=== PATIENT | male | born 1950 | race Caucasian/White ===

== ENCOUNTER → 2019-12-03 09:22 | Outpatient (CLI) | payer MEDICARE, SELFPAY ==
--- NOTE | ~2019-12-03 | MR_ITS ---
EXAMINATION: MR lumbar spine wo con EXAM DATE: 12/03/2019 09:56 INDICATION: Low back pain, bilateral hip pain. Difficulty walking. TECHNIQUE: Multi-sequential, multiplanar MR images of the lumbar spine were obtained without contrast . Sagittal T1, T2, T2 fat saturation images. Axial T2 weighted images. There is no prior study for comparison. FINDINGS: There is moderate to severe disc disease L1-2, L4-5 and L5-S1, moderate at the L2-3 and 3-4 levels. There are no focal marrow signal abnormalities suspicious for malignancy or acute fracture. There is 2 mm retrolisthesis L3 on L4. The vertebral bodies are otherwise aligned. The conus medull alessia terminates at the T12-L1 level and has normal signal intensity and morphology. There is a right renal fluid intensity lesion measuring about 3 cm, incompletely imaged, likely a cyst. Level by level evaluation: T12-L1: Disc does not extend beyond the endplate margin. Facet arthropathy: Mild. Neural foraminal stenosis: No stenosis. Central canal stenosis: No stenosis. L1-L2: There is a moderate diffuse disc bulge. Facet arthropathy: Mild. Neural foraminal stenosis: No stenosis. Central canal stenosis: Mild. L2-L3: There is a moderate diffuse disc bulge. Facet arthropathy: Mild. Neural foraminal stenosis: Mild left. Central canal stenosis: Mild. L3-L4: There is a moderate diffuse disc bulge. Facet arthropathy: Mild to moderate. Neural foraminal stenosis: Mild to moderate bilateral. Central canal stenosis: Mild to moderate. L4-L5: There is a moderate diffuse disc bulge. Facet arthropathy: Mild to moderate. Neural foraminal stenosis: Moderate bilateral. Central canal stenosis: Mild. L5-S1: There is a moderate diffuse disc bulge. Facet arthropathy: Mild. Neural foraminal stenosis: Mild to moderate bilateral. Central canal stenosis: Mild. IMPRESSION: 1. Overall moderate to severe disc disease, mild to moderate arthropathy and stenosis. Reviewed, dictated and finalized at location A. IMPRESSION: 1. Overall moderate to severe disc disease, mild to moderate arthropathy and s tenosis.
== END ==
PROVIDERS: Visit Provider Orthopaedic Surgery
DX: M48.062 Spinal stenosis, lumbar region with neurogenic claudication (principal); M51.24 Other intervertebral disc displacement, thoracic region
CPT/HCPCS: 72148

== ENCOUNTER → 2020-04-04 09:54 | Outpatient (CLI) | payer MEDICARE, SELFPAY ==
--- NOTE | ~2020-04-04 | MR_ITS ---
EXAMINATION: MR knee RT wo con DATE: 04/04/2020 11:07 INDICATION: Internal derangement of the right knee TECHNIQUE: Magnetic resonance imaging (MRI) of the right knee was performed without intravenous contr ast. Sequences included coronal PD-weighted FSE, coronal PD-weighted FS FSE, sagittal T2-weighted FS E, sagittal PD-weighted FS FSE and axial PD weighted fat saturated FSE. COMPARISON: None. FINDINGS: Medial compartment: Complex tear of the body and posterior horn of the medial meniscus with small meniscal body and macer ated appearance to the posterior horn. Full/near full-thickness chondral ulceration with underlying s ubarticular edema at the central to medial aspect of the medial tibial plateau. Additional deep chond ral ulceration and fissuring throughout the weightbearing medial femoral condyle with mild irregulari ty to the articular cortex along the medial margin of the central to posterior weightbearing medial f emoral condyle. Lateral compartment: Lateral meniscus is normal. Chondral surface irregularity with partial thickness fissuring at the pos terior aspect of the lateral tibial plateau and along the anterior weightbearing lateral femoral cond yle. Patellofemoral compartment: Deep chondral fissuring with mild subarticular edema at the apical ridge. Deep chondral fissuring wit hout degenerative subchondral changes at the medial patellar facet and inferior aspect of the lateral facet. Trochlear cartilage is relatively preserved. Ligaments and tendons: Anterior and posterior cruciate ligaments are normal. The medial collateral ligament and fibular janeen ateral ligament complex are normal. Mild distal quadriceps tendinopathy. Patellar tendon is normal. T he visualized medial and lateral hamstring tendons as well as the iliotibial band are normal. Fluid: Small knee joint effusion. No loose osteochondral bodies identified. Moderate-sized Friend's cyst. Osseous/other: Aside from the previously noted subarticular edema there is normal marrow signal. No fracture or path ologic marrow replacing process. IMPRESSION: 1. Complex medial meniscal tear. 2. 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 3. Likely reactive small right knee joint effusion. 4. Moderate-sized Friend's cyst. Reviewed, dictated and finalized at location A. E RECORDER IMPRESSION: 1. Complex medial meniscal tear. 2. 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 3. Likely reactive small right knee joint effusion. 4. Moderate-sized Friend's cyst.
== END ==
PROVIDERS: PCP Internal Medicine; Visit Provider Orthopaedic Surgery
DX: M71.21 Synovial cyst of popliteal space [Baker], right knee (principal); M17.11 Unilateral primary osteoarthritis, right knee; S83.231A Complex tear of medial meniscus, current injury, right knee, initial encounter; X58.XXXA Exposure to other specified factors, initial encounter
CPT/HCPCS: 73721

== ENCOUNTER 2020-04-11 11:36 | Outpatient (CLI) | payer MEDICARE, SELFPAY ==
--- NOTE | 2020-04-11 11:40 | ECG_ITS ---
Measurements Intervals [place] Rate: 71 P: 1 CT: 161 QRS: -21 QRSD: 113 T: 9 QT: 357 QTc: 389 Interpretive Statements SINUS RHYTHM INCOMPLETE RIGHT BUNDLE BRANCH BLOCK DELAYED PRECORDIAL R/S TRANSITION CONSIDER INFERIOR INFARCT, AGE INDETERMINATE ABNORMAL ECG Electronically Signed On 04-11-2020 11:51:29 [employer] by Alcides Moreno D.O.
== END 2020-04-11 11:37 | disposition home or self-care (01) ==
LOC: ANHSURGERY 11:39
PROVIDERS: PCP Internal Medicine; Visit Provider Orthopaedic Surgery
DX: Z01.818 Encounter for other preprocedural examination (principal); Z20.828 Contact with and (suspected) exposure to other viral communicable diseases; I45.10 Unspecified right bundle-branch block
CPT/HCPCS: 93005

== ENCOUNTER 2020-04-15 01:15 | Outpatient (CLI) | payer MEDICARE, SELFPAY ==
[2020-04-15 18:58] LABS: SARS-CoV-2 RNA PCR Negative
== END 2020-04-15 01:16 | disposition home or self-care (01) ==
LOC: ANHCOVIDDT 01:16
PROVIDERS: PCP Internal Medicine; Visit Provider Orthopaedic Surgery
DX: Z01.818 Encounter for other preprocedural examination (principal); Z20.828 Contact with and (suspected) exposure to other viral communicable diseases
CPT/HCPCS: 87635; C9803; U0003

== ENCOUNTER 2020-04-18 01:55 | Day surgery (SDC) | payer MEDICARE, SELFPAY ==
[2020-04-10 14:16] VITALS: BMI 29.2
--- NOTE | 2020-04-17 12:08 | WPDANESEPPF ---
Anes - Initial Pre Proc Eval Procedure: Operation Date: 04/18/20 14:30 Proposed Procedures p Arthroscopic Partial Medial Meniscectomy Right Knee - Tonny Ross MD Date/Time: 04/17/20 12:08 Surgeon: Tonny Ross MD Pre Op Diagnosis: primary OA, acute meniscus tear right knee Patient Data Age: 70 Gender: M Height: 1.83 m Weight: 98 kg Allergies Allergy/AdvReac Type Severity Reaction Status Date / Time No Known Allergies Allergy Verified 04/18/20 12:23 Home Medications Medication Instructions Recorded Confirmed Type amlodipine 10 mg tablet 10 mg PO QAM 04/05/19 04/18/20 History metoprolol tartrate 25 mg tablet 25 mg PO QAM 04/05/19 04/18/20 History atorvastatin 40 mg PO HS 04/10/20 04/18/20 History gabapentin 600 mg PO TID 04/10/20 04/18/20 History lisinopril 10 mg PO QAM 04/10/20 04/18/20 History Patient hx anesthesia problems: none Family hx anesthesia problems: none PMFSH Past Medical History Medical History (Updated 04/18/20 @ 13:30 by Jem Ortega MD) Abdominal aortic aneurysm (~06/10/16) repaired 2018, thoracic aaa - watching CAD (coronary artery disease) Essential (primary) hypertension History of angina Lumbar degenerative disc disease Other fatigue Pure hypercholesterolemia, unspecified Rotator cuff tear (~03/09/18) Rt Rotator cuff tear, left (~04/11/14) Rotator cuff tear, right (~05/09/17) Spinal stenosis of lumbar region with neurogenic claudication Tear of right biceps muscle (~02/01/14) Testicular hypofunction Thoracic aortic aneurysm without rupture 4.2cm in 2017 Surgical History Surgical History History of AAA (abdominal aortic aneurysm) repair History of elbow surgery (~1998) History of lumbar fusion (~1998) Family History Family History Sibling Hypertension Patient's brother is in good health Family history of malignant neoplasm of breast in first degree relative Family history of malignant neoplasm of breast Mother Diabetes mellitus, Onset Age: 83 Family history of cardiovascular disease, Onset Age: 83 Father Malignant neoplasm of prostate Patient's father is in good health Social History Social History Smoking packs per day: 1 Smoking cigarettes per day: 20.0 Years smoked: 30 Smoking pack-years: 30.00 Smoking status: Former smoker Second hand tobacco smoke exposure: No Smoking end date: 02/26/98 Alcohol intake: former Alcohol use details: SOCIAL DRINKER IN PAST Substance use: never Living arrangements: with family Additional living arrangements comments: Spiritual care concerns: No Anes - Eval Final PreProcedure Day of Procedure 04/17/20 12:08 Patient weight: overweight Heart: regular rate and rhythm Lungs: clear to auscultation and normal air movement Airway: Mallampati scale class II Neurological: alert and oriented Last oral intake: >/= 8 hours ASA classification: IV Emergent: no Anesthetic plan: proceed Anesthesia type and monitoring: general LMA Informed Consent: The patient's anesthetic plan and its attendant risks and benefits were discussed with the patient/family/POA. Questions were solicited and answers provided to the satisfaction of the patient/family/POA.
[2020-04-18] VITALS (9 sets, daily range): BP systolic 104–152; BP diastolic 51–94; PULSE 67–80; RESP 10–20; TEMP 36.1–37.2; O2SAT 96–97
[2020-04-18] MEDS: LACTATED RINGERS 1,000 ML 30 ML IV CONT ×2 (12:51→16:14)
[2020-04-18] MEDS: ACETAMINOPHEN 500 MG TABLET 1000 MG PO (12:52)
[2020-04-18] MEDS: KETOROLAC 15 MG/ML VIAL (*BKC) IV PUSH (12:53)
--- NOTE | 2020-04-18 14:37 | SUR.PREOP ---
Discussed delay with patient.
--- NOTE | 2020-04-18 15:16 | WPDHPUPDATE1 ---
History and Physical Update Update Date/Time: 04/18/20 15:16 History and Physical has been reviewed, including an updated exam of the patient. There are NO changes in the patient's condition. Risks, benefits, and alternatives have been discussed and questions answered. Patient agrees to proceed with procedure.
[2020-04-18] MEDS: ceFAZolin 2 GM/D5W 50 ML 2 GM/50 ML BAG IVPB (15:18)
[2020-04-18] MEDS: BUPIVACAINE/EPINEPHRINE 0.25% 10 ML VIAL 20 ML INFILTRATE (15:34)
--- NOTE | 2020-04-18 16:47 | P.OP_ITS ---
Procedure Note - Detailed Date of procedure: 04/18/20 Pre-op diagnosis: primary OA, acute meniscus tear right knee Medial meniscus tear. Post-op diagnosis: same Procedure performed: Arthroscopic partial medial meniscectomy. Anesthesia: ZHANG Surgeon: Tonny Ross MD Environmental Services Specialist: Kaylen Yarbrough PA-C Estimated blood loss (mL): 5 Complications: None Condition: stable Findings: Brief History: The patient complained of knee pain, swelling and m echanical symptoms despite conservative treatment. MRI confirmed the presence of a meniscus tear. Operative Findings: The medial meniscus was severely damaged medially and posteriorly with complex degenerative tearing. The bone at the medial aspect of the tibia was exposed. Most of the tibia had good cartilage as did the femur with only grade 1/2 chondromalacia. The anterior meniscus could. Somewhat pathologic and displaced anteriorly but without acute tearing. The meniscus was debrided to a stable rim. The lateral compartment showed an intact meniscus. Grade 1/2 chondromalacia and a modest area the weight-bearing lateral femoral condyle. The patella showed grade 2 chondromalacia in the lateral facet. Trochlea was benign. There was a moderate synovitis in the knee. Procedure Details: The patient was identified and the surgical site confirmed and signed in the preoperative holding area. Antibiotics were started per protocol. She was brought to the operative room and transferred to the OR table. A general anesthetic was administered. Supine position with the operative lower extremity position in the leg talbot after placement of a well padded tourniquet. The leg support was lowered and the contralateral limb was supported with a soft bolster. The knee was prepped and draped in the usual sterile fashion. A time-out was performed. The portal sites were marked and infiltrated with 0.5% Marcaine 20 mL. The limb was exsanguinated and the tourniquet inflated to 300 mL Hg. Standard inferolateral and inferomedial portals were established. Inflow was obtained with the saline pump. The camera was introduced. Diagnostic inspection of the joint was accomplished. The meniscus was debrided with the arthroscopic shaver and punches until stable. The arthroscopic instruments were removed. The tourniquet released and wounds closed with subcutaneous 3-0 Monocryl absorbable suture. Steri strips and a sterile dressing were applied. A light elastic wrap was placed. The patient was extubated and brought to the recovery room in stable condition.
[2020-04-18] MEDS: fentaNYL CITRATE INJ (*CRX) 100 MCG/2 ML VIAL 25 MCG IV PUSH (17:14)
== END 2020-04-18 18:21 | disposition home or self-care (01) ==
PROVIDERS: PCP Internal Medicine; Visit Provider Orthopaedic Surgery
PROC: (CPT 29870; principal; 2020-04-18 14:30)
DX: M23.331 Other meniscus derangements, other medial meniscus, right knee (principal); M17.11 Unilateral primary osteoarthritis, right knee; M94.261 Chondromalacia, right knee; I71.2 Thoracic aortic aneurysm, without rupture; I10 Essential (primary) hypertension; I25.10 Atherosclerotic heart disease of native coronary artery without angina pectoris; E78.00 Pure hypercholesterolemia, unspecified; Z87.891 Personal history of nicotine dependence
CPT/HCPCS: 29881; 93005; A9270; C9803; J0690; J1100; J1885; J2405; J2704; J3010; J7120; U0003

== ENCOUNTER 2020-05-23 09:30 | Outpatient (RCR) | payer MEDICARE, SELFPAY ==
--- NOTE | 2020-04-25 09:27 | PTOPEVAL ---
Thank you for referring Adrien Root to [facility].? The patient is scheduled to be seen for therapy? 1 x/week for 6 weeks. Please review, sign, date and return this plan of care JOHN. I agree with and certify that the following plan of care is medically necessary. Referring Physician Date Attending Provider: Tonny Ross MD Referring Provider: *PT Outpatient Evaluation Start: 04/25/20 08:14 Freq: Status: Active Protocol: Document 04/25/20 08:15 ENEIDA (Rec: 04/25/20 09:16 ENEIDA [id number]) Therapy Assessment Status Assessment Status Assessment Status Evaluation Outpatient Past Medical History Past Medical History Source of Past Medical History Patient,Recalled from Previous Visit, Confirmed with Patient /Family Neurological History Hx Neurological Disorders No Significant History Cardiovascular History Hx Aneurysm Yes: AAA REPAIRED ~2017, THORACIC AORTIC ANEURYSM- WATCHING Hx Angina Yes: 1994 Hx Hypercholesterolemia Yes Hx Hypertension Yes Hx Other Cardiac Disorders Yes: DR TOUSSAINT Respiratory History Hx Sleep Apnea Yes: CPAP Gastrointestinal History Hx Gastrointestinal Disorders No Significant History Genitourinary History Hx Genitourinary Disorders No Significant History Musculoskeletal History Hx Arthritis Yes: OA-LOWER BACK, KNEE Hx Fractures Yes: PLATE LT FOREARM 1997 Hx Orthopedic Surgery Yes: ROTATOR CUFF SURG X2 ON RT, X1 ON LT, R partial medial meniscectomy 04/16 Hx Other Musculoskeletal Disorders Yes: RT KNEE MENISCUS TEAR Hematological History Hx Hematological Disorders No Significant History Endocrine History Hx Endocrine Disorders No Significant History HEENT History Hx Tonsillectomy Yes: CHILD Integumentary History Hx Skin Disorders No Significant History Reproductive History Hx Reproductive Disorders No Significant History Psychosocial History Hx Psychiatric Disorders No Significant History Pain History History of Any Previous or Ongoing No Significant History Instance of Pain Anesthesia History Hx Anesthesia Reactions No Significant History Other History Hx Implanted Device Yes: LT FOREARM PLATE Evaluation Information Problem Diagnosis right knee torn meniscus Onset chronic Additional Evaluation Detail s/p right partial medial meniscectomy 04/18/20. He has had back pain for years. Subjective Information
--- NOTE | 2020-05-23 10:19 | PTOPEVAL ---
Thank you for referring Adrien Root to [facility].? Pt has received 5 therapy visits to address LE limitation related to knee surgery. He demonstrates limited progress with pain and function. He has partially achieved his therapy goals at this time. DC skilled therapy with pt to cont with this HEP. Please review, sign, date and return this plan of care JOHN. I agree with and certify that the following plan of care is medically necessary. Referring Physician Date Attending Provider: Tonny Ross MD *PT Outpatient Evaluation Start: 04/25/20 08:14 Freq: Status: Active Protocol: Document 05/23/20 09:31 ENEIDA (Rec: 05/23/20 10:17 CAP [id number]) Therapy Assessment Status Assessment Status Assessment Status Re-evaluation/Discharge Note Outpatient Past Medical History Past Medical History Source of Past Medical History Patient,Recalled from Previous Visit, Confirmed with Patient /Family Neurological History Hx Neurological Disorders No Significant History Cardiovascular History Hx Aneurysm Yes: AAA REPAIRED ~2017, THORACIC AORTIC ANEURYSM- WATCHING Hx Angina Yes: 1994 Hx Hypercholesterolemia Yes Hx Hypertension Yes Hx Other Cardiac Disorders Yes: DR TOUSSAINT Respiratory History Hx Sleep Apnea Yes: CPAP Gastrointestinal History Hx Gastrointestinal Disorders No Significant History Genitourinary History Hx Genitourinary Disorders No Significant History Musculoskeletal History Hx Arthritis Yes: OA-LOWER BACK, KNEE Hx Fractures Yes: PLATE LT FOREARM 1997 Hx Orthopedic Surgery Yes: ROTATOR CUFF SURG X2 ON RT, X1 ON LT, R partial medial meniscectomy 04/16 Hx Other Musculoskeletal Disorders Yes: RT KNEE MENISCUS TEAR Hematological History Hx Hematological Disorders No Significant History Endocrine History Hx Endocrine Disorders No Significant History HEENT History Hx Tonsillectomy Yes: CHILD Integumentary History Hx Skin Disorders No Significant History Reproductive History Hx Reproductive Disorders No Significant History Psychosocial History Hx Psychiatric Disorders No Significant History Pain History History of Any Previous or Ongoing No Significant History Instance of Pain Anesthesia History Hx Anesthesia Reactions No Significant History Other History Hx Implanted Device Yes: LT FOREARM PLATE Evaluation Information Problem Diagnosis right knee torn meniscus Onset chronic Additional Evaluation Detail s/p right partial medial menisce
== END 2020-05-24 08:15 | disposition home or self-care (01) ==
LOC: ANHPT 09:30
PROVIDERS: PCP Internal Medicine; Visit Provider Orthopaedic Surgery
DX: Z48.89 Encounter for other specified surgical aftercare (principal)
CPT/HCPCS: 97110; 97112; 97140; 97162

== ENCOUNTER 2021-01-26 08:03 | Outpatient (CLI) | payer MEDICARE, SELFPAY ==
--- NOTE | 2021-01-26 | ECG_ITS ---
Measurements Intervals [place] Rate: 75 P: 28 CO: 191 QRS: -18 QRSD: 98 T: 6 QT: 376 QTc: 420 Interpretive Statements SINUS RHYTHM INFERIOR INFARCT, AGE INDETERMINATE ABNORMAL ECG Electronically Signed On 01-26-2021 10:25:58 CDT by Alcides Moreno D.O.
--- NOTE | ~2021-01-26 | CT_ITS ---
EXAMINATION: CT LE RT wo con DATE: 01/26/2021 08:39 INDICATION: Internal derangement of the right knee TECHNIQUE: High resolution computed tomography (CT) of the right knee was performed without intraveno us contrast. Additional sagittal and coronal reconstructions were performed. Automated exposure contr ol and iterative reconstruction technique were employed. The dose-length product was 1832.00 mGy-cm. COMPARISON: Right knee radiographs dated 01/20/2020 and MRI dated 04/04/2020 FINDINGS: Alignment is normal at the right hip, knee and ankle. No fracture. Tricompartmental osteoarthritis at the right knee with joint space narrowing, mild to moderate at the medial compartment and mild at th e lateral compartment, both which may be underestimated on nonweightbearing imaging. Mild subarticula r eburnation at both sides of the joint space the medial compartment with mild reticular cystic clemons e at the medial tibial plateau. Small marginal osteophytes along the patella with larger subchondral osteophyte at the medial side of the medial patellar facet. Small right knee joint effusion. Addition al mild polyarticular osteoarthritis at the right hip, ankle and visualized mid and hindfoot. No righ t hip or ankle joint effusion. Small enthesopathic ossicles at the distal Achilles tendon. Prostatome esmer. Small fat-containing right inguinal hernia. No pathologically enlarged lymphadenopathy at the r ight groin or visualized pelvis. IMPRESSION: 1. Right knee tricompartmental osteoarthritis with small joint effusion. Reviewed, dictated and finalized at location A.
[2021-01-26 09:33] LABS: Hematocrit 50.2 % (42.0-52.0); Hemoglobin 17.1 g/dL (14.0-18.0)
[2021-01-26 09:44] LABS: Albumin Level 4.6 g/dL (3.5-5.1); Estimated Glomerular Filt Rate > 60; Glucose 92 mg/dL (65-110)
[2021-01-26 09:50] LABS: Urine Cotinine NEGATIVE
[2021-01-26 09:56] LABS: Hemoglobin A1C 5.6 % (<5.7)
== END 2021-01-26 08:04 | disposition home or self-care (01) ==
PROVIDERS: PCP Internal Medicine; Visit Provider Orthopaedic Surgery
DX: M23.8X1 Other internal derangements of right knee (principal); M17.11 Unilateral primary osteoarthritis, right knee; M25.461 Effusion, right knee
CPT/HCPCS: 73700; 80307; 82040; 82565; 82947; 83036; 85014; 85018; 93005

== ENCOUNTER 2021-03-19 10:02 | Outpatient (CLI) | payer MEDICARE, SELFPAY ==
[2021-03-19 11:18] LABS: Albumin Level 4.5 g/dL (3.5-5.1)
[2021-03-19 11:23] LABS: Anion Gap 7 mmol/L (8-16); Blood Urea Nitrogen 14 mg/dL (9-20); Calcium 9.9 mg/dL (8.4-10.2); Carbon Dioxide 27 mmol/L (22-30); Chloride 100 mmol/L (98-107); Estimated Glomerular Filt Rate > 60; Glucose 92 mg/dL (65-110); Potassium 4.1 mmol/L (3.4-5.0); Sodium 134 mmol/L (137-145)
[2021-03-19 11:32] LABS: Basophils Absolute Auto 0.1 K/mm3 (0.0-0.1); Basophils Percent Auto 0.8 % (0.2-1.2); Eosinophils Absolute Auto 0.2 K/mm3 (0-0.3); Eosinophils Percent Auto 2.2 % (0-4.4); Hematocrit 50.5 % (42.0-52.0); Hemoglobin 17.3 g/dL (14.0-18.0); Immature Granulocyte Absolute 0.03 K/mm3 (0.00-0.031); Immature Granulocyte Percent A 0.4 % (0-0.5); Lymphocytes Absolute Auto 1.13 K/mm3 (0.9-3.2); Lymphocytes Percent Auto 15.8 % (18.3-44.2); Mean Corpuscular HGB Conc 34.3 g/dl (32-36); Mean Corpuscular Hemoglobin 31.8 pg (26-34); Mean Corpuscular Volume 92.8 fl (80-100); Mean Platelet Volume 10.4 fl (7.4-10.4); Monocytes Absolute Auto 0.7 K/mm3 (0.1-0.6); Monocytes Percent Auto 9.4 % (2.6-8.5); Neutrophils Absolute Auto 5.1 K/mm3 (1.3-6.7); Neutrophils Percent Auto 71.4 % (45.5-73.1); Platelet Count Result 223 k/mm3 (150-375); Red Blood Count 5.44 M/mm3 (4.6-6.20); White Blood Count 7.2 K/mm3 (4.5-10.0)
[2021-03-19 11:50] LABS: Urine Cotinine NEGATIVE
== END 2021-03-19 10:03 | disposition home or self-care (01) ==
LOC: ANHSURGERY 10:07
PROVIDERS: Anesthesiology; PCP Internal Medicine; Visit Provider Orthopaedic Surgery
DX: M23.91 Unspecified internal derangement of right knee (principal); Z79.899 Other long term (current) drug therapy; Z01.818 Encounter for other preprocedural examination
CPT/HCPCS: 80048; 80307; 82040; 85025; 87081

== ENCOUNTER 2021-04-12 00:15 | Day surgery (SDC) | payer MEDICARE, SELFPAY ==
[2021-03-19 10:01] VITALS: BP 152/76; PULSE 74; RESP 20; TEMP 37.2; O2SAT 97; BMI 33.4
--- NOTE | 2021-03-19 10:07 | PC.NURSE ---
Report to the Outpatient Waiting Room, entrance under the green pavilion located off [facility], at time _0600__ on date _04/12/21_. OR Time: __0730___. - You and your visitor will be asked a series of questions to screen for COVID 19 for your protection. - A mask is required within the hospital. - Only one visitor is allowed at this time. Patient visitors will be guided where to wait when not with patient. Preoperative COVID Testing Requirements: No COVID Test needed if: (proof is required; if not received patient will have Rapid Test prior to entry) - Patient has received COVID Vaccine at least 14 days prior to procedure date or - Patient has positive COVID test result within last 90 days of surgery date. COVID Test needed if above criteria is not met If not COVID vaccinated a COVID test must be conducted within 72 hours of surgery and patient is asked to isolate self from time of testing until procedure. You will go to the [facility] for your COVID testing. The [facility] is located at the corner of [address] [facility]. You will only be called if COVID results are positive and your surgeon may reschedule your elective surgery date. Patients may have clear liquids (water, carbonated beverages, clear teas, apple juice) until 3 hours prior to surgery ( 0430 AM) with a maximum of 20 ounces. - No food from midnight until time of surgery - Infants may have breast milk until 4 hours before surgery, formula 6 hours prior to surgery. - Children will be allowed to drink immediately following surgery. If applicable, please bring a bottle or sippy cup to assist with drinking. Juice, water, soda, and popsicles are readily available. For infants on formula, please bring formula the day of surgery. Pacifiers are allowed. Take the following medications with a SIP of water the morning of surgery: _AMLODIPINE, GABAPENTIN, METOPROLOL____ Medications to discontinue per physician ____ALL SUPPLEMENTS & VITAMINS ____ Date to take last dose__04/08/21 Please no make-up, nail estonian, hairspray, perfume, deodorant, or body powder the day of surgery. No jewelry (including any body piercings) or valuables the day of surgery, leave them at home. Please take a shower or bath the night before, or the morning of, surgery with an antibacterial soap. Wear comfortable, loose fitting clothing. Children are encouraged to wear pajamas. - Jewelry must be removed prior to entering the operating room. Rings and piercings that are not removed may be cut off. - The hospital will not accept responsibility for valuables. - Please leave all valuables, including medications, at home the day of surgery. If you are going home after surgery, a licensed dedicated local truck driver must drive you home. - NO public transportation without another adult. - We recommend that an adult stay with you for 24 hours following discharge. - We also recommend that you do not drive, make important decision, drink alcoholic beverages, or take any drugs that were not prescribed by your health care provider for at least 24 hours after your discharge time. For Pediatric surgeries, we recommend two adults accompany the child home (only one inside the building at this time). Follow any additional instructions given to you from your surgeon. STOP ASPIRIN 7 DAYS PRIOR TO SURGERY (04/04/21) TOTAL JOINT CLASS 03/28/21 @ [address] [place] [address], USE MAIN ENTRANCE - LOWER LEVEL Telephone instructions given to PT and asked if any additional questions and then verbalized understanding. Patient advised to call surgeon office or pre surgery nurse liaison [phone] if any additional questions.
[2021-04-12] VITALS (18 sets, daily range): BP systolic 83–140; BP diastolic 50–76; PULSE 83–91; RESP 10–20; TEMP 36.6–37.2; O2SAT 86–97
--- NOTE | ~2021-04-12 | XR_ITS ---
EXAMINATION: XR knee RT 2V DATE: 04/12/2021 10:59 INDICATION: Right total knee arthroplasty. Postop. TECHNIQUE: 2 views of right knee were obtained. COMPARISON: Right knee radiographs 02/19/2020 FINDINGS: There is a total right knee arthroplasty with patellar resurfacing in near-anatomic alignme nt. No acute fracture. Again seen is a small fragment of ossification adjacent to the proximal tip of fibula. There is gas in the soft tissues and knee joint, consistent with recent surgery. IMPRESSION: 1. Total right knee arthroplasty in near-anatomic alignment. Reviewed, dictated and finalized at location A. ER CHAIN OFFBEARER
[2021-04-12] MEDS: ACETAMINOPHEN 500 MG TABLET 1000 MG PO (06:28)
[2021-04-12] MEDS: TRANEXAMIC ACID 1,000MG/ISO100 1,000 MG/100 ML BAG 200 MG IVPB (06:43)
[2021-04-12] MEDS: LACTATED RINGERS 1,000 ML 30 ML IV CONT ×2 (06:45→10:50)
--- NOTE | 2021-04-12 07:02 | WPDANESEPPF ---
Anes - Initial Pre Proc Eval Procedure: Operation Date: 04/12/21 07:30 Proposed Procedures p Right Custom Total Knee Arthroplasty - Tonny Ross MD Date/Time: 04/12/21 07:02 Surgeon: Tonny Ross MD Pre Op Diagnosis: internal derangement right knee Patient Data Age: 71 Gender: M Height: 1.78 m Weight: 105.7 kg Last Vital Signs Temp 37.2 C 03/19/21 10:01 Pulse 74 03/19/21 10:01 Resp 20 03/19/21 10:01 BP 152/76 H 03/19/21 10:01 Pulse Ox 97 03/19/21 10:01 Allergies Allergy/AdvReac Type Severity Reaction Status Date / Time No Known Allergies Allergy Verified 03/19/21 10:18 Home Medications Medication Instructions Recorded Confirmed Type amlodipine 10 mg tablet 10 mg PO QAM 04/05/19 03/19/21 History metoprolol tartrate 25 mg tablet 25 mg PO QAM 04/05/19 03/19/21 History atorvastatin 40 mg PO HS 04/10/20 03/19/21 History gabapentin 600 mg tablet 900 mg PO TID tablet 11/29/20 03/19/21 History Lactobac 40-Bifido 3-S.thermop 1 cap PO DAILY 03/19/21 03/19/21 History [Probiotic] ascorbic acid (vitamin C) [Vitamin 1 g PO DAILY 03/19/21 03/19/21 History C] aspirin 81 mg PO DAILY 03/19/21 03/19/21 History cholecalciferol (vitamin D3) 125 mcg PO DAILY 03/19/21 03/19/21 History coenzyme Q10 [CoQ-10] 200 mg PO DAILY 03/19/21 03/19/21 History hydrochlorothiazide 25 mg QAM 03/19/21 03/19/21 History lisinopril 20 mg PO QAM 03/19/21 03/19/21 History multivitamin [Multi-Vitamin] 1 tablet PO DAILY 03/19/21 03/19/21 History ejzotpx-jpfl-fkafx-oreg-capryl 1 cap PO DAILY 03/19/21 03/19/21 History Patient hx anesthesia problems: none Family hx anesthesia problems: none Results Review: All pre-operative results and documents have been reviewed as part of the pre-operative evaluation. [facility] Past Medical History Medical History Abdominal aortic aneurysm (~06/10/16) repaired 2018, thoracic aaa - watching CAD (coronary artery disease) Essential (primary) hypertension History of angina Lumbar degenerative disc disease Other fatigue Pure hypercholesterolemia, unspecified Rotator cuff tear (~03/09/18) Rt Rotator cuff tear, left (~04/11/14) Rotator cuff tear, right (~05/09/17) Spinal stenosis of lumbar region with neurogenic claudication Tear of right biceps muscle (~02/01/14) Testicular hypofunction Thoracic aortic aneurysm without rupture 4.2cm in 2017 Surgical History Surgical History History of AAA (abdominal aortic aneurysm) repair History of elbow surgery (~1998) History of lumbar fusion (~1998) Family History Family History Sibling Hypertension Patient's brother is in good health Family history of malignant neoplasm of breast in first degree relative Family history of malignant neoplasm of breast Mother Diabetes mellitus, Onset Age: 83 Family history of cardiovascular disease, Onset Age: 83 Father Malignant neoplasm of prostate Patient's father is in good health Social History Social History Smoking packs per day: 1 Smoking cigarettes per day: 20.0 Years smoked: 30 Smoking pack-years: 30.00 Smoking status: Former smoker Tobacco type: cigarettes Second hand tobacco smoke exposure: No Smoking end date: 04/28/97 Additional smoking assessment comments: DENIES ALL FORMS OF TOBACCO USE Alcohol intake: former Alcohol use details: STATES SOCIAL DRINKER - QUIT MANY YEARS AGO Substance use: never Substance use type: does not use Living arrangements: with family Additional living arrangements comments: Spiritual care concerns: No Anes - Eval Final PreProcedure Day of Procedure 04/12/21 07:02 Patient weight: obese Heart: regular rate and rhythm Lungs: clear to auscultation Airway: Darrell
--- NOTE | 2021-04-12 07:11 | WPDHPUPDATE1 ---
History and Physical Update Update Date/Time: 04/12/21 07:11 History and Physical has been reviewed, including an updated exam of the patient. There are NO changes in the patient's condition. Risks, benefits, and alternatives have been discussed and questions answered. Patient agrees to proceed with procedure.
--- NOTE | 2021-04-12 07:19 | WPDANESPNB ---
Anes - Peripheral Nerve Block Date/Time: 04/12/21 07:19 I have discussed with the patient/family/POA the placement of a peripheral nerve block for post-operative pain management, including associated risks, benefits, complications, and side effects. Alternative methods of post-operative analgesia were detailed. Questions were solicited and answers provided to the satisfaction of the patient/family/POA. Time-Out: A pre-procedural Time-Out was completed immediately before starting the procedure and confirmed: Patient Identification, Site, Procedure, Patient Position and the Availability of Requisite Equipment. Clinical Indications: Acute post-operative pain management requested by the operative surgeon. Nerve Block Insertion Note Anes-nerve block: adductor canal right Patient position: supine Skin prep: chlorhexidine Needle: 22 gauge, stimulating, insulated echogenic needle. Needle length: 80 mm Technique: ultrasound Injectate: bupivacaine 0.5% with epi 5 mcg/ml (30cc - no epi) Observations: tolerated well Complications: none Procedure start time:: 709 Procedure end time:: 713
[2021-04-12] MEDS: ceFAZolin 2 GM/D5W 50 ML 2 GM/50 ML BAG IVPB (07:41)
--- NOTE | 2021-04-12 11:14 | P.OP_ITS ---
Procedure Note - Detailed Date of Procedure 04/12/21 Pre-op Diagnosis Osteoarthritis right knee. Post-op Diagnosis same Procedure Performed Total knee arthroplasty, right. Surgeon Tonny Ross MD Detail Maker And Fitter Kaylen Vargas PA-C Anesthesia general and regional (Subsartorial block.) Findings Excellent bone quality. Anatomic fit. PCL release off of the proximal tibia. 1 mm thicker lateral polyethylene used. Description of Procedure Preoperative antibiotics were given. The limb was prepped and draped in the usual sterile fashion with a well-padded tourniquet high on the thigh. The limb was exsanguinated and the tourniquet inflated to 300 mmHg. A longitudinal incision was created just medial to the patella. A trivector approach to the knee was performed. Arthrotomy was taken down through the joint capsule. No significant releases were initially taken. The femur was exposed and the F1 jig was applied. The coring tool was used to remove the cartilage for the F2 jig to sit flush with the bone. The jig was pinned and the distal cut carefully taken. Caliper measurements confirmed appropriate bony resections according to the preoperative templated plan. The F4 cutting jig for the femur was applied, at the standard rotation. The AP and anterior chamfer cuts were taken. The F5 jig was applied and the posterior chamfer cuts were taken. The tibia was prepared using the T1 jig, after removing cartilage for the jig contact points. Proper alignment was checked with the alignment janny. The tibia was cut using the T1u guide. Gap balancing was performed. Gap measurements were taken and the knee was trialed. Excellent alignment and soft tissue balancing was confirmed. The posterior cruciate ligament was recessed along the proximal tibia. The patella was cut for resurfacing. Three lug holes were drilled. Meniscal remnants were removed. The trial components were assembled. Excellent range of motion and proper soft tissue balancing were confirmed throughout the full range of motion. Patellar tracking was excellent. The knee was copiously irrigated periodically throughout the procedure. The real implants were cemented into position. Excess cement was carefully removed. The wound was clos ed in layers with interrupted #1 Vicryl suture, 2-0 strata fix suture, 0 strata fix suture, 2-0 strata fix suture. Steri-Strips placed on the skin with the knee flexed. Sterile bulky dressing applied. The patient was brought to the recovery room in stable condition. There were no complications. Physician accounting administrative assistant, Kaylen Vargas PA-C, required for surgery; including patient positioning, draping, tissue retraction, maintaining instrument position, cement removal, wound closure, and dressing placement. Implants Conformis Custom total knee arthroplasty. Cemented. Cruciate retaining. 6B insert. 38 mm round patella. Estimated Blood Loss 100 Drains No Pathology none sent Complications No immediate complications Condition stable Disposition observation
[2021-04-12] MEDS: fentaNYL CITRATE INJ (*CRX) 100 MCG/2 ML VIAL 25 MCG IV PUSH ×4 (11:50→12:55)
--- NOTE | 2021-04-12 13:37 | SUR.PHASEII ---
pt is in preop room 10 for recovery
--- NOTE | 2021-04-12 14:25 | SUR.PHASEII ---
AT 1315 PT WAS WITH PT PERFORMING EXERCISES ON 2L O2
--- NOTE | 2021-04-12 14:26 | SUR.PHASEII ---
PT ASKED FOR AN ICE MACHINE. MELINA CABRAL SAID SHE WAS GOING TO CALL THE SURGEONS OFFICE TO ASK FOR A MACHINE. MARIANNA RN CALLED AND GOT AN ORDER FOR THE ICE MACHINE. PT ASKED ABOUT MELOXICAM AND GABAPENTIN TOGETHER AND MD PIEDRA SAID THAT WAS FINE.
--- NOTE | 2021-04-12 14:35 | SUR.PHASEII ---
PT GIVEN IS TO TAKE SOME DEEP BREATHS AND HIS O2 IMPROVED
--- NOTE | 2021-04-12 14:46 | SUR.PHASEII ---
PT RECEIVED HIS ICE MACHINE
== END 2021-04-12 14:45 | disposition home or self-care (01) ==
PROVIDERS: PCP Internal Medicine; Visit Provider Orthopaedic Surgery
PROC: (CPT 27447; principal; 2021-04-12 07:30)
DX: M17.11 Unilateral primary osteoarthritis, right knee (principal); G89.18 Other acute postprocedural pain; I25.10 Atherosclerotic heart disease of native coronary artery without angina pectoris; I10 Essential (primary) hypertension; E78.00 Pure hypercholesterolemia, unspecified; Z79.82 Long term (current) use of aspirin; Z98.1 Arthrodesis status; Z87.891 Personal history of nicotine dependence; E66.9 Obesity, unspecified; Z68.32 Body mass index [BMI] 32.0-32.9, adult
CPT/HCPCS: 27447; 64447; 36415; 73560; 80048; 80307; 82040; 85025; 86850; 86900; 86901; 87081; 97110; 97161; A9270; C1713; C1776; J0171; J0690; J1100; J1170; J1885; J2250; J2270; J2370; J2405; J2704; J2795; J3010; J7120

== ENCOUNTER 2021-05-24 09:00 | Outpatient (RCR) | payer MEDICARE, SELFPAY ==
--- NOTE | 2021-04-26 14:48 | PTOPEVAL ---
PHYSICAL THERAPY EVALUATION AND PLAN OF CARE Thank you for referring Adrien Root to [facility] [place].? Adrien arrives for evaluation for physical therapy 2 weeks s/p right TKA. The patient is scheduled to be seen for therapy? 2x/week for 4-8 weeks. Please review, sign, date and return this plan of care JOHN. I agree with and certify that the following plan of care is medically necessary. Referring Physician Date Attending Provider: Tonny Ross MD Evaluation Diagnosis right TKA Onset 04/12/2021 Subjective Information is two weeks s/p right TKA. He Query Text:As Reported By Patient/ had a failed menisectomy from Family a year ago. He enters the clinic today with a straight cane. He used a walker for a couple of days and then started using the cane. I observe that with the cane he does have some antalgia off of the right. pain in the knee is pretty significant. States that he has a lot of sensitivity to touch over the skin. States that he will also occasionally get these shocks down the leg that are quite painful. He did have a spinal fusion in June 2020 but that does not seem to have made a difference . States he does have numbness along the lateral thigh and down the side of the leg. Prior Level of Function Home Setting Home Type House Environmental Barriers Stairs, 2-4 Self Report Pain Assessment Right Knee(s) Reported Pain Level 6 Pain Description Throbbing,Tightness Pain Frequency Acute,Continuous Other Pain Description sensitive to touch Lowest Pain Intensity 5 Greatest Pain Intensity 9 Pain Score Pain Score 6: Self Report Interventions Used Interventions Used By Clinicians Exercise,Ice Pain Relief Interventions Used By Exercise,Ice Patient Lower Extremity Range of Motion Knee Range of Motion Left Knee Flexion Range of Motion - Active 86 Knee Extension Range of Motion - Active -8 Query Text: Knee Range of Motion Limitations Edema,Pain Lower Extremity Muscle Strength Testing Knee Strength Right Knee Flexion Strength 4+ Good + Knee Extension Strength 3+ Fair + Extremity Circumference Assessment Circumference Assess
--- NOTE | 2021-05-24 09:48 | PTOPEVAL ---
PHYSICAL THERAPY DISCHARGE NOTE Thank you for referring Adrien Root to [facility].? Please review, sign, date and return this plan of care JOHN. I agree with and certify that the following plan of care is medically necessary. Referring Physician Date Attending Provider: Tonny Ross MD Discharge Diagnosis right TKA Onset 04/12/2021 Subjective Information Adrien continues to have some Query Text:As Reported By Patient/ pain and especially at night Family but he can deal with it. States that he is doing nearly everything he used to do and wants to do. Has a difficult time putting his right sock on . Self Report Pain Assessment Right Knee(s) Reported Pain Level 3 Pain Description Aching,Tightness,Tingling Pain Frequency Acute,Continuous Lowest Pain Intensity 3 Greatest Pain Intensity 5 Pain Score Pain Score 3: Self Report Interventions Used Interventions Used By Clinicians Exercise Pain Relief Interventions Used By Exercise,Ice Patient Lower Extremity Range of Motion Knee Range of Motion Left Knee Flexion Range of Motion - Active 115 Knee Extension Range of Motion - Active -4 Query Text: Knee Range of Motion Limitations Edema,Pain Lower Extremity Muscle Strength Testing Knee Strength Right Knee Flexion Strength 5 Normal Knee Extension Strength 5 Normal Extremity Circumference Assessment Circumference Assessment Location Left Body Part Knee Site Descriptor ([place]) suprapatellar Circumference (cm) 44 Noninvolved Side Circumference (cm) 41 Balance Assessment 5 Time Sit to Stand Time in Seconds 13.92 Gait Assessment Gait Pattern Assessment Other Gait Observations early heel off due to limited right knee extension in terminal stance phase PT Clinical Summary Adrien is a 71 yo male presenting to outpatient physical therapy 6 weeks s/p right TKA. Adrien is demonstrating normal strength of the right LE, good gait pattern with early heel off likely due to lack of terminal knee extension. He has 115deg knee flexion and lacking 4 deg extension. There continues to be a bi
== END 2021-05-25 09:34 | disposition home or self-care (01) ==
LOC: ANHPT 09:00
PROVIDERS: PCP Internal Medicine; Visit Provider Orthopaedic Surgery
DX: Z47.1 Aftercare following joint replacement surgery (principal); Z96.651 Presence of right artificial knee joint
CPT/HCPCS: 97110; 97112; 97140; 97162

== ENCOUNTER 2021-10-31 20:31 | Emergency (ER) | payer MEDICARE, SELFPAY ==
[2021-10-31 21:05] VITALS: BP 133/66; PULSE 100; RESP 18; TEMP 36.5; O2SAT 95
--- NOTE | 2021-10-31 22:53 | ED.WOUNDLAC ---
HPI - Wound/Laceration General Chief Complaint: Wound/Laceration Stated Complaint: bleeding from back surgery site Time Seen by Provider: 10/31/21 21:48 Source: patient Mode of arrival: ambulatory Limitations: no limitations History of Present Illness HPI narrative: Patient is a 71-year-old male who presents the ED with report of bleeding from his lumbar spinal fusion incision site. Patient reports he had a lumbar spinal fusion last done by Dr. Teresa at [facility]. He has been doing well since the surgery and has had no issues with the incision. Tonight around 8 PM, he was having a bowel movement and straining as he has been slightly constipated with the pain medication. He noticed bleeding from the incision afterwards, which he states was draining down his legs. He states he bled through a few gauze pads at which point he decided to come to the ED. He states he did not feel like driving to [facility] and did not try calling his surgeon. He does report having chills over the last couple days, but denies any documented fever. He has been using a thermometer at home. He denies any worsening back pain today. Denies any nausea, vomiting. No numbness/tingling, weakness. Related Data Home Medications Medication Instructions Recorded Confirmed amlodipine 10 mg tablet 10 mg PO QAM 04/05/19 10/08/21 metoprolol tartrate 25 mg tablet 25 mg PO QAM 04/05/19 10/08/21 atorvastatin 40 mg tablet 40 mg PO HS 04/10/20 10/08/21 cholecalciferol (vitamin D3) 125 125 mcg PO DAILY 03/19/21 10/08/21 mcg (5,000 unit) capsule coenzyme Q10 100 mg capsule 200 mg PO DAILY 03/19/21 10/08/21 (CoQ-10) hydrochlorothiazide 25 mg tablet 25 mg QAM 03/19/21 10/08/21 lisinopril 20 mg tablet 20 mg PO QAM 03/19/21 10/08/21 multivitamin 1 tablet PO DAILY 03/19/21 10/08/21 tumeric 100 mg-angi 150 mg-olive 1 cap PO DAILY 03/19/21 10/08/21 50 mg-oreg 150 mg-caprylate capsule Allergies Allergy/AdvReac Type Severity Reaction Status Date / Time No Known Allergies Allergy Verified 10/08/21 08:12 Review of Systems Review of Systems: CONSTITUTIONAL: Reports chills. Denies fever. CARDIOVASCULAR: Denies chest pain. RESPIRATORY: Denies cough or dyspnea. GASTROINTESTINAL: Reports constipation. Denies abdominal pain, nausea, vomiting, or diarrhea. SKIN: Reports bleeding from incision site. MUSCULOSKELETAL: Denies worsening back pain. NEUROLOGIC: Denies numbness, tingling, or weakness. All systems reviewed & are unremarkable except as noted in HPI and below PMFSH Past Medical History Medical History Abdominal aortic aneurysm (~06/10/16) repaired 2018, thoracic aaa - watching CAD (coronary artery disease) Essential (primary) hypertension History of angina Lumbar degenerative disc disease Other fatigue Pure hypercholesterolemia, unspecified Rotator cuff tear (~03/09/18) Rt Rotator cuff tear, left (~04/11/14) Rotator cuff tear, right (~05/09/17) Spinal stenosis of lumbar region with neurogenic claudication Tear of right biceps muscle (~02/01/14) Testicular hypofunction Thoracic aortic aneurysm without rupture 4.2cm in 2017 Surgical History Surgical History History of AAA (abdominal aortic aneurysm) repair History of elbow surgery (~1998) History of lumbar fusion (~1998) Family History Family History Sibling Hypertension Patient's brother is in good health Family history of malignant neoplasm of breast in first degree relative Family history of malignant neoplasm of breast Mother Diabetes mellitus, Onset Age: 83 Family history of cardiovascular disease, Onset Age: 83 Father Malignant neoplasm of prostate Patient's father is in good health Social History Social History Smoking packs per day: 1
--- NOTE | 2021-11-01 01:38 | PC.NURSE ---
0110- RN cleased wound to lumbar spine with saline wound spray and gauze, ABD applied and secured with tape. RN did education with on how to apply the dressing and how often to change it. went over instructions on showering and when to change is drainage soaking thru dressing. and pt verbalized instructions. pt given enough supplies do change dressing at home for the next day until they are able to get to the store to get more supplies.
== END 2021-11-01 01:20 | disposition home or self-care (01) ==
PROVIDERS: Emergency Provider Emergency Medicine; PCP Internal Medicine
DX: L76.22 Postprocedural hemorrhage of skin and subcutaneous tissue following other procedure (principal); I25.10 Atherosclerotic heart disease of native coronary artery without angina pectoris; I10 Essential (primary) hypertension; E78.00 Pure hypercholesterolemia, unspecified; Z87.891 Personal history of nicotine dependence; Y84.8 Other medical procedures as the cause of abnormal reaction of the patient, or of later complication, without mention of misadventure at the time of the procedure
CPT/HCPCS: 99282

== ENCOUNTER 2022-02-21 13:44 | Outpatient (CLI) | payer MEDICARE, SELFPAY ==
[2022-02-21 14:49] LABS: Influenza Control Positive
[2022-02-21 15:16] LABS: SARS-CoV-2 RNA PCR Positive
== END 2022-02-21 13:45 | disposition home or self-care (01) ==
LOC: ANHLAB 13:46
PROVIDERS: PCP Internal Medicine; Visit Provider Physician Assistant
DX: J02.9 Acute pharyngitis, unspecified (principal); U07.1 COVID-19
CPT/HCPCS: 87070; 87804; 87880; U0003; U0005

== ENCOUNTER 2022-05-23 01:59 | Day surgery (SDC) | payer MEDICARE, SELFPAY ==
[2022-05-06 14:56] VITALS: BMI 30.7
--- NOTE | 2022-05-22 11:15 | PM.HPGS ---
History of Present Illness History of Present Illness Consent: Risks, benefits, and alternatives have been discussed and questions answered. Patient agrees to proceed with procedure. Chief complaint: neoplasm screening Narrative: Adrien Root is a 72 year old male who was referred for colon cancer screening. His last colonoscopy was 10 years ago. Review of Systems Review of Systems: All systems reviewed & are unremarkable except as noted in HPI and below PMFSH Past Medical History Medical History Abdominal aortic aneurysm (~06/10/16) repaired 2018, thoracic aaa - watching CAD (coronary artery disease) Essential (primary) hypertension History of angina Lumbar degenerative disc disease Other fatigue Pure hypercholesterolemia, unspecified Rotator cuff tear (~03/09/18) Rt Rotator cuff tear, left (~04/11/14) Rotator cuff tear, right (~05/09/17) Spinal stenosis of lumbar region with neurogenic claudication Tear of right biceps muscle (~02/01/14) Testicular hypofunction Thoracic aortic aneurysm without rupture 4.2cm in 2017 Surgical History Surgical History History of AAA (abdominal aortic aneurysm) repair History of elbow surgery (~1998) History of lumbar fusion (~1998) Family History Family History Sibling Hypertension Patient's brother is in good health Family history of malignant neoplasm of breast in first degree relative Family history of malignant neoplasm of breast Mother Diabetes mellitus, Onset Age: 83 Family history of cardiovascular disease, Onset Age: 83 Father Malignant neoplasm of prostate Patient's father is in good health Social History Social History Smoking packs per day: 1 Smoking cigarettes per day: 20.0 Years smoked: 25 Smoking pack-years: 25.00 Smoking status: Former smoker Tobacco type: cigarettes Second hand tobacco smoke exposure: No Smoking end date: 04/28/97 Additional smoking assessment comments: quit in 1997 Alcohol intake: never Alcohol use details: STATES SOCIAL DRINKER - QUIT MANY YEARS AGO Substance use: never Substance use type: does not use Lack of Transportation: No Lack of Food: Sometimes True Current Housing: I Have Housing Concerned About Future Housing: No Difficulty Paying Gas/Electric Bills: Decline to Answer Difficulty Paying for Meds: No Currently Unemployed: No Education: High School Diploma/GED Difficulty w/ Childcare or Family Care: No Living arrangements: with family Additional living arrangements comments: Spiritual care concerns: No Meds Home Medications and Allergies Home Medications Medication Instructions Recorded Confirmed Type amlodipine 10 mg tablet 10 mg PO QAM 04/05/19 05/23/22 History metoprolol tartrate 25 mg tablet 25 mg PO QA 04/05/19 05/23/22 History atorvastatin 40 mg tablet 40 mg PO HS 04/10/20 05/23/22 History cholecalciferol (vitamin D3) 125 125 mcg PO DAILY 03/19/21 05/23/22 History mcg (5,000 unit) capsule coenzyme Q10 100 mg capsule 200 mg PO DAILY 03/19/21 05/23/22 History (CoQ-10) hydrochlorothiazide 25 mg tablet 25 mg QA 03/19/21 05/23/22 History lisinopril 20 mg tablet 20 mg PO QAM 03/19/21 05/23/22 History multivitamin 1 tablet PO DAILY 03/19/21 05/23/22 History aspirin 81 mg capsule 81 mg PO BID #0 caps 04/12/21 05/23/22 Rx meloxicam 15 mg tablet 15 mg PO DAILY #90 tabs 10/08/21 05/23/22 Rx Allergies Allergy/AdvReac Type Severity Reaction Status Date / Time No Known Allergies Allergy Verified 05/23/22 06:55 Exam Const: General: alert Orientation/consciousness: patient oriented x3 Resp: Auscultation: clear to auscultation bilaterally Cardio: Rate: regular rate Rhythm: regular rhythm GI: GI Palp: Ye
[2022-05-23 06:45] VITALS: BP 132/82; PULSE 87; RESP 18; TEMP 36.4; O2SAT 96; BMI 30.4
[2022-05-23] MEDS: LACTATED RINGERS 1,000 ML 150 ML IV CONT (07:08)
--- NOTE | 2022-05-23 07:36 | WPDANESEPPF ---
Anes - Initial Pre Proc Eval Procedure: Operation Date: 05/23/22 08:00 Proposed Procedures p Screening Colonoscopy - Aron Mauricio MD Date/Time: 05/23/22 07:36 Surgeon: Aron Mauricio MD Pre Op Diagnosis: neoplasm screening Patient Data Age: 72 Gender: M Height: 1.8 m Weight: 99.2 kg Last Vital Signs Temp 97.6 F 05/23/22 06:45 Pulse 87 05/23/22 06:45 Resp 18 05/23/22 06:45 BP 132/82 05/23/22 06:45 Pulse Ox 96 05/23/22 06:45 O2 Del Method Room Air 05/23/22 06:45 Allergies Allergy/AdvReac Type Severity Reaction Status Date / Time No Known Allergies Allergy Verified 05/23/22 06:55 Home Medications Medication Instructions Recorded Confirmed Type amlodipine 10 mg tablet 10 mg PO QAM 04/05/19 05/23/22 History metoprolol tartrate 25 mg tablet 25 mg PO QAM 04/05/19 05/23/22 History atorvastatin 40 mg tablet 40 mg PO HS 04/10/20 05/23/22 History cholecalciferol (vitamin D3) 125 125 mcg PO DAILY 03/19/21 05/23/22 History mcg (5,000 unit) capsule coenzyme Q10 100 mg capsule 200 mg PO DAILY 03/19/21 05/23/22 History (CoQ-10) hydrochlorothiazide 25 mg tablet 25 mg QAM 03/19/21 05/23/22 History lisinopril 20 mg tablet 20 mg PO QAM 03/19/21 05/23/22 History multivitamin 1 tablet PO DAILY 03/19/21 05/23/22 History aspirin 81 mg capsule 81 mg PO BID #0 caps 04/12/21 05/23/22 Rx meloxicam 15 mg tablet 15 mg PO DAILY #90 tabs 10/08/21 05/23/22 Rx Patient hx anesthesia problems: none Family hx anesthesia problems: none Results Review: All pre-operative results and documents have been reviewed as part of the pre-operative evaluation. [facility] Past Medical History Medical History Abdominal aortic aneurysm (~06/10/16) repaired 2018, thoracic aaa - watching CAD (coronary artery disease) Essential (primary) hypertension History of angina Lumbar degenerative disc disease Other fatigue Pure hypercholesterolemia, unspecified Rotator cuff tear (~03/09/18) Rt Rotator cuff tear, left (~04/11/14) Rotator cuff tear, right (~05/09/17) Spinal stenosis of lumbar region with neurogenic claudication Tear of right biceps muscle (~02/01/14) Testicular hypofunction Thoracic aortic aneurysm without rupture 4.2cm in 2017 Surgical History Surgical History History of AAA (abdominal aortic aneurysm) repair History of elbow surgery (~1998) History of lumbar fusion (~1998) Family History Family History Sibling Hypertension Patient's brother is in good health Family history of malignant neoplasm of breast in first degree relative Family history of malignant neoplasm of breast Mother Diabetes mellitus, Onset Age: 83 Family history of cardiovascular disease, Onset Age: 83 Father Malignant neoplasm of prostate Patient's father is in good health Social History Social History Smoking packs per day: 1 Smoking cigarettes per day: 20.0 Years smoked: 25 Smoking pack-years: 25.00 Smoking status: Former smoker Tobacco type: cigarettes Second hand tobacco smoke exposure: No Smoking end date: 04/28/97 Additional smoking assessment comments: quit in 1997 Alcohol intake: never Alcohol use details: STATES SOCIAL DRINKER - QUIT MANY YEARS AGO Substance use: never Substance use type: does not use Lack of Transportation: No Lack of Food: Sometimes True Current Housing: I Have Housing Concerned About Future Housing: No Difficulty Paying Gas/Electric Bills: Decline to Answer Difficulty Paying for Meds: No Currently Unemployed: No Education: High School Diploma/GED Difficulty w/ Childcare or Family Care: No Living arrangements: with family Additional living arrangements comments: Spiritual care concerns: No
[2022-05-23 08:21] VITALS: BP 100/60; PULSE 85; RESP 20; O2SAT 97
[2022-05-23 08:31] VITALS: BP 107/65; PULSE 80; RESP 19; O2SAT 96
[2022-05-23 08:41] VITALS: BP 110/65; PULSE 77; RESP 16; O2SAT 99
== END 2022-05-23 08:54 | disposition home or self-care (01) ==
PROVIDERS: PCP Internal Medicine; Visit Provider Internal Medicine Gastroenterology
PROC: 0DJD8ZZ Inspection of Lower Intestinal Tract, Via Natural or Artificial Opening Endoscopic (ICD-10-PCS; CPT 45378; principal; 2022-05-23 08:00)
DX: Z12.11 Encounter for screening for malignant neoplasm of colon (principal); K57.30 Diverticulosis of large intestine without perforation or abscess without bleeding; K62.89 Other specified diseases of anus and rectum; I25.10 Atherosclerotic heart disease of native coronary artery without angina pectoris; I10 Essential (primary) hypertension; E78.00 Pure hypercholesterolemia, unspecified; Z79.82 Long term (current) use of aspirin; Z98.1 Arthrodesis status; Z87.891 Personal history of nicotine dependence
CPT/HCPCS: 45380; 88305; J2704; J7120

== ENCOUNTER 2022-06-14 07:54 | Outpatient (CLI) | payer MEDICARE, SELFPAY ==
--- NOTE | 2022-06-14 08:11 | ECG_ITS ---
Measurements Intervals [place] Rate: 77 P: 20 [place]: 200 QRS: -17 QRSD: 91 T: 5 QT: 347 QTc: 394 Interpretive Statements SINUS RHYTHM PREVIOUS iNFERIOR MYOCARDIAL INFARCTION ABNORMAL ECG COMPARED TO ECG 01/26/2021 10:24:37 NO SIGNIFICANT CHANGES Electronically Signed On 06-14-2022 15:25:24 [employer] by Chevy Castellanos M.D.
[2022-06-14 08:43] LABS: Anion Gap 6 mmol/L (8-16); Blood Urea Nitrogen 22 mg/dL (9-20); Calcium 8.4 mg/dL (8.4-10.2); Carbon Dioxide 27 mmol/L (22-30); Chloride 101 mmol/L (98-107); Estimated Glomerular Filt Rate > 60; Glucose 100 mg/dL (65-110); Potassium 4.1 mmol/L (3.4-5.0); Sodium 134 mmol/L (137-145)
== END 2022-06-14 07:55 | disposition home or self-care (01) ==
LOC: ANHSURGERY 07:57
PROVIDERS: Anesthesiology; PCP Internal Medicine; Visit Provider Surgery
DX: I10 Essential (primary) hypertension (principal); Z01.818 Encounter for other preprocedural examination; R94.31 Abnormal electrocardiogram [ECG] [EKG]
CPT/HCPCS: 36415; 80048; 93005

== ENCOUNTER 2022-06-19 02:14 | Day surgery (SDC) | payer MEDICARE, SELFPAY ==
--- NOTE | 2022-06-13 11:49 | PC.NURSE ---
Report to the Outpatient Waiting Room, entrance under the green pavilion located off [facility], at time __0730 on date __06/19/22 . Planned Procedure Time: . Time changes happen often and if your time is changed the preop area will call you the afternoon before. - You and your visitor will be asked to self-screen and do not enter if you have any COVID symptoms. - Only one visitor is requested with a max of two and NO children visitors are allowed at this time. - The patient visitor may be requested to leave or wait in car when not with patient due to distancing restrictions. - A mask is optional within the hospital at this time. Patients may have clear liquids (water, carbonated beverages, clear teas, apple juice) until 3 hours prior to surgery with a maximum of 20 ounces. - No food from midnight until time of surgery - Infants may have breast milk until 4 hours before surgery, formula 6 hours prior to surgery. - Children will be allowed to drink immediately following surgery. If applicable, please bring a bottle or sippy cup to assist with drinking. Juice, water, soda, and popsicles are readily available. For infants on formula, please bring formula the day of surgery. Pacifiers are allowed. Take the following medications with a SIP of water the morning of surgery: __AMLODIPINE,METOPROLOL AND PREGABALIN DO NOT STOP ANY OF YOUR OTHER PRESCRIPTION MEDICATIONS PRIOR TO SURGERY ?EXCEPT THE FOLLOWING Medications to discontinue per physician ___ALL VITAMINS/SUPPLEMENTS 3 DAYS PRE OP. Last dose 06/15/22 Please no make-up, nail mongolian, hairspray, perfume, deodorant, or body powder the day of surgery. No jewelry (including any body piercings) or valuables the day of surgery, leave them at home. Please take a shower or bath the night before, or the morning of, surgery with an antibacterial soap. Wear comfortable, loose fitting clothing. Children are encouraged to wear pajamas. - Jewelry must be removed prior to entering the operating room. Rings and piercings that are not removed may be cut off. - The hospital will not accept responsibility for valuables. - Please leave all valuables, including medications, at home the day of surgery. If you are going home after surgery, a licensed racing car driver must drive you home. - NO public transportation without another adult if you receive anesthesia. - We recommend that an adult stay with you for 24 hours following discharge. - We also recommend that you do not drive, make important decision, drink alcoholic beverages, or take any drugs that were not prescribed by your health care provider for at least 24 hours after your discharge time. Follow any additional instructions given to you from your surgeon. If you or anyone in your household have experienced Covid symptoms in the past week, please notify your surgeon or the nurse liaison at the phone number below for possible testing. Telephone instructions given to ___patient and asked if any additional questions and then verbalized understanding. Patient advised to call surgeon office or pre surgery nurse liaison [phone] if any additional questions.
[2022-06-13 12:11] VITALS: BMI 29.9
--- NOTE | 2022-06-19 07:23 | WPDHPUPDATE1 ---
History and Physical Update Update Date/Time: 06/19/22 07:23 History and Physical has been reviewed, including an updated exam of the patient. There are NO changes in the patient's condition. Risks, benefits, and alternatives have been discussed and questions answered. Patient agrees to proceed with procedure.
[2022-06-19 07:39] VITALS: BP 128/68; PULSE 86; RESP 16; TEMP 37; O2SAT 100
[2022-06-19] MEDS: ACETAMINOPHEN 500 MG TABLET 1000 MG PO (08:05)
[2022-06-19] MEDS: KETOROLAC 15 MG/ML VIAL (*BKC) IV PUSH (08:16)
--- NOTE | 2022-06-19 08:26 | SUR.PREOP ---
pt informed delay in procedure.
--- NOTE | 2022-06-19 08:34 | WPDANESEPPF ---
Anes - Initial Pre Proc Eval Procedure: Operation Date: 06/19/22 09:30 Proposed Procedures p Proctosigmoidoscopy, Rectal Exam Under Anesthesia, Transanal Excision of Rectal Polyp - Nikolai Shaikh MD Date/Time: 06/19/22 08:34 Surgeon: Nikolai Shaikh MD Pre Op Diagnosis: rectal polyps Patient Data Age: 72 Gender: M Height: 1.8 m Weight: 98 kg Last Vital Signs Temp 37.0 C 06/19/22 07:39 Pulse 86 06/19/22 07:39 Resp 16 06/19/22 07:39 BP 128/68 06/19/22 07:39 Pulse Ox 100 06/19/22 07:39 O2 Del Method Room Air 06/19/22 07:39 Allergies Allergy/AdvReac Type Severity Reaction Status Date / Time No Known Allergies Allergy Verified 06/19/22 07:57 Home Medications Medication Instructions Recorded Confirmed Type amlodipine 10 mg tablet 10 mg PO QAM 04/05/19 06/19/22 History metoprolol tartrate 25 mg tablet 25 mg PO QAM 04/05/19 06/19/22 History atorvastatin 40 mg tablet 40 mg PO HS 04/10/20 06/19/22 History cholecalciferol (vitamin D3) 125 125 mcg PO DAILY 03/19/21 06/19/22 History mcg (5,000 unit) capsule coenzyme Q10 100 mg capsule 200 mg PO DAILY 03/19/21 06/19/22 History (CoQ-10) hydrochlorothiazide 25 mg tablet 25 mg PO QAM 03/19/21 06/19/22 History lisinopril 20 mg tablet 20 mg PO QAM 03/19/21 06/19/22 History multivitamin 1 tablet PO DAILY 03/19/21 06/19/22 History aspirin 81 mg capsule 81 mg PO BID #0 caps 04/12/21 06/19/22 Rx meloxicam 15 mg tablet 7.5 mg PO DAILY PRN Pain 05/30/22 06/19/22 History ascorbic acid (vitamin C) 1,000 mg 1 g PO DAILY 06/13/22 06/19/22 History tablet pregabalin 100 mg capsule 100 mg PO BID 06/13/22 06/19/22 History Patient hx anesthesia problems: none Family hx anesthesia problems: none Results Review: All pre-operative results and documents have been reviewed as part of the pre-operative evaluation. [facility] Past Medical History Medical History Abdominal aortic aneurysm (~06/10/16) repaired 2018, thoracic aaa - watching CAD (coronary artery disease) Essential (primary) hypertension History of angina Lumbar degenerative disc disease Other fatigue Pure hypercholesterolemia, unspecified Rotator cuff tear (~03/09/18) Rt Rotator cuff tear, left (~04/11/14) Rotator cuff tear, right (~05/09/17) Spinal stenosis of lumbar region with neurogenic claudication Tear of right biceps muscle (~02/01/14) Testicular hypofunction Thoracic aortic aneurysm without rupture 4.2cm in 2017 Surgical History Surgical History History of AAA (abdominal aortic aneurysm) repair History of elbow surgery (~1998) History of lumbar fusion (~1998) Status post arthroscopy of right knee Family History Family History Sibling Hypertension Patient's brother is in good health Family history of malignant neoplasm of breast in first degree relative Family history of malignant neoplasm of breast Diabetes mellitus Mother Diabetes mellitus, Onset Age: 83 Family history of cardiovascular disease, Onset Age: 83 Father Malignant neoplasm of prostate Patient's father is in good health Social History Social History Smoking packs per day: 1 Smoking cigarettes per day: 20.0 Years smoked: 25 Smoking pack-years: 25.00 Smoking status: Former smoker Tobacco type: cigarettes Second hand tobacco smoke exposure: No Smoking end date: 04/28/97 Additional smoking assessment comments: quit in 1997 Alcohol intake: current Alcohol use details: [place] SOCIAL DRINKER - QUIT MANY YEARS AGO Substance use: never Substance use type: does not use Lack of Transportation: No Lack of Food: Sometimes True Current Housing: I Have Housing Concerned About Future Housing: No Difficulty Paying Gas/Electric Bills: Decline to Ans
[2022-06-19] MEDS: LACTATED RINGERS 1,000 ML 30 ML IV CONT ×2 (08:36→11:07)
[2022-06-19] MEDS: ceFAZolin 2 GM/D5W 50 ML 2 GM/50 ML BAG IVPB (10:18)
[2022-06-19] MEDS: BUPivacaine HCL 0.5% 10 ML AMP 30 ML INFILTRATE (10:49)
[2022-06-19 11:10] VITALS: BP 149/61; PULSE 99; RESP 15; TEMP 36.4; O2SAT 99
--- NOTE | 2022-06-19 11:24 | W.PM.PROC2 ---
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 It is very bothersome to him. He had a colonoscopy and the lesion was noted. It was described as 2 cm and was located at 10 cm from the anal verge. Biopsy showed benign squamous epithelium and bacteria. I was able to feel the lesion with digital rectal exam. Patient is taken to surgery now for transanal excision of this rectal polyp. Findings Proctosigmoidoscopy to 15 cm was negative. Polyp was quite large and easily protruded out of the rectum. It was on somewhat of a stalk and the distal aspect of the polyp did appear to have squamous epithelium. It seemed to emanate from just proximal to the dentate line. This is roughly the area where internal hemorrhoids would originate. Description of Procedure Patient was taken to surgery and induced into general anesthesia. He was then turned in the prone davon-knife position. The buttocks were taped apart. Prep and drape was carried out. I placed a Hill-Asif anoscope in the rectum. Initially I was not able to see the polyp. I then did digital rectal exam and was able to bring the polyp out of the rectum. We then replaced the Hill-Asif anoscope and the origin of the polyp in the left posterior quadrant from the distal rectal mucosa just proximal to the dentate line was displayed. I infiltrated local anesthetic throughout the area of the origin of the polyp. I then removed the polyp using the cautery. The resultant mucosal wound was then closed with running locking 3-0 chromic. The closure was hemostatic. I looked again in the anal canal with the Hill-Asif anoscope. No additional anorectal pathology was noted. I then used the proctoscope to 15 cm and saw no polyps or other lesions to that distance either. We then dressed the rectum with Xeroform gauze fluffs and tape. Patient was returned to a supine position, awakened and taken to recovery in good condition. Sponge and needle counts were correct x2. Estimated Blood Loss -5 Drains No Packing No Pathology Yes ( Rectal polyp) Complications No immediate complications Condition Stable Disposition PACU [facility] Billing Surgery - Charge Forward: Surgery Billing ( proctosigmoidoscopy, transanal excision of rectal polyp)
[2022-06-19 11:25] VITALS: BP 131/73; PULSE 80; RESP 16; O2SAT 100
[2022-06-19 11:40] VITALS: BP 139/63; PULSE 82; RESP 16; O2SAT 98
[2022-06-19 11:59] VITALS: BP 136/58; PULSE 81
[2022-06-19 12:20] VITALS: BP 130/53; PULSE 81
== END 2022-06-19 12:28 | disposition home or self-care (01) ==
PROVIDERS: PCP Internal Medicine; Visit Provider Surgery
PROC: 0DJD8ZZ Inspection of Lower Intestinal Tract, Via Natural or Artificial Opening Endoscopic (ICD-10-PCS; CPT 45300; principal; 2022-06-19 09:30)
DX: K62.1 Rectal polyp (principal); K64.9 Unspecified hemorrhoids; I71.40 Abdominal aortic aneurysm, without rupture, unspecified; I25.10 Atherosclerotic heart disease of native coronary artery without angina pectoris; I10 Essential (primary) hypertension; E78.00 Pure hypercholesterolemia, unspecified; Z98.1 Arthrodesis status; Z87.891 Personal history of nicotine dependence; Z79.82 Long term (current) use of aspirin
CPT/HCPCS: 45300; 46922; 36415; 80048; 88305; 93005; A9270; J0330; J0690; J1100; J1885; J2405; J2704; J3010; J7120

== ENCOUNTER 2022-09-30 07:23 | Outpatient (CLI) | payer MEDICARE, SELFPAY ==
--- NOTE | ~2022-09-30 | CT_ITS ---
Clinical Indication: Ascending aortic aneurysm CT Angiogram of the Chest, Abdomen, and Pelvis with Contrast: Technique: Contiguous sections were acquired throughout the chest, abdomen, and pelvis prior to and f ollowing intravenous administration of 100 cc of Omnipaque 350. Dose reduction technique was used on this scan by utilizing automated exposure control and iterative reconstruction technique. The dose-l ength product (DLP) was 1676.26 mGy-cm. Findings: There is no evidence of any significant mediastinal, hilar or axillary lymphadenopathy. Ascending aor ta is upper limits of normal in size at 4 cm in diameter. No dissection. No aneurysm of the aortic ar ch or descending thoracic aorta. No pulmonary embolus seen. Coronary artery calcifications are presen t. There is no evidence of pleural or pericardial effusion. The lungs are clear. No pulmonary nodules or infiltrates are noted. Large left hepatic lobe cyst present. The spleen, pancreas, gallbladder, adrenals and kidneys are wit hin normal limits. No evidence of abdominal aortic aneurysm. No lymphadenopathy. No bowel obstruction or bowel wall thickening. There is no evidence to suggest acute appendicitis. Urinary bladder is unremarkable. Prostate gland and seminal vesicles are unremarkable. Impression: Ascending aorta measures 4 cm in diameter, upper limits of normal in size. No aneurysm of the descending thoracic or abdominal aorta. Reviewed, dictated and finalized at location . Impression: Ascending aorta measures 4 cm in diameter, upper limits of normal in size. No aneurysm of the descending thoracic or abdominal aorta.
[2022-09-30 07:57] LABS: Estimated Glomerular Filt Rate > 60
== END 2022-09-30 07:24 | disposition home or self-care (01) ==
PROVIDERS: PCP Internal Medicine; Visit Provider Internal Medicine Cardiovascular Disease
DX: I71.21 Aneurysm of the ascending aorta, without rupture (principal)
CPT/HCPCS: 71275; 74174; Q9967

== ENCOUNTER 2022-12-27 16:34 | Outpatient (CLI) | payer MEDICARE, SELFPAY ==
--- NOTE | ~2022-12-27 | US_ITS ---
EXAMINATION: US carotid duplex BI DATE: 12/27/2022 17:40 INDICATION: Dizziness and giddiness. TECHNIQUE: Grayscale, color Doppler, and pulsed Doppler images of the cervical carotid arteries were obtained. The degree of vessel stenosis is placed in one of the following categories: normal, <50%, 5 0-69%, >=70% but less than near-occlusion, near-occlusion, or total occlusion. Note that percent sten osis relative to normal distal artery lumen diameter is indirectly measured from velocity measurement s as described by Los, et al. Radiology 2003; 229:340-346. COMPARISON: None. FINDINGS: RIGHT: The right common carotid artery (CCA) peak systolic velocity (PSV) is 122 cm/s. The right internal ca rotid artery (ICA) PSV is 109 cm/s. The right ICA end-diastolic velocity (EDV) is 16 cm/s. The right ICA/CCA PSV ratio is 0.9. Grayscale and color Doppler images yield an estimate of <50% diameter reduc tion from plaque in the ICA. There is antegrade flow in the right vertebral artery. LEFT: The left CCA PSV is 126 cm/s. The left ICA PSV is 100 cm/s. The left ICA EDV is 18 cm/s. The left ICA /CCA PSV ratio is 0.8. Grayscale and color Doppler images yield an estimate of <50% diameter reductio n from plaque in the ICA. There is antegrade flow in the left vertebral artery. IMPRESSION: 1. <50% stenosis in the right internal carotid artery. 2. <50% stenosis in the left internal carotid artery. Reviewed, dictated and finalized at location E.
== END 2022-12-27 16:35 | disposition home or self-care (01) ==
PROVIDERS: PCP Internal Medicine; Visit Provider Internal Medicine
DX: R42 Dizziness and giddiness (principal); R55 Syncope and collapse; I65.23 Occlusion and stenosis of bilateral carotid arteries
CPT/HCPCS: 93880

== ENCOUNTER 2023-04-15 15:24 | Outpatient (CLI) | payer MEDICARE, SELFPAY ==
--- NOTE | ~2023-04-15 | XR_ITS ---
EXAMINATION: XR abdomen/kub 1V DATE: 04/15/2023 15:43 INDICATION: Abdominal distention. TECHNIQUE: A supine view of the abdomen on 2 radiographs was obtained. COMPARISON: CT abdomen and pelvis 09/30/2022 FINDINGS: There are no dilated loops of bowel. There is a large volume of stool in the colon. There a re changes of anterior and posterior fusion procedures in lumbar spine. There is a phlebolith in righ t pelvis. IMPRESSION: 1. Nonobstructive bowel gas pattern. Reviewed, dictated and finalized at location E. E REFINISHER
== END 2023-04-15 15:25 | disposition home or self-care (01) ==
PROVIDERS: PCP Internal Medicine; Visit Provider Internal Medicine Gastroenterology
DX: R14.0 Abdominal distension (gaseous) (principal)
CPT/HCPCS: 74018

== ENCOUNTER 2023-07-31 10:23 | Outpatient (CLI) | payer MEDICARE, SELFPAY ==
--- NOTE | 2023-07-31 | ECG_ITS ---
Measurements Intervals [place] Rate: 72 P: 25 [place]: 194 QRS: -20 QRSD: 101 T: 7 QT: 360 QTc: 396 Interpretive Statements SINUS RHYTHM INCOMPLETE RIGHT BUNDLE BRANCH BLOCK INFERIOR MYOCARDIAL INFARCTION , PROBABLY OLD [40+ ms Q WAVE AND/OR ST/T ABNORMALITY IN II/aVF] COMPARED TO ECG 06/14/2022 08:27:45 NO SIGNIFICANT CHANGES Electronically Signed On 07-31-2023 11:06:15 CDT by Sofia Ludwig M.D.
== END 2023-07-31 10:24 | disposition home or self-care (01) ==
PROVIDERS: PCP Physician Assistant
DX: Z01.810 Encounter for preprocedural cardiovascular examination (principal); I45.10 Unspecified right bundle-branch block
CPT/HCPCS: 93005

== ENCOUNTER 2023-12-22 14:21 | Outpatient (CLI) | payer MEDICARE, SELFPAY ==
--- NOTE | 2023-12-23 13:29 | WPDSIXMINUTE ---
Six Minute Walk Procedure Procedure Performed Pulmonary Stress Test (6 min walk) Six Minute Walk Six Minute Walk: This is a 6 minute walk test. The test was performed and interpreted in accordance with the 2014 ERS/ATS task force guidelines. Findings: The patient's resting room air oxygen saturation measured by pulse oximetry was 94% and heart rate was 73 bpm. Patient ambulated for 335 meters and oxygen saturation remained 93 to 95%. Heart rate at the end of the study was 97 bpm. The patient did not qualify for supplemental oxygen at rest or with ambulation. There are no prior studies for comparison.
--- NOTE | 2023-12-23 13:30 | WPDPFTINT ---
PFT Procedure Performed PFT Procedure Performed Spirometry with Pre/Post Bronchodilator Plethysmography (Lung Vol) Diffusing Cap (DLCO) Flow Vol Loop PFT Interpretation This is a pulmonary function test with pre and post-bronchodilator spirometry, plethysmography and diffusing capacity. The test was performed and results interpreted in accordance with the 2019 and 2005 ATS/ERS Task Force guidelines respectively using the Global Lung Function Initiative-2012 reference equations. Patient demonstrated good effort and cooperation. Reproducibility criteria were met. The quality of the pre bronchodilator spirometry maneuver was Grade A and post bronchodilator spirometry maneuver was Grade A. Findings: Spirometry: The contour the inspiratory and expiratory flow tracing are normal. The pre bronchodilator FVC is 4.72 L, 112% predicted. The pre bronchodilator FEV1 is 3.56 L, 113% predicted. The pre bronchodilator FEV1: FVC ratio 76%. The post bronchodilator FVC is 4.59 L, representing a 3% decrease. The post bronchodilator FEV1 is 3.50 L, representing a 2% decrease. The post bronchodilator FEV1: FVC ratio 76%. Plethysmography: The total lung capacity is 6.30 L, 87% predicted. The functional residual capacity is 2.20 L, 57% predicted. The residual volume is 1.46 L, 57% predicted. Diffusing capacity: The diffusing capacity unadjusted for hemoglobin and carboxyhemoglobin is 20.8, 81% predicted. The diffusing capacity adjusted for alveolar volume is 3.80, 101% predicted. Impression: The spirometry is normal without evidence of an obstructive abnormality. There is no significant improvement after inhaling a single dose of albuterol. The Total lung capacity is normal with a decreased functional residual capacity and residual volume. This is an abnormal but nonspecific lung volume pattern. The diffusing capacity is normal. There are no prior studies for comparison
== END 2023-12-22 14:22 | disposition home or self-care (01) ==
LOC: ANHPFT 14:24
PROVIDERS: PCP Internal Medicine; Visit Provider Physician Assistant
DX: R06.02 Shortness of breath (principal)
CPT/HCPCS: 94060; 94618; 94726; 94729

== ENCOUNTER 2024-06-18 05:01 | Day surgery (SDC) | payer MEDICARE, SELFPAY ==
[2024-06-02 15:10] VITALS: BMI 32.3
--- OUTSIDE RECORDS SUMMARY | 2024-06-18 05:05 | XMS_ITS | Clinical Summary ---
Author Organization [facility] [address] Address [address] [place] [address] Care Team Providers Care Behavioral Therapy Coordinator Name Role Phone Leon Weir MD Unavailable [phone] Carey Sosa MD Unavailable Mervin Handley DO Primary Care Provider [phone] Allergies No known active allergies Medications hydroCHLOROthiazid e (HYDRODIURIL) 25 mg tablet Take 1 tablet (25 mg total) by mouth daily 03/23/20 21 Active multivitamin capsule Take 1 capsule by mouth daily Active coenzyme Q10 100 mg capsule Take 2 capsules (200 mg total) by mouth nightly Active tamsulosin (FLOMAX) 0.4 mg extended release capsule TAKE 1 CAPSULE BY MOUTH EVERY DAY 30 capsule 06/24/19 23 Active Additional Information Patient not taking.Reported on 03/22/2024 aspirin (Adult Low Dose Aspirin) 81 mg enteric coated tablet Take 1 tablet (81 mg total) by mouth daily 08/01/19 23 Active turmeric root extract 500 mg capsule Take by mouth Active thiamine (VITAMIN B1) 100 mg tablet Take 1 tablet (100 mg total) by mouth daily 06/08/19 24 Active testosterone cypionate (DEPO-TESTOTERONE) 200 mg/mL injection Taking once weekly on sundays04/23/20 23 Active pregabalin (LYRICA) 150 mg capsule Take 1 capsule (150 mg total) by mouth 2 (two) times a day 07/02/19 24 Active BD PrecisionGlide 25 gauge x 1 needle as directed 07/28/19 24 Active BD Eclipse 25 gauge x 1 needle 07/28/19 24 Active BD Luer-Bee Syringe 3 mL 18 x 1 1/2 syringe as directed 07/28/19 24 Active lisinopriL (PRINIVIL,ZESTRIL) 20 mg tablet Take 1 tablet (20 mg total) by mouth daily 90 tablet 3 08/29/19 24 Active metoprolol XL (TOPROL-XL) 25 mg extended release tablet Take 1 tablet (25 mg total) by mouth daily 90 tablet 1 08/29/19 24 Active amLODIPine (NORVASC) 10 mg tablet TAKE 1 TABLET BY MOUTH EVERY DAY 90 tablet 1 11/10/19 24 Active HYDROcodone-acetam inophen (NORCO) 5-325 mg per tabletIndications: Pain Take 1-2 tablets every 6 hours as needed for pain 15 tablet 04/01/20 24 Active HYDROcodone-acetam inophen (NORCO) 5-325 mg per tabletIndications: Pain Take 1-2 tablets every 6 hours as needed for pain 15 tablet 04/01/20 24 Active albuterol HFA (PROVENTIL HFA,VENTOLIN HFA,PROAIR HFA) 90 mcg/actuation inhaler 1 - 2 PUFF INHALED EVERY 4 - 6 HOURS NEEDED FOR SHORTNESS OF BREATH OR WHEEZING 01/27/20 24 Active anastrozole (ARIMIDEX) 1 mg tablet TAKE 1 TABLET BY MOUTH ONCE WEEKLY 03/07/20 24 Active atorvastatin (LIPITOR) 40 mg tablet TAKE 1 TABLET BY MOUTH EVERY DAY 90 tablet 1 05/17/19 25 Active Active Problems Problem Noted Date Diagnosed Date Encounter for removal of internal fixation devic e 03/18/2024 Left arm pain 03/17/2024 No diagnosis on [place] I 05/06/2023 Other chronic pain 05/06/2023 Dizziness 02/03/2023 S/P left rotator cuff repair 09/03/2022 Assessment & Plan (10/22/2022 12:45 PM CDT): Overall patient has done well. He has excellent range of motion. Does have some tightness with flexion but no associated pain. Does have subtle biceps ptosis on the left. I recommended the patient transition to a home exercise program. He will follow up with me as directed. Nontraumatic complete tear of left rotator cuff 08/08/2022 Assessment & Plan (08/08/2022 11:21 AM CDT): MRI of the left shoulder was reviewed which shows the patient is status post rotator cuff repair with what appears to be partial articular sided tearing with areas of focal full-thickness tearing. There is no fatty infiltration of the supraspinatus infraspinatus or subscapularis. Subscapularis appears to be intact. There is fluid within the biceps tendon she and biceps tendinosis. There is atrophy of the supraspinatus tendon. Treatment options were discussed. He reports he did receive good pain relief following subacromial space injection. I recommended left shoulder arthroscopy, rotator cuff repair, biceps tenodesis, subacromial decompression and excision distal clavicle. The risks complications benefits alternatives of surgery including but not limited to incomplete healing of the rotator cuff repair, persistent pain decreased range of motion stiffness incomplete pain relief and the need for future surgery were all discussed. We discussed the need for activity modification including sling immobilization for 6 weeks post structured outpatient physical therapy. All questions were answered. A handout describing rotator cuff repair surgery was provided. 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 - Renew medications: Will try Lyrica 100 mg bid. May need to titrate pending outcome. Patient states he is wanting to try something different. -Explained he is only 6 weeks postop, if he has ongoing issues, with neuropathy, an EMG/NCS may be ordered at later date to assess for peripheral neuropathy and possible peripheral commercial marketing specialist referral. Patient verbalized understanding. - After 6 weeks, patient may resume NSAIDs. 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 Teresa in 6 weeks with Flexion/Extension Lumbar spine films. Assessment & Plan (11/02/2021 10:00 AM CDT): PLAN: - Continue activity restrictions as outlined prior to surgery. - Renew medications: Oxycodone 5 mg q 4 hr prn, Keflex 500 mg bid x 14 days for prophylaxis, Tessalon pearls for cough. -Discuss to send a picture next week via email to monitor incision line since they live 40 minutes away. Discussed when to return to the office for fever greater than 101.5, increased redness, drainage or tenderness, swelling of incision. WORK STATUS: - RETIRED FOLLOW UP APPT: With Amalia on 12/03/21 with AP/LAT Lumbar Xray at [address] Other spondylosis with radiculopathy, lumbar reg ion 09/17/2021 Overview (09/17/2021): Added automatically from request for surgery [id number] Hepatic cyst 08/02/2021 Assessment & Plan (08/06/2021 5:04 PM CDT): The etiology of the patient's liver cyst is most likely benign. He reports no red flag symptoms such as subjective fever, recurrence night sweats, or unexpected weight loss. As a result, underlying malignancy or infectious cause is unlikely. He has no family history of cystic liver kidney disease. Today we discussed with him that most liver cysts are benign and are treated conservatively unless patient has become symptomatic, such as recurring right upper quadrant abdominal pain or discomfort. If he were to develop such symptoms, percutaneous drainage, sclerosis, or laparoscopic cyst de denis could be considered. We recommended to continue to monitor the evolution of the cyst. His last imaging is from October 2020, so we will order a repeat CT abdomen with contrast. We will follow up with him pending the results. 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 Status post abdominal aortic aneurysm (AAA) repa ir 09/16/2016 Overview (09/20/2016): S/P AAA repair Obstructive sleep apnea syndrome 03/12/2016 Overview (08/08/2016): URIEL on CPAP Ascending aortic aneurysm ([facility]/HCC) 09/05/2015 Overview (08/08/2016): Ascending aortic aneurysm Paraseptal emphysema 09/05/2015 Overview (08/08/2016): Paraseptal emphysema Abdominal aortic aneurysm without rupture 2015 Overview (08/08/2016): AAA (abdominal aortic aneurysm) without rupture Aortic root dilatation ([facility]) 07/10/2015 Overview (08/08/2016): Aortic root dilatation Pulmonary function studies abnormal 07/10/2015 Overview (08/08/2016): Abnormal PFTs (pulmonary function tests) Coronary artery disease invo lving ely shoshone coronary artery of ely shoshone heart without angina pectoris 05/29/2015 Overview (08/08/2016): Coronary artery disease involving ely shoshone coronary artery of ely shoshone heart with angina pectoris with documented spasm Dyspnea on exertion 05/29/2015 Overview (08/08/2016): MAHMOOD (dyspnea on exertion) Tobacco dependence in remission 05/29/2015 Overview (08/08/2016): Tobacco abuse, in remission Gastroesophageal reflux disease 02/07/2015 Overview (08/08/2016): Gastroesophageal reflux disease, esophagitis presence not specified Mixed hyperlipidemia 12/27/2014 Overview (08/08/2016): Dyslipidemia Angina pectoris 12/27/2014 Overview (08/08/2016): Angina pectoris Abnormal electrocardiography 12/27/2014 Overview (08/08/2016): Abnormal ECG Benign hypertension 12/27/2014 Overview (08/08/2016): HTN (hypertension), benign History of tobacco use 12/27/2014 Overview (08/08/2016): History of tobacco abuse Encounters Date Type Department Care Team Description 05/18/2024 Telephone [facility] Medical [facility] Cardiology [address] [place] [address] Sussy Greer NP 04/14/2024 7:30 AM SALES ARCHITECT Office Visit [facility] Medical [facility] Hand Surgery [address] [place] [address] [address] [place] [address] Massiel Montoya NP Encounter for removal of internal fixation device (Primary Dx); Left arm pain 04/05/2024 11:45 AM SALES ARCHITECT Office Visit [facility] Hand Surgery [address] [place] [address] [address] [place] [address] Dima Terrell MD Left forearm pain (Primary Dx); Left elbow pain 04/01/2024 10:44 AM SALES ARCHITECT Anesthesia Event [facility] OR [address] [place] [address] Rip Anderson DO Boivin, James R., MD 04/01/2024 10:00 AM SALES ARCHITECT - 04/01/2024 11:00 AM SALES ARCHITECT Surgery [facility] OR [address] [place] [address] Dima Terrell MD LEFT ELBOW HARDWARE REMOVAL 04/01/2024 8:14 AM SALES ARCHITECT - 04/01/2024 2:03 PM SALES ARCHITECT Hospital Encounter [facility] Main OR [address] [place] [address] Dima Terrell MD Encounter for removal of internal fixation device [Z47.2] (Primary Dx) Discharge Disposition: Discharge to home or self care 03/29/2024 1:00 PM SALES ARCHITECT Pre-Admission Testing [facility] Pre Admit Testing [address] [place] [address] Pre-op testing 03/24/2024 Orders Only [facility] Pre Admit Testing [address] [place] [address] Matilda Gonzalez RN Pre-op testing (Primary Dx) from Last 3 Months Surgical History Surgery Date Site/Laterality Comments CARDIAC CATHETERIZATION 04/28/2014 - 04/27/2015 mild nonobstructive CAD; no intervention ROTATOR CUFF REPAIR 05/09/2017 Right ARTERIAL ANEURYSM REPAIR 06/10/2016 open AAA repair ELBOW FRACTURE SURGERY 04/28/1997 - 04/27/1998 Left HARDWARE REMOVAL 02/29/2020 Left left elbow TENDON REPAIR 02/01/2014 Right arm tendon ROTATOR CUFF REPAIR 04/28/2017 - 05/28/2017 Right Revision R rototor cuff repair for re-tear ROTATOR CUFF REPAIR 04/28/2013 - 04/27/2014 Left CERVICAL SPINE SURGERY 04/02/1999 Anterior cervical microcorpectomy of C5 & C6 (left hemicorpectomy plus R sided ACDS), fusion, C4-C7, Cages C4-5, C5-6, C6-7, allograft, bone matrix TONSILLECTOMY COLONOSCOPY FL FLUORO GUIDED LUMBAR PUNCTURE 08/28/2020 Right FL UPPER GI AIR CONTRAST W KUB 11/15/2020 Bilateral FL UPPER GI AIR CONTRAST W KUB 12/20/2020 Bilateral FRACTURE SURGERY 04/28/1998 - 04/27/1999 Lt elbow and forearm LASIK 04/28/2008 - 04/27/2009 ABDOMINAL SURGERY 04/28/2014 - 04/27/2015 FL UPPER GI AIR CONTRAST W KUB 03/07/2021 Bilateral REPLACEMENT TOTAL KNEE 04/12/2021 Right FL UPPER GI AIR CONTRAST W KUB 06/12/2021 Bilateral JOINT REPLACEMENT Right knee replacement SPINE SURGERY 10/25/2021 S/P L4-5 Hardware Removal, L3-S1 Posterior Spinal Fusion with Revision, L5-S1 TLIF (Brii) FLUORO GUIDED ASPIRATION OR INJECTION INTERMEDIATE JOINT RIGHT 07/09/2023 Right KNEE SURGERY 04/28/2023 - 04/27/2024 Right ELBOW SURGERY 04/01/2024 Left hardware removal Medical History Medical History Date Comments AAA (abdominal aortic aneurysm) (HCC) Hypertension Arthritis Hypercholesteremia Sleep apnea wears cpap Coronary-myocardial bridge URIEL (obstructive sleep apnea) PONV (postoperative nausea and vomiting) w/ ether following tonsillectomy Lumbar radiculopathy Aneurysm (CMS/HCC) (HCC) Prostate disorder Descending aortic aneurysm (CMS/HCC) (HCC) Monitoring 4.1 size Family History Medical History Relation Name Comments Cancer Brother 1 Angel Diabetes Brother 1 Angel Hypertension Brother 1 Angel Prostate cancer Brother 1 Angel Cancer Brother 2 Chevy Cancer Father Angel Prostate cancer Father Angel Arthritis Mother Anya Diabetes Mother Anya Heart disease Mother Anya Heart disease; Hypertension Mother Anya Hypertension; Obesity Mother Anya Stroke Mother Anya Breast cancer Sister 1 Edith Cancer Sister 1 Edith Hypertension Sister 1 Edith Breast cancer Sister 2 Francoise Cancer Sister 2 Francoise Relation Name Status Comments Brother 1 Angel Alive Brother 2 Chevy Father Angel (Age 77) Mother Anya (Age 83) Sister 1 Edith Alive Sister 2 Francoise Alive Social History Tobacco Use Types Packs/Day Years Used Date Smoking Tobacco: Former Cigarettes 1 30.1 0 12/30/1967 - 02/17/1998 Smokeless Tobacco: Never Tobacco Cessation:Counseling Given: Not Answered Alcohol Use Standard Drinks/Week Comments No 0 (1 standard drink = 0.6 oz pur e alcohol) AUDIT-C Answer Date Recorded Q1: How often do you have a drink containing alc ohol? Monthly or less 03/22/2024 Q2: How many drinks containi ng alcohol do you have on a typical day when you are drinking? 1 or 2 03/22/2024 Q3: How often do you have si x or more drinks on one occasion? Never 03/22/2024 PHQ-2 Answer Date Recorded PHQ-2 Total Score (If total score is 3 or more points, staff should administer the PHQ-9) 1 01/30/2021 Personal Safety Answer Date Recorded Have you ever been in or are you currently in a harmful physical or emotional relationship or is someone making you feel afraid or unsafe? Denies 04/01/2024 Sex and Gender Information Value Date Recorded Sex Assigned at Not on file Legal Sex Male 3:48 AM SALES ARCHITECT Gender Identity Male 08/22/2021 10:36 AM CDT Sexual Orientation Straight 01/29/2021 8: 39 PM CDT Occupation Industry Job Start Date Job End Date Semi retired [employer] Not on file Not on file Not on file Obstetrics History Last Filed Vital Signs Vital Sign Reading Time Taken Comments Blood Pressure 120/70 04/01/2024 1:30 PM SALES ARCHITECT Pulse 63 04/01/2024 1:30 PM SALES ARCHITECT Temperature 36.3 C (97.4 F) 04/01/2024 1:00 PM SALES ARCHITECT Respiratory Rate 18 04/01/2024 1:30 PM SALES ARCHITECT Oxygen Saturation 91% 04/01/2024 1:30 PM SALES ARCHITECT Inhaled Oxygen Concentration - - Weight 105 kg (231 lb 6.4 oz) 03/29/2024 12:44 P M SALES ARCHITECT Height 180.3 cm (5' 11 ) 03/29/2024 12:44 PM SALES ARCHITECT Body Mass Index 32.27 03/29/2024 12:44 PM SALES ARCHITECT Plan of Treatment Health Maintenance Due Date Last Done Comments Colon Cancer Screening-Colonoscopy 1950 Hepatitis C Screening 1950 Prostate Cancer Screening-PSA 1950 DTaP/Tdap/Td Vaccine (1 - Tdap) 01/09/1960 Hepatitis B Screening 1967 Well Visit 65+ 2014 Depression Screening 01/30/2022 01/30/2021, 01/31/20 21 Covid-19 Vaccine ( - 2023-2 5 season) 2023 08/25/2021, 03/02/2021, 07/20/2020, Additional history exists Influenza Vaccine (#1) 2023 , 02/02/2020, 02/24/2019, Additional history exists Fall Risk Assessment 07/15/2024 07/16/2023, 07/09/2023, 04/08/2023, Additional history exists Pneumococcal vaccine 65+ Completed 07/01/2017, 02/28 Zoster Vaccine Completed 05/05/2019, 02/24/2019 Abdominal Aortic Aneurysm (A AA) Screen Completed 08/24/2021, 04/23/2021, 10/16/2020, Additional history exists Goals Goal Patient Goal Type Associated Problems Recent Progress Patient-Stated? Author CCM Chronic Pain Care Plan Chronic Care Management No change(07/15 9:38 AM CDT) No Chelsie Hairston RN Note: Problem: Chronic Pain Goals: 1. Minimize further functional decline 2. Maximize quality of life 3. Control pain Strategies: - Activity/exercise program recommendation - Conservative stepwise pain medicine strategy with multi-disciplinary approach - Recommend healthy lifestyle strategies and compensatory methods as needed Medical Devices Implanted Type Area Animal Caregiver Device Identifier Shelf Expiration Date Model / Serial / Lot [employer] [id number] Tissue Bone Void Filler Acupac Plus 25cc - [id number] - [id number] Implanted:Qty: 1 on 07/06/2020 by Zenon Mead MD at [facility] Graft N/A: Spine Lumbar [employer] 09/24/2023 [id number] / [id number] / [id number] Medtronic Sofamor Danek [id number] Infuse 14mm 23mm Absorbable Sponge Sterile Water Syringe Needle - S. - [id number] Implanted:Qty: 1 on 07/06/2020 by Zenon Mead MD at [facility] Graft N/A: Spine Lumbar Medtronic Inc 01/26/2021 [id number] / . / [id number] [employer] 1134.001 Creo Spinal Cap Locking Nonsterile Mis - S. - [id number] Implanted:Qty: 4 on 07/06/2020 by Zenon Mead MD at [facility] Other - see comments N/A: Spine Lumbar [employer] 07/06/2020 1134.0010 / . / [employer] 193.122 Rise [id number] 10d Lordotic Spacer Spinal Nonsterile - S. - [id number] Implanted:Qty: 1 on 07/06/2020 by Zenon Mead MD at [facility] Other - see comments N/A: Spine Lumbar [employer] 07/06/2020 193.122 / . / [employer] 1134.7055 Creo Mis 5.5mm 55mm Curve Erich Spinal Titanium - S. - [id number] Implanted:Qty: 2 on 07/06/2020 by Zenon Mead MD at [facility] Other - see comments N/A: Spine Lumbar [facility] 07/06/2020 1134.7055 / . / [employer] 1134.01 Creo Mis 30mm Modular Polyaxial Tulip Head Screw Bone - S. - [id number] Implanted:Qty: 4 on 07/06/2020 by Zenon Mead MD at [facility] Screw N/A: Spine Lumbar [facility] 07/06/2020 1134.0100 / . / [employer] 1067.4650 Creo 6.5mm 50mm Cannulated Modular Spine Screw Bone - S. - [id number] Implanted:Qty: 4 on 07/06/2020 by Zenon Mead MD at [facility] Screw N/A: Spine Lumbar [facility] Medical 07/06/2020 1067.4650 / . / Allosource Cubes Graft 15ml Bone Cancellous [id number] - [id number] Implanted:Qty: 1 on 10/25/2021 by Chevy Teresa MD at [facility] N/A: Lumbar-S acral Spine [employer]osource 11/22/2025 [id number] / / [id number] Integra Onyx Groupciences Carlene Dp-1011 Duragen Plus 1x1in Patch Resorbable Suturable Cranial Dura Graft - [id number] Implanted:Qty: 1 on 10/25/2021 by Chevy Teresa MD at [facility] N/A: Lumbar-S acral Spine Integra Lifesciences Carlene [id number] / / Depuy Synthes Spine Expedium 6.5mm 50mm Polyaxial Spine Screw Bone Titanium 5.5mm Erich [id number] - [id number] Implanted:Qty: 2 on 10/25/2021 by Chevy Teresa MD at [facility] N/A: Lumbar-S acral Spine Depuy Synthes Spine [id number] / / Depuy Synthes Spine Expedium 6.5mm 45mm Polyaxial Spine Screw Bone Titanium 5.5mm Erich [id number] - [id number] Implanted:Qty: 6 on 10/25/2021 by Chevy Teresa MD at [facility] N/A: Lumbar-S acral Spine Depuy Synthes Spine [id number] / / Depuy Synthes Spine Expedium 1 Inner Monoaxial Spine Screw Set Titanium [id number] - [id number] Implanted:Qty: 8 on 10/25/2021 by Chevy Teresa MD at [facility] N/A: Lumbar-S acral Spine Depuy Synthes Spine [id number] / / Depuy Synthes Spine Expedium Od5.5 Mm L90 Mm Line Prebent Erich Spinal Titanium Nonsterile [id number] - [id number] Implanted:Qty: 1 on 10/25/2021 by Chevy Teresa MD at [facility] N/A: Lumbar-S acral Spine Depuy Synthes Spine [id number] / / Depuy Synthes Spine Substitute Bone Graft Fibergraft Gps Medium Putty 6cc [id number] - [id number] Implanted:Qty: 1 on 10/25/2021 by Chevy Teresa MD at [facility] N/A: Lumbar-S acral Spine Depuy Synthes Spine [id number] 10/26/2023 [id number] / / [id number] Depuy Synthes Spine Cage Post Spinal Lumbar 8 Degree Tlif Curved Eit Plif [id number] Titanium [id number] - [id number] Implanted:Qty: 1 on 10/25/2021 by Chevy Teresa MD at [facility] N/A: Lumbar-S acral Spine Depuy Synthes Spine [id number] 04/27/2023 [id number] / / [id number] Explanted Type Area Animal Caregiver Device Identifier Shelf Expiration Date Model / Serial / Lot Medtronic Inc Vectris 5mm 60cm 1x8 Electrode Trial Lead Neurostimulator [id number] - Sn/A - [id number] Implanted:Qty: 1 on 07/09/2023 by Carey Sosa MD at [facility] Explanted:Qty: 1 Spinal Cord Stimulator Back Medtronic Inc 06/06/2027 [id number] / N/A / [id number] Medtronic Inc Vectris 5mm 60cm 1x8 Electrode Trial Lead Neurostimulator [id number] - Sn/A - [id number] Implanted:Qty: 1 on 07/09/2023 by Carey Sosa MD at [facility] Explanted:Qty: 1 Spinal Cord Stimulator Back Medtronic Inc 06/20/2027 [id number] / N/A / [id number] Screws Explanted:Qty: 3 on 04/01/2024 by Dima Terrell MD at [facility] Left: Elbow Other 0 / / Description:Explanted 3 scre ws from elbow Procedures Procedure Name Priority Date/Time Associated Diagnosis Comments LA CAST SUP LNG ARM SPLINT FBRG Routine 04/05/2024 1:37 PM SALES ARCHITECT Left elbow pain LA APPLICATION LONG ARM SPLINT SHOULDER HAND Routine 04/05/2024 1:37 PM SALES ARCHITECT Left elbow pain FL FLUOROSCOPY < 1 HOUR IP Routine 04/01/2024 11:44 AM SALES ARCHITECT LA AN PROCEDURE PLACEHOLDER Routine 04/01/2024 10:55 AM SALES ARCHITECT LA AN ELECTIVE SUPRAGLOTTIC AIRWAY Routine 04/01/2024 10:55 AM SALES ARCHITECT REMOVAL HARDWARE - UPPER EXTREMITY 04/01/2024 10:44 AM SALES ARCHITECT Encounter for removal of internal fixation device Left elbow pain Case Notes LT ELBOW HARDWARE REMOVAL *SYNTHES UNIVERSAL SCREW REMOVAL SET* Special Needs SYNTHES UNIVERSAL SCREW REMOVAL SET EGFR Routine 03/29/2024 12:59 PM SALES ARCHITECT Pre-op testing BASIC METABOLIC PANEL Routine 03/29/2024 12:59 PM SALES ARCHITECT Pre-op testing CBC WITHOUT DIFFERENTIAL Routine 03/29/2024 12:59 PM SALES ARCHITECT Pre-op testing ECG 12-LEAD Routine 03/29/2024 12:52 PM SALES ARCHITECT Pre-op testing CT ABDOMEN W CONTRAST Schedule Routine, Read Routine (OP Routine) 08/24/2021 9:49 AM CDT Hepatic cyst from Last 3 Months or Most Recently Relevant to Health Maintenance Results * LA APPLICATION LONG ARM SPLINT SHOULDER HAND, LA CAST SUP LNG ARM SPLINT FBRG (04/05/2024 1:37 PM SALES ARCHITECT) Narrative Dima Terrell MD - 04/05/2024 1:37 PM SALES ARCHITECT Dima Terrell MD 04/05/2024 1:37 PM Ortho Casting/Splinting Documentation Date/Time: 04/05/2024 1:37 PM Performed by: Dima Terrell MD Authorized by: Dima Terrell MD Sensation: Normal Cast Applied: No Location: Wrist Wrist: L wrist Splint type: Long arm splint Supplies: Fiberglass, cotton stocking/sleeve and cotton Padding Number of fiberglass rolls used: 2 Capillary Refill: Normal Patient tolerance of procedure: Tolerated well, no immediate complications STATIC Dima Terrell MD IN CLINIC/BEDSIDE ORDERA BLES Final Result * FL Fluoroscopy < 1 Hour (04/01/2024 11:44 AM SALES ARCHITECT) Narrative [id number] - 04/01/2024 11:47 AM SALES ARCHITECT The images from this study are not interpreted by Radiology. Please refer to the physician's procedure / OR operative note. Dima Terrell MD IMG FLUOROSCOPY PROCEDUR ES Final Result [id number] * LA AN ELECTIVE SUPRAGLOTTIC AIRWAY, LA AN PROCEDURE PLACEHOLDER (04/01/2024 10:55 AM SALES ARCHITECT) Prosper Lew CRNA - 04/01/2024 10:55 AM SALES ARCHITECT Prosper Whitaker CRNA 04/01/2024 10:55 AM Airway Patient location: OR Urgency: elective Indications for airway management: anesthesia Difficult airway: no Staff: Supervising provider: Rip Anderson DO Placed by: PALEOLOGY TEACHER: Prosper Whitaker CRNA Emergent airway documentation: Risks and benefits discussed: yes Consent obtained: yes Consent given by: patient Airway prep: Preoxygenated: yes Patient position: sniffing MILS maintained throughout: yes Mask difficulty assessment: 0 - not attempted Spontaneous ventilation during airway: absent Sedation level during airway: GA Final airway details: Final airway type: supraglottic airway Final supraglottic airway: classic SGA size: 4 Number of attempts: 1 us Rip Anderson DO ANESTHESIA ORDERABLES Final R esult * eGFR (03/29/2024 12:59 PM SALES ARCHITECT) eGFR 63 >=60 mL/min/1. 73 m2 Comment: Interpretive Data Reference Interval Normal >/= 90 mL/min/1.73m2 Mildly decreased* 60 - 89 mL/min/1.73m2 Mildly to moderately decreased 45 - 59 mL/min/1.73m2 Moderately to severely decreased 30 - 44 mL/min/1.73m2 Severely decreased 15 - 29 mL/min/1.73m2 Kidney Failure < 15 mL/min/1.73m2 *Relative to young adult level Estimated glomerular filtration rate is determined by the 2020 CKD-EPI equation recommended by the National Kidney Foundation (A Unifying Approach to GFR Estimation: Recommendations of the NKF-ASK Task Force on Reassessing the Inclusion of Race in Diagnosing Kidney Disease, JASN 2020). The CKD-EPI equation should not be used for patients with unstable renal function and has not been validated in children and those over 70. Current interpretive data was last reviewed 2021. Testing performed by: [facility], [address] [place] [address]., [id number] Blood 03/29/2024 12:5 9 PM SALES ARCHITECT 03/29/2024 1:21 PM SALES ARCHITECT us Prosper Nichols MD LAB BLOOD ORDERABL ES Final Result [facility] [address] [facility] [place] [address] * (ABNORMAL) CBC without differential (03/29/2024 12:59 PM SALES ARCHITECT) [facility] WBC 7.9 3.8 - 9.9 K/cumm Comment:Testing performed by : [address], [address] Hgb 14.1 13.0 - 17.5 g/dL [facility] Comment:Testing performed by : [address], [address] Hct 44.0 38.9 - 50.3 % [facility] Comment:Testing performed by : [address], [address] Plt 253 150 - 400 K/cumm [facility] Comment:Testing performed by : [address] [address] MPV 10.8 9.1 - 12.3 fL [facility] Comment:Testing performed by : [address], [address] RBC 5.99(H) 4.30 - 5.80 M/cumm [facility] Comment:Testing performed by : [address] [address] MCV 73.5(L) 81.3 - 96.4 fL [facility] Comment:Testing performed by : [address] [address] MCH 23.5(L) 27.1 - 33.3 pg [facility] Comment:Testing performed by : [address], [address] MCHC 32.0(L) 32.3 - 35.7 g/dL [facility] Comment:Testing performed by : [address], [address] RDW CV 21.0(H) 11.1 - 14.9 % [facility] Comment:Testing performed by : [address] [address] RDW SD 50.6(H) 35.7 - 48.1 fL [facility] Comment:Testing performed by : [address], [address] NRBC abs 0.00 0.00 - 0.01 K/cumm [facility] Comment:Testing performed by : [address] [address] Blood 03/29/2024 12:5 9 PM SALES ARCHITECT 03/29/2024 1:21 PM SALES ARCHITECT us Prosper Nichols MD LAB BLOOD ORDERABL ES Final Result [facility] [address] [facility] [place] [address] * Basic metabolic panel (03/29/2024 12:59 PM SALES ARCHITECT) Sodium 136 135 - 145 mmol/L Comment:Testing performed by : [address] [address] Potassium, pl 4.1 3.3 - 4.9 mmol/L [facility] Comment:Testing performed by : [address] [address] Chloride 100 97 - 110 mmol/L [facility] Comment:Testing performed by : [address] [address] CO2 24 22 - 32 mmol/L [facility] Comment:Testing performed by : [address] [address] Anion gap 12 2 - 15 mmol/L [facility] Comment:Testing performed by : [address] [address] BUN 22 6 - 25 mg/dL [facility] Comment:Testing performed by : [address] [address] Creatinine 1.20 0.80 - 1.30 mg/dL [facility] Comment:Testing performed by : [address] [address] Glucose 100 70 - 199 mg/dL [facility] Comment: Interpretive Data Fasting glucose >/= 126 mg/dl is diagnostic for diabetes. Fasting is defined as no caloric intake for at least 8 hours. Fasting glucose between 100 mg/dl to 125 mg/dl is diagnostic of prediabetes. In a patient with classic symptoms of hyperglycemia or hyperglycemic crisis, a random glucose >/= 200 mg/dl is diagnostic for diabetes. In the absence of unequivocal hyperglycemia, results should be confirmed by repeat testing. The classification and Diagnosis of Diabetes Diabetes Care 2021; 46: S19-S40. Current interpretive data was last revised 2022. Testing performed by: [facility], [address] [place] [address]., [address] Calcium 9.4 8.5 - 10.3 mg/dL [facility] Comment:Testing performed by : [facility], [address] [place] [address]., [address] Blood 03/29/2024 12:5 9 PM SALES ARCHITECT 03/29/2024 1:21 PM SALES ARCHITECT us Prosper Nichols MD LAB BLOOD ORDERABL ES Final Result Performing Organization Address City/[facility]/ZIP Co de Phone Number [facility] [address] [facility] [place] [address] * ECG 12 lead (03/29/2024 12:52 PM SALES ARCHITECT) Ventricular Rate EKG/Min 78 BPM [facility] Atrial Rate 78 BPM [facility] LA-Interval (MSEC) 168 ms [facility] QRS-Interval (MSEC) 92 ms [facility] QT-Interval (MSEC) 350 ms [facility] QTc 399 ms [facility] P [place] 9 degrees [facility] R [place] -24 degrees [facility] T [place] 3 degrees [facility] Diagnosis Normal sinus rhythm Minimal voltage criteria for LVH, may be normal variant Inferior infarct Old Abnormal ECG When compared with ECG of 29-JUN-2020 12:51, Inferior infarct is now Present Confirmed by SULTAN OROURKE M.D. ([id number]) on 03/29/2024 4:28:19 PM [facility] 03/29/2024 12:5 2 PM SALES ARCHITECT 03/29/2024 4:28 PM SALES ARCHITECT us Prosper Nichols MD ECG ORDERABLES Fi nal Result [facility] * CT Abdomen W Contrast (08/24/2021 9:49 AM CDT) Anatomical Region Laterality Modality Body N/A Computed Tomogra phy 08/24/2021 10:4 0 AM CDT Impressions 08/24/2021 2:04 PM CDT 1. 6 cm hepatic segments 4A/8 cyst. 2. 10 mm arterially hyperenhancing lesion in the liver segment 7, likely representing a flash filling hemangioma. Dictated by: Madyson Jack M.D. The radiology attending physician has personally reviewed this study, and had reviewed and/or edited this written report and agrees with it. Electronically signed by: Melquiades Forrest M.D. , PHD Narrative 08/24/2021 2:04 PM CDT EXAMINATION: CT ABDOMEN W CONTRAST HISTORY: Assess liver cyst TECHNIQUE: Transaxial computed tomographic images of the abdomen were obtained with intravenous contrast according to the liver chemoembolization protocol after the uneventful administration of 121 mL Opti-Ray 350 intravenous contrast. COMPARISON: CT 11/03/2020 FINDINGS: The lung bases are clear. Heart size is normal. No pericardial effusion. There is a 6.0 x 5.4 cm fluid attenuation lesion centered in hepatic segments 4A and 8 without internal contrast enhancement or septation, favored to represent a cyst. There are also surrounding smaller similar-appearing hypoattenuating lesions are too small to characterize but also likely represent cysts. 10 mm arterially hyperenhancing segment 7 lesion with subsequent equilibration, likely a flash filling hemangioma. No suspicious liver lesions seen. There is no intrahepatic or extrahepatic ductal dilation. Gallbladder is normal. There is a duodenal diverticulum. The pancreas is normal. Hypoattenuating lesion seen in the spleen on the portal venous phase are too small to characterize and likely represent cysts Unchanged thickening of the left adrenal glands. The kidneys enhance symmetrically. There is a sub-2 mm nonobstructing renal calculus in the lower pole of the left kidney. There are multiple right lateral renal cysts. There are peripelvic cysts. There is no hydronephrosis. The abdominal aorta is normal in course and caliber with mild atherosclerosis. The visualized loops of bowel aren't normal in caliber. There is colonic diverticulosis without diverticulitis. Left common iliac bypass is partially seen. No acute fracture or suspicious osseous lesion. Posterior instrumented L4-L5 fusion is seen. Procedure Note Melquiades Forrest MD PhD - 08/24/2021 EXAMINATION: CT ABDOMEN W CONTRAST HISTORY: Assess liver cyst TECHNIQUE: Transaxial computed tomographic images of the abdomen were obtained with intravenous contrast according to the liver chemoembolization protocol after the uneventful administration of 121 mL Opti-Ray 350 intravenous contrast. COMPARISON: CT 11/03/2020 FINDINGS: The lung bases are clear. Heart size is normal. No pericardial effusion. There is a 6.0 x 5.4 cm fluid attenuation lesion centered in hepatic segments 4A and 8 without internal contrast enhancement or septation, favored to represent a cyst. There are also surrounding smaller similar-appearing hypoattenuating lesions are too small to characterize but also likely represent cysts. 10 mm arterially hyperenhancing segment 7 lesion with subsequent equilibration, likely a flash filling hemangioma. No suspicious liver lesions seen. There is no intrahepatic or extrahepatic ductal dilation. Gallbladder is normal. There is a duodenal diverticulum. The pancreas is normal. Hypoattenuating lesion seen in the spleen on the portal venous phase are too small to characterize and likely represent cysts Unchanged thickening of the left adrenal glands. The kidneys enhance symmetrically. There is a sub-2 mm nonobstructing renal calculus in the lower pole of the left kidney. There are multiple right lateral renal cysts. There are peripelvic cysts. There is no hydronephrosis. The abdominal aorta is normal in course and caliber with mild atherosclerosis. The visualized loops of bowel aren't normal in caliber. There is colonic diverticulosis without diverticulitis. Left common iliac bypass is partially seen. No acute fracture or suspicious osseous lesion. Posterior instrumented L4-L5 fusion is seen. IMPRESSION: 1. 6 cm hepatic segments 4A/8 cyst. 2. 10 mm arterially hyperenhancing lesion in the liver segment 7, likely representing a flash filling hemangioma. Dictated by: Madyson Jack M.D. The radiology attending physician has personally reviewed this study, and had reviewed and/or edited this written report and agrees with it. Electronically signed by: Melquiades Forrest M.D. , PHD Jm Carlos MD [facility] CT PROCEDURES Leslie l Result from Last 3 Months or Most Recently Relevant to Health Maintenance Insurance AET[employer] MEDICARE GOLD AETNA MEDICARE GOLD Advance Directives For more information, please contact: [phone] * Full Code (Latest Code Status on File) Date Activated Date Inactivated Comments 10/25/2021 8:19 PM 10/28/2021 6:25 PM * Full Code Date Activated Date Inactivated Comments 07/06/2020 5:18 PM 07/07/2020 7:26 PM Care Teams Behavioral Therapy Coordinator Relationship Specialty Start Date End Date Mervin Handley DO [address] [place] [address] PCP - General Internal Medicine 03/17/24 Leon Weir MD Certification Officer Cardiology 06/21/20 Carey Sosa MD [address] [facility] [place] [address] Consulting Physician Pain Management 03/11/23
--- OUTSIDE RECORDS SUMMARY | 2024-06-18 05:05 | XMS_ITS | Patient Health Summary ---
Author Organization [facility] Address [address] [address] Care Team Providers Care Plant Guard Name Role Phone Blake Bustillo Matheus GOYAL Primary Care Provider [phone] Note from [facility],non-owned Affiliates and Associated Physician Practices is amultiple site organization consisting of ambulatory clinics and hospital sitesin [place], [place], [place] and [place]. This disclosure is being madepursuant to the Care Everywhere program and may not contain all information available regarding this patient. Last updated 18.[facility] Allergies No known active allergies Medications * Be aware that medications may not be up to date on this document. Alwaysverify current medications with the patient. * lisinopril (PRINIVIL; ZESTRIL) 10 MG tablet Take 10 mg by mouth once daily * amLODIPine (NORVASC) 10 MG tablet Take 10 mg by mouth once daily * metoprolol succinate XL 24hr (TOPROL XL) 25 MG tablet Take 25 mg by mouth once daily * atorvastatin (LIPITOR) 40 MG tablet Take 40 mg by mouth at bedtime * oxyCODONE-acetaminophen (PERCOCET) 5-325 MG tablet(Started 03/09/2018) Take 1 tablet by mouth every 4 hours as needed for Pain * docusate sodium (COLACE) 100 MG capsule(Started 03/09/2018) Take 1 capsule by mouth once daily Social History Tobacco Use Types Packs/Day Years Used Date Smoking Tobacco: Never Smokeless Tobacco: Never Alcohol Use Standard Drinks/Week Comments No 0 (1 standard drink = 0.6 oz pur e alcohol) Sex and Gender Information Value Date Recorded Sex Assigned at Not on file Gender Identity Not on file Sexual Orientation Not on file Last Filed Vital Signs Vital Sign Reading Time Taken Comments Blood Pressure 126/72 03/09/2018 6:44 PM CURTAIN CLEANER Pulse 77 03/09/2018 6:44 PM CURTAIN CLEANER Temperature 36.3 C (97.4 F) 03/09/2018 6:15 PM CURTAIN CLEANER Respiratory Rate 16 03/09/2018 6:44 PM CURTAIN CLEANER Oxygen Saturation 94% 03/09/2018 6:44 PM CURTAIN CLEANER Inhaled Oxygen Concentration - - Weight 96.2 kg (212 lb) 03/09/2018 10:54 AM CURTAIN CLEANER Height 180.3 cm (5' 11 ) 03/09/2018 10:54 AM CURTAIN CLEANER Body Mass Index 29.57 03/09/2018 10:54 AM CURTAIN CLEANER Medical Devices Implanted Type Area Mine Utility Operator Device Identifier Shelf Expiration Date Model / Serial / Lot [place] Sut Healicoil Ulbrd 5.5mm Implanted:Qty: 2 on 03/09/2018 by Min Last MD at [facility] Right: Shoulder [employer] 04/30/2022 [id number] / / [id number] Description:Healicoil PK 5.5 MM Suture [place] with Two ULTRABRAID Sutures [place] Sut Multifix S Ult Peek Kntls 5.5 Implanted:Qty: 2 on 03/09/2018 by Min Last MD at [facility] Right: Shoulder [employer] Endoscopy 11/17/2020 [id number] / / [id number] Procedures * CARDIAC RHYTHM STRIP ORDER(Performed 03/12/2018) * IMAGING/RADIOLOGY/XRAY RESULTS ORDER(Performed 03/11/2018) * ENDOTRACHEAL TUBE NOTE(Performed 03/09/2018) * ARTHROSCOPY SHOULDER ROTATOR CUFF REPAIR (RCR)(Performed 03/09/2018) Performed for Diagnosis unknown * PERIPHERAL BLOCK(Performed 03/09/2018) Results * CARDIAC RHYTHM STRIP ORDER (03/12/2018 2:05 AM CURTAIN CLEANER) Narrative 03/12/2018 2:05 AM CURTAIN CLEANER Ordered by an unspecified provider. Scanned Document CARDIAC SERVICES ORD ERABLES * IMAGING/RADIOLOGY/XRAY RESULTS ORDER (03/11/2018 5:59 PM CURTAIN CLEANER) Anatomical Region Laterality Modality Other Narrative 03/11/2018 5:59 PM CURTAIN CLEANER Ordered by an unspecified provider. Scanned Document IMAGING Care Teams Plant Guard Relationship Specialty Start Date End Date Blake Bustillo DO [address] [facility] [address] [place] [address] PCP - General Internal Medicine 03/09/18
--- OUTSIDE RECORDS SUMMARY | 2024-06-18 05:05 | XMS_ITS | Referral Summary ---
Author Organization [facility] Address [address] [place] [address] Care Team Providers Care Staffing Consultant Name Role Phone Blake Bustillo Primary Care Provider [phone] Source Comments [facility],non-owned Affiliates and Associated Physician Practices is amultiple site organization consisting of ambulatory clinics and hospital sitesin [place], [place], [place] and [place]. This disclosure is being madepursuant to the Care Everywhere program and may not contain all information available regarding this patient. Last updated 18.[facility] Allergies No known active allergies Medications * Be aware that medications may not be up to date on this document. Alwaysverify current medications with the patient. Medication Sig Dispensed Refills Start Date End Date Status lisinopril (PRINIVIL; ZESTRIL) 10 MG tablet Take 10 mg by mouth once daily Active amLODIPine (NORVASC) 10 MG tablet Take 10 mg by mouth once daily Active metoprolol succinate XL 24hr (TOPROL XL) 25 MG tablet Take 25 mg by mouth once daily Active atorvastatin (LIPITOR) 40 MG tablet Take 40 mg by mouth at bedtime Active oxyCODONE-acetaminop hen (PERCOCET) 5-325 MG tablet Take 1 tablet by mouth every 4 hours as needed for Pain 30 tablet 03/09/2018 Active docusate sodium (COLACE) 100 MG capsule Take 1 capsule by mouth once daily 30 capsule 03/09/2018 Active Social History Tobacco Use Types Packs/Day Years [...] Comments Blood Pressure 126/72 03/09/2018 6:44 PM BEARING MAKER Pulse 77 03/09/2018 6:44 PM BEARING MAKER Temperature 36.3 C (97.4 F) 03/09/2018 6:15 PM BEARING MAKER Respiratory Rate 16 03/09/2018 6:44 PM BEARING MAKER Oxygen Saturation 94% 03/09/2018 6:44 PM BEARING MAKER Inhaled Oxygen Concentration - - Weight 96.2 kg (212 lb) 03/09/2018 10:54 AM BEARING MAKER Height 180.3 cm (5' 11 ) 03/09/2018 10:54 AM BEARING MAKER Body Mass Index 29.57 03/09/2018 10:54 AM BEARING MAKER Plan of Treatment Not on file Medical Devices Implanted Type Area Evp Operations Device Identifier Shelf Expiration Date Model / Serial / Lot [place] Sut Healicoil Ulbrd 5.5mm Implanted:Qty: 2 on 03/09/2018 by Min Last MD at [facility] Right: Shoulder [employer] 04/30/2022 [id number] / / [id number] Description:Healicoil PK 5.5 MM Suture [place] with Two ULTRABRAID Sutures [place] Sut Multifix S Ult Peek Kntls 5.5 Implanted:Qty: 2 on 03/09/2018 by Min Last MD at [facility] Right: Shoulder [employer] Nephew Endoscopy 11/17/2020 [id number] / / [id number] Care Teams Staffing Consultant Relationship Specialty Start Date End Date Blake Bustillo DO [address] [facility] [address] [place], [place] [id number] PCP - General Internal Medicine 03/09/18
--- OUTSIDE RECORDS SUMMARY | 2024-06-18 05:05 | XMS_ITS | Clinical Summary ---
Author Organization [facility] Address [address] [place] [address] Phone Care Team Providers Care Rouge Sifter And Miller Name Role Phone Blake Bustillo DO Primary Care Provider [phone] Allergies No known active allergies Medications lisinopril (PRINIVIL) 10 mg tablet Take 10 mg by mouth daily take 1 tablet (10MG) daily. Active Tadalafil (CIALIS) 5 mg tablet take 1 tablet (5MG) by oral route every day 08/27/2011 Active multivitamin (DAILY-JUNE) tablet Take 1 Tab by mouth daily. Active omega-3 fatty acids-fish oil 300-1,000 mg Capsule Take by mouth daily . Active amLODIPine (NORVASC) 10 mg tablet Take 10 mg by mouth daily. Active metoprolol succinate (TOPROL XL) 25 mg Extended Release 24 hour tablet Take 25 mg by mouth daily. Active atorvastatin (LIPITOR) 20 mg tablet Take 40 mg by mouth late in the day . Active aspirin (ECOTRIN EC) 81 mg Tablet, Delayed Release (E.C.) Take 81 mg by mouth daily. Active arginine (L-ARGININE) 10 % Solution Take by mouth. Active traMADol (ULTRAM) 50 mg tablet Take 100 mg by mouth every 6 hours as needed for Pain. Active metoclopramide HCl (REGLAN) 10 mg tablet TAKE 1 TABLET BY MOUTH FOUR TIMES DAILY BEFORE MEALS AND AT BEDTIME 28 Tablet 07/08/2016 Active coenzyme Q10 Capsule Take 10 mg by mouth daily. Active oxyCODONE-aceta minophen (PERCOCET) 5-325 mg tablet Take 1 Tablet by mouth every 4 hours as needed for Pain, Moderate. Max Daily Amount: 6 Tablets 40 Tablet 05/09/2017 8:14 PM STONEWORKING BELT SANDER 05/09/2017 Active diazePAM (VALIUM) 5 mg tablet Take 1 Tablet by mouth every 6 hours as needed for Anxiety. 20 Tablet 05/09/2017 8:14 PM STONEWORKING BELT SANDER 05/09/2017 Active docusate sodium (COLACE) 100 mg capsule Take 1 Capsule by mouth 2 times daily. 20 Capsule 05/09/2017 8:14 PM STONEWORKING BELT SANDER 05/09/2017 Active Active Problems Problem Noted Date Diagnosed Date Mixed hyperlipidemia 03/14/2024 Primary hypertension 03/14/2024 S/P AAA repair 03/14/2024 Dilated aortic root 03/14/2024 Coronary artery disease invo lving chenega coronary artery of chenega heart without angina pectoris 03/14/2024 URIEL (obstructive sleep apnea) 03/14/2024 Erectile dysfunction 03/14/2024 Postprocedural hypotension 06/11/2016 Lactic acidosis 06/11/2016 Abdominal aortic aneurysm greater than 39 mm in diameter 06/06/2016 Encounters Date Type Department Care Team Description 06/16/2024 External Device Data STL ABSTRACTION Provider, Abstract 05/26/2024 External Device Data STL ABSTRACTION Provider, Abstract 05/20/2024 External Device Data STL ABSTRACTION Provider, Abstract 04/02/2024 Telephone [facility] Neurosurgery [facility] [address] [facility] [address] [place] [address] Lex Solares MD Wants Appointment from Last 3 Months Immunizations Immunization Administration Dates Next Due Influenza Seasonal Unspecified Formulation IM Social History Tobacco Use Types Packs/Day Years Used Date Smoking Tobacco: Former Cigarettes 1 15 1 05/07/1983 - 03/07/1999 Smokeless Tobacco: Never Comments:quit 15 years ago Alcohol Use Standard Drinks/Week Comments No 0 (1 standard drink = 0.6 oz pur e alcohol) Sex and Gender Information Value Date Recorded Sex Assigned at Not on file Legal Sex Male 4:30 AM STONEWORKING BELT SANDER Gender Identity Not on file Sexual Orientation Not on file Occupation Industry Job Start Date Job End Date Not on file Not on file Not on file Not on file Last Filed Vital Signs Vital Sign Reading Time Taken Comments Blood Pressure 124/74 02/26/2024 10:30 AM CDT Pulse 73 02/26/2024 10:30 AM CDT Temperature 36.9 C (98.4 F) 05/09/2017 10:03 PM STONEWORKING BELT SANDER Respiratory Rate 14 05/09/2017 10:03 PM STONEWORKING BELT SANDER Oxygen Saturation 94% 02/26/2024 10:30 AM CDT Inhaled Oxygen Concentration - - Weight 102.1 kg (225 lb) 02/26/2024 10:30 AM CDT Height 182.9 cm (6') 02/26/2024 10:30 AM CDT Body Mass Index 30.52 02/26/2024 10:30 AM CDT Plan of Treatment Upcoming Encounters Date Type Department Care Team (Late st Contact Info) Description 08/26/2024 11:00 AM CDT Office Visit [facility] and Vascular At [address] [place] [id number] Tyler Grossman MD [address] [place] [address] [address] [place] [address] Health Maintenance Due Date Last Done Comments DTAP/TDAP/TD VACCINES (1 - Tdap) 01/09/1968 PNEUMOCOCCAL VACCINE 65+ YEARS (1 of 2 - PCV) 01/08/19 68 COLORECTAL SCREENING 1994 Colorectal Cancer Screening 1994 FIT-DNA Q 3 years 1994 FIT/FOBT Q 1 year 1994 Flex Sig/CT Colonography Q 5 years 1994 ZOSTER VACCINE (1 of 2) 1999 Abdominal Aortic Aneurysm (AAA) Screening 2014 INFLUENZA VACCINE (#1) 2023 04/06/2016 RSV VACCINE (60+ or ) (1 - 1-dose 75+ series) 01/09/2024 Medical Devices Implanted Type Area Vp Design Device Identifier Shelf Expiration Date Model / Serial / Lot Endobutton 4x12mm [id number] - [id number] Implanted:Qty : 1 on 02/01/2014 by Shay Silveira MD at [facility] [place] Right: Arm [employer]PHEW- ENDOSCOPY 04/27/2016 [id number] / / [id number] [place] Sut Bio Swvlck-C [id number] - [id number] Implanted:Qty : 1 on 05/09/2017 by Min Last MD at [facility] [place] Right: Shoulder [employer] [id number] 02/25/2019 [id number] C-2 / / [id number] Graft Hmshld Gold Bifur [id number] - [id number] Implanted:Qty : 1 on 06/10/2016 by Adrien Fontana MD at [facility] Graft N/A: Abdomen [employer] 01/25/2021 [id number] / / [id number] Explanted Type Area Vp Design Device Identifier Shelf Expiration Date Model / Serial / Lot Pin Tony Lemons 5/64x9in [id number] - [id number] Explanted:Qty: 1 on 02/01/2014 at [facility] Pin Right: Arm BRASSELER [facility] [id number] Description:load 36, jan 30, 2014 Insurance AETNA [id number] [facility] Wattpad [facility] AETNA Medicare Part D Advance Directives For more information, please contact: [phone] * Full Code (Latest Code Status on File) Date Activated Date Inactivated Comments 05/09/2017 3:24 PM 05/10/2017 12:19 AM * Full Code Date Activated Date Inactivated Comments 05/09/2017 12:41 PM 05/09/2017 3:24 PM * Full Code Date Activated Date Inactivated Comments 06/10/2016 5:03 PM 06/16/2016 2:58 PM * Full Code Date Activated Date Inactivated Comments 06/10/2016 10:59 AM 06/10/2016 5:03 PM * Full Code Date Activated Date Inactivated Comments 02/01/2014 9:54 AM 02/01/2014 4:53 PM Care Teams Rouge Sifter And Miller Relationship Specialty Start Date End Date Blake Bustillo DO [address] [place] [id number] PCP - General Internal Medicine 01/25/14
--- OUTSIDE RECORDS SUMMARY | 2024-06-18 05:05 | XMS_ITS | Data Portability ---
Author Organization [facility], Main Office Address [address] [place] [id number] Assessment No assessment recorded. Plan of Treatment Reminders Order Date Submit Date Provider Last Modified By Organization Details Last Modified Time Details Appointments None record ed. Lab None record ed. Referral None record ed. Procedures None record ed. Surgeries None record ed. Imaging None record ed. Medication Orders None record ed. Patient TargetsNo targets recorded. Patient Instructions Encounter Date Encounter Id Patient Instructions Last Modified By Organization Details Last Modified Time 04/03/2022 [id number] He will follow u p with me about 2 weeks after his c-scope. On today's visit I spent a total of {{30 35* 40 45 50 55 60}} minutes prepping for his visit (reviewing shared records), [id number] with him and documenting. [email or web address] Not available 05/17/2022 07:38:49 Reason for Referral None Reported. Problems Name Problem SNOMED Code Status Onset Date Resolution Date Notes Provider Name and Address Organization Details Recorded Time Pile easily reducible 838979936 Active 2022 Luda Londono MD [address] [place] [address], [phone], [facility] 3 07:29:31 External hemorrhoids 23980877 Active 2022 Luda Londono MD [address] [place] [address],[place] [address], [place], [address], [facility] 3 07:35:29 History of repair of aneurysm of abdominal aorta 219523118 Active 2022 Luda Londono MD [facility]. [facility],[address], [place], [address], [facility] [place] 3 07:36:17 Essential hypertension 53260792 Active 2022 Luda Londono MD [facility]. [facility],[address], [place], [address], [facility] [place] 3 07:36:24 Hyperlipidemia 18212554 Active 2022 Luda Londono MD [address] [place] [address],[address], [place], [address], [facility] [place] 3 07:36:48 Problem Notes None recorded. Procedures Surgical History Date Name Laterality Status Provider Name and Address Organization Details Recorded Time 2 Anoscopy completed Luda Londono MD [address] [place] [address],[address], [place], [address], [facility] 05/17/2022 07:29:20 2 excision of lamina of lumbar vertebra completed Luda Londono MD [address] [place] [address],[address], [place], [address], [facility] 05/17/2022 07:25:17 1 Knee Replacement completed Luda Londono MD [address] [place] [address],[address], [place], [address], [facility] [place] 05/17/2022 07:25:39 1 Knee Replacement completed taylor arzola [facility] [place] 04/03/2022 15:02:27 7 repair of aneurysm of abdominal aorta completed Luda Londono MD [address] [place] [address],[address], [place], [address], [facility] [place] 05/17/2022 07:42:21 2 Colonoscopy completed Luda Londono MD [address] [place] [address],[address], [place], [address], [facility] 05/17/2022 07:26:25 Imaging Results None recorded. Procedure Notes None recorded. Medical Equipment None Reported. Allergies No known drug allergies Medications Name Sig Start Date Stop Date Status Note LastModified by Organization Details LastModified Time cyclobenz aprine 10 mg tablet TAKE 1 TABLET BY MOUTH EVERY 8 HOURS NEEDED FOR MUSCLE SPASM active Not Available Not Available No t Available atorvasta tin 40 mg tablet TAKE 1 TABLET BY MOUTH EVERY DAY active Not Available Not Available No t Available anastrozo le 1 mg tablet 05/17 completed Not Available Not Available Not Available hydrocodo ne 5 mg-acetam inophen 325 mg tablet TAKE 1 TABLET BY MOUTH EVERY 4 HOURS NEEDED FOR PAIN . MAX 6 PER DAY active Not Available Not Available No t Available meloxicam 15 mg tablet PLEASE SEE ATTACHED FOR DETAILED DIRECTIO NS active Not Available Not Available No t Available lisinopri l 20 mg tablet TAKE 1 TABLET BY MOUTH EVERY DAY active Not Available Not Available No t Available prednison e 5 mg tablet TAKE 10 TABLETS ON DAY 1 DECREASE BY 1 TAB EACH DAY FOR A TOTAL OF 10 DAYS 05/17 completed Not Available Not Available Not Available oxycodone -acetamin ophen 5 mg-325 mg tablet TAKE 1 TABLET BY MOUTH EVERY 4 TO 6 HOURS NEEDED FOR PAIN active Not Available Not Available No t Available tamsulosi n 0.4 mg capsule TAKE 1 CAPSULE BY MOUTH EVERY DAY active Not Available Not Available No t Available amlodipin e 10 mg tablet TAKE 1 TABLET BY MOUTH EVERY DAY active Not Available Not Available No t Available benzonata te 100 mg capsule TAKE 1 CAPSULE BY MOUTH 3 TIMES A DAY NEEDED FOR COUGH FOR UP TO 10 DAYS. 05/17 completed Not Available Not Available Not Available cephalexi n 500 mg capsule TAKE 1 CAPSULE BY MOUTH TWICE A DAY 05/17 completed Not Available Not Available Not Available gabapenti n 300 mg capsule TAKE 3 CAPSULES BY MOUTH 3 TIMES A DAY. 05/17 completed Not Available Not Available Not Available omeprazol e 20 mg capsule,d elayed release TAKE 1 CAPSULE BY MOUTH EVERY DAY 05/17 completed Not Available Not Available Not Available hydrochlo rothiazid e 25 mg tablet TAKE 1 TABLET BY MOUTH EVERY DAY IN THE MORNING active Not Available Not Available No t Available metoprolo l succinate ER 25 mg tablet,ex tended release 24 hr TAKE 1 TABLET BY MOUTH EVERY DAY active Not Available Not Available No t Available BD Luer-Bee Syringe 3 mL 18 x 1 1/2 05/17 completed Not Available Not Available Not Available oxycodone 5 mg tablet TAKE 1 TABLET (5 MG TOTAL) BY MOUTH EVERY 4 (FOUR) HOURS NEEDED FOR PAIN active Not Available Not Available No t Available pregabali n 100 mg capsule TAKE 1 CAPSULE BY MOUTH TWICE A DAY active Not Available Not Available No t Available BD Eclipse 25 gauge x 1 needle 05/17 completed Not Available Not Available Not Available Senexon-S 8.6 mg-50 mg tablet TAKE 2 TABLETS BY MOUTH TWICE A DAY 05/17 completed Not Available Not Available Not Available Adult Aspirin Regimen 81 mg tablet,de layed release Take 1 tablet every day by oral route. active 04/03/22: He takes for preventi on only. He denies taking any other aspirin products . Not Available Not Available Not Available Ozempic 0.25 mg or 0.5 mg (2 mg/1.5 mL) subcutane ous pen injector INJECT 0.5 MG SUBCUTAN EOUSLY WEEKLY 05/17 completed Not Available Not Available Not Available Paxlovid 300 mg (150 mg x 2)-100 mg tablets in a dose pack TAKE TWO 150 MG TABLETS OF NIRMATRE LVIR WITH ONE 100 MG TABLET OF RITONAVI R TWICE DAILY FOR 5 DAYS 05/17 completed Not Available Not Available Not Available Vitals None Recorded Social History Question Answer Notes LastModified by Organizat ion Details LastModified Time Tobacco Smoking Status Former Smoker ANGELINA asif - [facility] 04/03/2022 15:01:00 Do You Have An Advance Directive? Yes Information not available 04/03/2022 Alcohol Use Yes Information n ot available 04/03/2022 Alcohol Amount Occasional Informatio n not available 04/03/2022 Caffeine Use Yes Information not available 04/03/2022 Caffeine Type Coffee Information not available 04/03/2022 Caffeine Amount 2 Cups Information not available 04/03/2022 Illicit Drug Use No Information not available 04/03/2022 What Was The Date Of Your Most Recent Tobacco Screening? 04/03/2022 Information not available 04/03/2022 How Many Years Have You Smoked Tobacco? 20 Information not available 04/03/2022 Do You Or Have You Ever Used Any Other Forms Of Tobacco Or Nicotine? No Information not available 04/03/2022 Sex: Unknown Functional Status None recorded. Mental Status None recorded. Family History Relationship Description Onset Age of this Age Resolved Age Notes LastModified by Organization Details LastModified Time Mother Heart disease 83 Not available 2021 15:00:43 Mother Malignant tumor of breast [email or web address] Not available 2022 07:22:57 Father Abdominal aortic aneurysm 77 77 [email or web address] Not available 2022 07:20:46 Father Malignant tumor of prostate [email or web address] Not available 2022 07:22:31 Medical History Condition Response Arthritis/Gout Y Reflux/GERD Y Sleep Apnea Y High Cholesterol Y Aneurysm Y Heart Disease Y Hypertension Y Past Encounters Encounter ID Performer Location Encounter Start Date Encounter Closed Date Diagnosis/Indication Diagnosis SNOMED-CT Code Diagnosis ICD10 Code Diagnosis Note [id number] Luda Londono MD Main Office [address] [address] 04/03/2022 14:28:28 04/03/2022 15:49:35 Pile easily reducible 679377863 K64.1 Stage 2 - 3 internal hemorrhoid s: I discussed hemorrhoid s in general with him as well as the treatment options. He now understand s that any non-surgic al procedure (infrared coagulatio n or banding) would be done on his internal hemorrhoid s. I do think he would benefit from IRC. I gave him full informed consent for treatment including risks (I need to more fully detail potential side effects), benefits and alternativ es. He does want to proceed. I want to wait to start his series until he gets his c-scope since it has been at least 10 years since his last one and he already has one scheduled. I d/w him he will be a total of 5 - 6 treatments .He of course needs to consistent ly eat a high fiber diet and drink plenty of water to maintain daily and soft (Guadalupe Scale type 4) BM's. I advised it is perfectly OK for his to take the docusate as needed. I d/w him that I want him to stay on his 81 mg aspirin throughout treatment given his hx of AAA repair and Angina/pos sible CAD. He is aware that it does increase the (already very low) risk of having bleeding from the treatment. External hemorrhoids 239 [address] K64.4 These will improve with IRC. He understand s the only way to directly treat external hemorrhoid s/skin tags would be with a surgical excision. He does not wish to pursue this and his hemorrhoid s are not bad enough to warrant surgery. He should continue using the moist baby wipes. History of repair of aneurysm of abdominal aorta 981896052 Z98.62 Essential hypertension 92269121 I10 He takes his medication and follows routinely with his PCP Hyperlipidemia 01354729 E78.5 He takes his medication and follows routinely with his PCP Health Concerns Section Related Observation LastModified by Organization Detai ls LastModified Time None Recorded Concern Status LastModified by Organization Details LastModified Time None Recorded Advance Directives Directive Y: Payers Encounter Date Sequence Insurance Name Policy Number Policy Nieves Covered Member ID Nieves Member ID Guarantor Name 04/03/2022 1 [employer] (MEDICARE REPLACEMENT HMO) [id number] Adrien Root [id number] Adrien Root Notes Date Note Type Note Provider Name and Address Organization Details Recorded Time 04/03/2022 text/html This is a very pleasant 72 year old man who has had symptoms from his hemorrhoids on and off for many years. These have been worsening over the last few/several years and are now persistent. Bleeding: He occasionally sees a smidge of BRB on the wipe with a BM. He has never had heavy bleeding or leakage of blood in between BM's. Pain: Not really - he has more pressure than pain. Itching: Not really Discharge: It is always hard to get clean after BM's because of swelling and irritation. He does consistently use the moist wipes. He does not have difficulty staying clean - he does not have to re-wipe. He has no drainage. Prolapse: Not that he feels or has to manually reduce. External swelling: He does get swelling with BM's and this is worse when he is flared. Discomfort: He gets external irritation/discomf ort. He has significant internal symptoms of pressure, a sense of being blocked when trying to have a BM and a sense of incomplete emptying after BM's. Previous Hemorrhoid Treatment: He has never used OTC hemorrhoid products. He has never had a prescription for or procedure on his hemorrhoids. Previous Lower GI Endoscopy: He had a first time negative screening c-scope 10 years ago. He has a repeat scheduled for 05/23/22. Bowel Habits: He has had long standing daily BM's that are soft (Guadalupe Scale type 3 - 4). He tries to consistently eat a high fiber diet and drink plenty of water. He does occasionally take 1 - 100 mg docusate. Luda Londono MD [address] [facility], [place], [address], [facility] 05/17/2022 07:44:39
--- OUTSIDE RECORDS SUMMARY | 2024-06-18 05:05 | XMS_ITS | Clinical Summary ---
Author Organization [facility] Address [address] [place] [address] Care Team Providers Care Airline Ticket Agent Name Role Phone Blake Bustillo Primary Care Provider [phone] Source Comments [facility],non-owned Affiliates and Associated Physician Practices is amultiple site organization consisting of ambulatory clinics and hospital sitesin [place], [place], [place] and [place]. This disclosure is being madepursuant to the Care Everywhere program and may not contain all information available regarding this patient. Last updated 18.[facility] Allergies No known active allergies Medications * [...] Comments Blood Pressure 126/72 03/09/2018 6:44 PM BALL SORTER Pulse 77 03/09/2018 6:44 PM BALL SORTER Temperature 36.3 C (97.4 F) 03/09/2018 6:15 PM BALL SORTER Respiratory Rate 16 03/09/2018 6:44 PM BALL SORTER Oxygen Saturation 94% 03/09/2018 6:44 PM BALL SORTER Inhaled Oxygen Concentration - - Weight 96.2 kg (212 lb) 03/09/2018 10:54 AM BALL SORTER Height 180.3 cm (5' 11 ) 03/09/2018 10:54 AM BALL SORTER Body Mass Index 29.57 03/09/2018 10:54 AM BALL SORTER Plan of Treatment Health Maintenance Due Date Last Done Comments COLOGUARD (AGES 45-75) - COL ON CA SCREENING 1949 COLON MONITORING 1949 COLONOSCOPY - COLON CA SCREENING 1949 CT COLONOGRAPHY - COLON CA SCREENING 1949 Colorectal Cancer Screening 1949 FIT - COLON CA SCREENING 1949 FLEX SIG - COLON CA SCREENING 1949 HEPATITIS C SCREENING 01/04/1967 DTAP/TDAP/TD VACCINES (1 - Tdap) 01/09/1968 PNEUMOCOCCAL VACCINE 50+ (1 of 1 - PCV) 1999 ZOSTER VACCINE (1 of 2) 1999 COVID-19 VACCINE ( - 2023-2 5 season) 2023 INFLUENZA VACCINE (#1) 2023 Respiratory Syncytial Virus (RSV) Vaccine Pt: or over 60 yrs (1 - 1-dose 75+ series) 01/09/2024 DEPRESSION SCREENING 04/28/2024 HEPATITIS B VACCINE Aged Out No longe r eligible based on patient's age to complete this topic HIB VACCINE Aged Out No longer eligi ble based on patient's age to complete this topic HPV VACCINE Aged Out No longer eligi ble based on patient's age to complete this topic MENINGOCOCCAL (Group B) VACCINE Aged Out No longer eligible based on patient's age to complete this topic MENINGOCOCCAL VACCINE Aged Out No christiano patti eligible based on patient's age to complete this topic Medical Devices Implanted Type Area [employer] Division Supervisor Device Identifier Shelf Expiration Date Model / Serial / Lot Gary Sut Healicoil Ulbrd 5.5mm Implanted:Qty: 2 on 03/09/2018 by Min Last MD at [facility] Right: Shoulder [employer] 04/30/2022 [id number] / / [id number] Description:Healicoil PK 5.5 MM Suture Gary with Two ULTRABRAID Sutures Gary Sut Multifix S Ult Peek Kntls 5.5 Implanted:Qty: 2 on 03/09/2018 by Min Last MD at [facility] Right: Shoulder [employer] [facility] 11/17/2020 [id number] / / [id number] Care Teams Airline Ticket Agent Relationship Specialty Start Date End Date Blake Bustillo DO [address] [facility] [address] [place] [address] PCP - General Internal Medicine 03/09/18
--- OUTSIDE RECORDS SUMMARY | 2024-06-18 05:05 | XMS_ITS | Referral Summary ---
Author Organization [facility] [address] Address [address] [place] [address] Care Team Providers Care Documentation Coordinator Name Role Phone Leon Weir MD Unavailable [phone] Carey Sosa MD Unavailable Mervin Handley DO Primary Care Provider [phone] Encounters Date Type Department Care Team Description 05/18/2024 Telephone [facility] Medical [facility] Cardiology [address] [place] [address] Sussy Greer NP 04/14/2024 7:30 AM SNOW REMOVER Office Visit [facility] [address] [place] [address] [address] [place] [address] Massiel Montoya, APRIL Encounter for removal of internal fixation device (Primary Dx); Left arm pain 04/05/2024 11:45 AM SNOW REMOVER Office Visit [facility] [address] [place] [address] [address] [place] [address] Dima Terrell MD Left forearm pain (Primary Dx); Left elbow pain 04/01/2024 10:00 AM SNOW REMOVER - 04/01/2024 11:00 AM [facility] Surgery [facility] [address] [place] [address] Dima Terrell MD LEFT ELBOW HARDWARE REMOVAL 04/01/2024 10:44 AM SNOW REMOVER Anesthesia Event [facility] [address] [place] [address] Rip Anderson, Santos Gant MD 04/01/2024 8:14 AM SNOW REMOVER - 04/01/2024 2:03 PM SNOW REMOVER Hospital Encounter [facility] [address] [place] [address] Dima Terrell MD Encounter for removal of internal fixation device [Z47.2] (Primary Dx) Discharge Disposition: Discharge to home or self care 03/29/2024 1:00 PM SNOW REMOVER Pre-Admission Testing [facility] Pre Admit Testing [address] [place] [address] Pre-op testing 03/24/2024 Orders Only [facility] Pre Admit Testing [address] [place] [address] Matilda Gonzalez RN Pre-op testing (Primary Dx) from Last 3 Months Allergies No known active allergies Medications hydroCHLOROthiazid [...] Left arm pain 03/17/2024 No diagnosis on [place] I 05/06/2023 Other chronic pain 05/06/2023 Dizziness [...] (09/17/2021): Added automatically from request for surgery [id number] 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 Patient verbalized understanding. 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 Status post abdominal aortic aneurysm (AAA) repa ir 09/16/2016 Overview (09/20/2016): S/P AAA repair Obstructive sleep apnea syndrome 03/12/2016 Overview (08/08/2016): URIEL on CPAP Ascending aortic aneurysm ([facility]) 09/05/2015 Overview (08/08/2016): Ascending aortic aneurysm Paraseptal emphysema 09/05/2015 Overview (08/08/2016): Paraseptal emphysema Abdominal aortic aneurysm without rupture 2015 Overview (08/08/2016): AAA (abdominal aortic aneurysm) without rupture Aortic root dilatation ([facility]) 07/10/2015 Overview (08/08/2016): Aortic root dilatation Pulmonary function studies abnormal 07/10/2015 Overview (08/08/2016): Abnormal PFTs (pulmonary function tests) Coronary artery disease invo lving cabazon coronary artery of cabazon heart without angina pectoris 05/29/2015 Overview (08/08/2016): 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 with documented spasm [...] 12/27/2014 Overview (08/08/2016): History of tobacco abuse Social History Tobacco Use Types Packs/Day Years [...] on file Legal Sex Male 3:48 AM SNOW REMOVER Gender Identity Male 08/22/2021 10:36 AM CDT Sexual Orientation Straight 01/29/2021 8: 39 PM CDT Occupation Industry Job Start Date Job End Date 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 Not on file Not on file Not on file Last Filed Vital Signs Vital Sign Reading Time Taken Comments Blood Pressure 120/70 04/01/2024 1:30 PM SNOW REMOVER Pulse 63 04/01/2024 1:30 PM SNOW REMOVER Temperature 36.3 C (97.4 F) 04/01/2024 1:00 PM SNOW REMOVER Respiratory Rate 18 04/01/2024 1:30 PM SNOW REMOVER Oxygen Saturation 91% 04/01/2024 1:30 PM SNOW REMOVER Inhaled Oxygen Concentration - - Weight 105 kg (231 lb 6.4 oz) 03/29/2024 12:44 P M SNOW REMOVER Height 180.3 cm (5' 11 ) 03/29/2024 12:44 PM SNOW REMOVER Body Mass Index 32.27 03/29/2024 12:44 PM SNOW REMOVER Plan of Treatment Not on file Goals Goal Patient Goal Type Associated Problems [...] as needed Medical Devices Implanted Type Area Gauger Chief Device Identifier Shelf Expiration Date Model / Serial / Lot Acuity [employer] Inc [id number] Tissue Bone Void Filler Acupac Plus 25cc - [id number] - [id number] Implanted:Qty: 1 on 07/06/2020 by Zenon Mead MD at [facility] Graft N/A: Spine Lumbar Acuity [employer] Inc 09/24/2023 [id number] / [id number] / [id number] Medtronic Sofamor Danek [id number] Infuse 14mm 23mm Absorbable Sponge Sterile Water Syringe Needle - S. - [id number] Implanted:Qty: 1 on 07/06/2020 by Zenon Mead MD at [facility] Graft N/A: Spine Lumbar Medtronic Inc 01/26/2021 [id number] / . / [id number] Vela [employer] Medical 1134.001 Creo Spinal Cap Locking Nonsterile Mis - S. - [id number] Implanted:Qty: 4 on 07/06/2020 by Zenon Mead MD at [facility] Other - see comments N/A: Spine Lumbar Globus Medical 07/06/2020 1134.0010 / . / Globus Medical 193.122 Rise [id number] 10d Lordotic Spacer Spinal Nonsterile - S. - [id number] Implanted:Qty: 1 on 07/06/2020 by Zenon Mead MD at [facility] Other - see comments N/A: Spine Lumbar [employer] 07/06/2020 193.122 / . / Globus Medical 1134.7055 Creo Mis 5.5mm 55mm Curve Erich Spinal Titanium - S. - [id number] Implanted:Qty: 2 on 07/06/2020 by Zenon Mead MD at [facility] Other - see comments N/A: Spine Lumbar [employer] 07/06/2020 1134.7055 / . / Glob[employer] Medical 1134.01 Creo Mis 30mm Modular Polyaxial Tulip Head Screw Bone - S. - [id number] Implanted:Qty: 4 on 07/06/2020 by Zenon Mead MD at [facility] Screw N/A: Spine Lumbar [employer] 07/06/2020 1134.0100 / . / Globus Medical 1067.4650 Creo 6.5mm 50mm Cannulated Modular Spine Screw Bone - S. - [id number] Implanted:Qty: 4 on 07/06/2020 by Zenon Mead MD at [facility] Screw N/A: Spine Lumbar [employer] 07/06/2020 1067.4650 / . / Allosource Cubes Graft 15ml Bone Cancellous [id number] - [id number] Implanted:Qty: 1 on 10/25/2021 by Chevy Teresa MD at [facility] N/A: Lumbar-S acral Spine Allosource 11/22/2025 [id number] / / [id number] Wedge [employer] Carlene Dp-1011 Duragen Plus 1x1in Patch Resorbable Suturable Cranial Dura Graft - [id number] Implanted:Qty: 1 on 10/25/2021 by Chevy Teresa MD at [facility] N/A: Lumbar-S acral Spine Integra Shop 9 [employer] ([place] Carlene [id number] / / Depuy Synthes Spine Expedium 6.5mm 50mm Polyaxial Spine Screw Bone Titanium 5.5mm Erich [id number] - [id number] Implanted:Qty: 2 on 10/25/2021 by Chevy Teresa MD at [facility] N/A: Lumbar-S acral Spine Depuy Synthes Spine [id number] / / Depuy Synthes Spine Expedium 6.5mm 45mm Polyaxial Spine Screw Bone Titanium 5.5mm Erich [id number] - [id number] Implanted:Qty: 6 on 10/25/2021 by Chevy Teresa MD at [facility] N/A: Lumbar-S acral Spine Depuy Synthes Spine [id number] / / Depuy Synthes Spine Expedium 1 Inner Monoaxial Spine Screw Set Titanium [id number] - [id number] Implanted:Qty: 8 on 10/25/2021 by Chevy Teresa MD at [facility] N/A: Lumbar-S acral Spine Depuy Synthes Spine [id number] / / Depuy Synthes Spine Expedium Od5.5 Mm L90 Mm Line Prebent Erich Spinal Titanium Nonsterile [id number] - [id number] Implanted:Qty: 1 on 10/25/2021 by Chevy Teresa MD at [facility] N/A: Lumbar-S acral Spine Depuy Synthes Spine [id number] / / Depuy Synthes Spine Substitute Bone Graft Fibergraft Gps Medium Putty 6cc [id number] - [id number] Implanted:Qty: 1 on 10/25/2021 by Chevy Teresa MD at [facility] N/A: Lumbar-S acral Spine Depuy Synthes Spine [id number] 10/26/2023 [id number] / / [id number] Depuy Synthes Spine Cage Post Spinal Lumbar 8 Degree Tlif Curved Eit Plif [id number] Titanium [id number] - [id number] Implanted:Qty: 1 on 10/25/2021 by Chevy Teresa MD at [facility] N/A: Lumbar-S acral Spine Depuy Synthes Spine [id number] 04/27/2023 [id number] / / [id number] Explanted Type Area Gauger Chief Device Identifier Shelf Expiration Date Model / Serial / Lot Medtronic Inc Vectris 5mm 60cm 1x8 Electrode Trial Lead Neurostimulator [id number] - Sn/A - [id number] Implanted:Qty: 1 on 07/09/2023 by Carey Sosa MD at [facility] Explanted:Qty: 1 Spinal Cord Stimulator Back Medtronic Inc 06/06/2027 [id number] / N/A / [id number] Medtronic Inc Vectris 5mm 60cm 1x8 Electrode Trial Lead Neurostimulator [id number] - Sn/A - [id number] Implanted:Qty: 1 on 07/09/2023 by Carey Sosa MD at [facility] Explanted:Qty: 1 Spinal Cord Stimulator Back Medtronic Inc 06/20/2027 [id number] / N/A / [id number] Screws Explanted:Qty: 3 on 04/01/2024 by Dima Terrell MD at [facility] Left: Elbow Other 0 / / Description:Explanted 3 scre ws from elbow Procedures Procedure Name Priority Date/Time Associated Diagnosis Comments TX CAST SUP LNG ARM SPLINT FBRG Routine 04/05/2024 1:37 PM SNOW REMOVER Left elbow pain TX APPLICATION LONG ARM SPLINT SHOULDER HAND Routine 04/05/2024 1:37 PM SNOW REMOVER Left elbow pain FL FLUOROSCOPY < 1 HOUR IP Routine 04/01/2024 11:44 AM SNOW REMOVER TX AN PROCEDURE PLACEHOLDER Routine 04/01/2024 10:55 AM SNOW REMOVER TX AN ELECTIVE SUPRAGLOTTIC AIRWAY Routine 04/01/2024 10:55 AM SNOW REMOVER REMOVAL HARDWARE - UPPER EXTREMITY 04/01/2024 10:44 AM SNOW REMOVER Encounter for removal of internal fixation device Left elbow pain Case Notes LT ELBOW HARDWARE REMOVAL *SYNTHES UNIVERSAL SCREW REMOVAL SET* Special Needs SYNTHES UNIVERSAL SCREW REMOVAL SET EGFR Routine 03/29/2024 12:59 PM SNOW REMOVER Pre-op testing BASIC METABOLIC PANEL Routine 03/29/2024 12:59 PM SNOW REMOVER Pre-op testing CBC WITHOUT DIFFERENTIAL Routine 03/29/2024 12:59 PM SNOW REMOVER Pre-op testing ECG 12-LEAD Routine 03/29/2024 12:52 PM SNOW REMOVER Pre-op testing CT ABDOMEN W CONTRAST Schedule Routine, Read Routine (OP Routine) 08/24/2021 9:49 AM CDT Hepatic cyst from Last 3 Months or Most Recently Relevant to Health Maintenance Results * TX APPLICATION LONG ARM SPLINT SHOULDER HAND, TX CAST SUP LNG ARM SPLINT FBRG (04/05/2024 1:37 PM SNOW REMOVER) Narrative Dima Terrell MD - 04/05/2024 1:37 PM SNOW REMOVER Dima Terrell MD 04/05/2024 1:37 PM Ortho [...] procedure: Tolerated well, no immediate complications STATIC us Dima Terrell MD IN CLINIC/BEDSIDE ORDERA BLES Final Result * FL Fluoroscopy < 1 Hour (04/01/2024 11:44 AM SNOW REMOVER) Narrative [facility] - 04/01/2024 11:47 AM SNOW REMOVER The images from this study are not interpreted by Radiology. Please refer to the physician's procedure / OR operative note. Dima Terrell MD IMG FLUOROSCOPY PROCEDUR ES Final Result RAD_CLARIO_MHB_MHE * TX AN ELECTIVE SUPRAGLOTTIC AIRWAY, TX AN PROCEDURE PLACEHOLDER (04/01/2024 10:55 AM SNOW REMOVER) Prosper Lew CRNA - 04/01/2024 10:55 AM SNOW REMOVER Prosper Whitaker CRNA 04/01/2024 10:55 AM Airway Patient location: OR Urgency: elective Indications for airway management: anesthesia Difficult airway: no Staff: Supervising provider: Rpi Anderson DO Placed by: MASTER BREWER: Prosper Whitaker CRNA Emergent airway documentation: Risks [...] R esult * eGFR (03/29/2024 12:59 PM SNOW REMOVER) eGFR 63 >=60 mL/min/1. 73 m2 Comment: [...] was last reviewed 2021. Testing performed by: [address] [address] Blood 03/29/2024 12:5 9 PM SNOW REMOVER 03/29/2024 1:21 PM SNOW REMOVER us Prosper Nichols MD LAB BLOOD ORDERABL ES Final Result [facility] [address] [facility] Department [place] [address] * (ABNORMAL) CBC without differential (03/29/2024 12:59 PM SNOW REMOVER) WBC 7.9 3.8 - 9.9 K/cumm Comment:Testing performed by : [address] [address] Hgb 14.1 13.0 - 17.5 g/dL [facility]ANT Comment:Testing performed by : [address] [address] Hct 44.0 38.9 - 50.3 % BRYANT Comment:Testing performed by : [address] [address] Plt 253 150 - 400 K/cumm BRYANT Comment:Testing performed by : [address] [address] MPV 10.8 9.1 - 12.3 fL [facility] BLANK Comment:Testing performed by : [address] [address] RBC 5.99(H) 4.30 - 5.80 M/cumm BRYANT Comment:Testing performed by : [address] [address] MCV 73.5(L) 81.3 - 96.4 fL [facility] BLANK Comment:Testing performed by : [address] [address] MCH 23.5(L) 27.1 - 33.3 pg [facility] BLANK Comment:Testing performed by : [address] [address] MCHC 32.0(L) 32.3 - 35.7 g/dL [facility] BLANK Comment:Testing performed by : [address] [address] RDW CV 21.0(H) 11.1 - 14.9 % [facility] BLANK Comment:Testing performed by : [address] [address] RDW SD 50.6(H) 35.7 - 48.1 fL [facility] BLANK Comment:Testing performed by : [address] [address] NRBC abs 0.00 0.00 - 0.01 K/cumm [facility] BLANK Comment:Testing performed by : [address] [address] Blood 03/29/2024 12:5 9 PM SNOW REMOVER 03/29/2024 1:21 PM SNOW REMOVER us Prosper Nichols MD LAB BLOOD ORDERABL ES Final Result [facility] [address] Department [place] [address] * Basic metabolic panel (03/29/2024 12:59 PM SNOW REMOVER) Sodium 136 135 - 145 mmol/L Comment:Testing performed by : [address] [address] Potassium, pl 4.1 3.3 - 4.9 mmol/L [facility] BLANK Comment:Testing performed by : [address] [address] Chloride 100 97 - 110 mmol/L BR[facility]ANT Comment:Testing performed by : [address] [address] CO2 24 22 - 32 mmol/L [facility] BLANK Comment:Testing performed by : [address] [address] Anion gap 12 2 - 15 mmol/L [facility] BLANK Comment:Testing performed by : [address] [address] BUN 22 6 - 25 mg/dL [facility] BLANK Comment:Testing performed by : [address] [address] Creatinine 1.20 0.80 - 1.30 mg/dL [facility] Comment:Testing performed by : [address] [address] Glucose 100 70 - 199 mg/dL BRYANT [...] was last revised 2022. Testing performed by: [address] [address] Calcium 9.4 8.5 - 10.3 mg/dL [facility]ANT Comment:Testing performed by : [address] [address] Blood 03/29/2024 12:5 9 PM SNOW REMOVER 03/29/2024 1:21 PM SNOW REMOVER us Prosper Nichols MD LAB BLOOD ORDERABL ES Final Result [facility] [address] [facility] Department [place] [address] * ECG 12 lead (03/29/2024 12:52 PM SNOW REMOVER) Pathologist [facility] Ventricular Rate EKG/Min 78 BPM [facility] Atrial Rate 78 BPM [facility] TX-Interval (MSEC) 168 ms [facility] QRS-Interval (MSEC) 92 ms [facility] QT-Interval (MSEC) 350 ms [facility] QTc 399 ms [facility] P [place] 9 degrees [facility] R [place] -24 degrees [facility] T [place] 3 degrees [facility] Diagnosis Normal sinus rhythm Minimal voltage criteria for LVH, may be normal variant Inferior infarct Old Abnormal ECG When compared with ECG of 29-JUN-2020 12:51, Inferior infarct is now Present Confirmed by SULTAN OROURKE M.D. ([id number]) on 03/29/2024 4:28:19 PM [facility] 03/29/2024 12:5 2 PM SNOW REMOVER 03/29/2024 4:28 PM SNOW REMOVER us Prosper Nichols MD ECG ORDERABLES Fi nal Result [facility] * CT Abdomen W Contrast (08/24/2021 9:49 [...] Forrest M.D. , PHD Jm Carlos MD IMG CT PROCEDURES Leslie l Result from Last 3 Months or Most Recently Relevant to Health Maintenance Insurance AETNA MEDICARE GOLD AETNA MEDICARE GOLD Advance Directives For more information, please contact: [phone] * Full Code (Latest Code Status on File) Date Activated Date Inactivated Comments 10/25/2021 8:19 PM 10/28/2021 6:25 PM * Full Code Date Activated Date Inactivated Comments 07/06/2020 5:18 PM 07/07/2020 7:26 PM Care Teams Documentation Coordinator Relationship Specialty Start Date End Date Mervin Handley DO [address] [place], [place] [id number] PCP - General Internal Medicine 03/17/24 Leon Weir MD Forestry Professor Cardiology 06/21/20 Carey Sosa MD [address] [facility] [address] Consulting Physician Pain Management 03/11/23
--- OUTSIDE RECORDS SUMMARY | 2024-06-18 05:06 | XMS_ITS | Encounter Summary ---
Author Organization [facility] Address [address] [place] [address] Care Team Providers Care Insole Rounder Name Role Phone Blake Bustillo DO Primary Care Provider [phone] Encounter Details Date Type Department Care Team (Late st Contact Info) Description 06/16/2024 External Device Data [facility]STRACTION Provider, Abstract NO ADDRESS ON FILE Social History Tobacco Use Types Packs/Day Years Used Date Smoking Tobacco: Former Cigarettes 1 15 1 05/07/1983 - 03/07/1999 Smokeless Tobacco: Never Comments:quit 15 years ago Alcohol Use Standard Drinks/Week Comments No 0 (1 standard drink = 0.6 oz pur e alcohol) Sex and Gender Information Value Date Recorded Sex Assigned at Not on file 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 Gender Identity Not on file Sexual Orientation Not on file Occupation Industry Job Start Date Job End Date Not on file Not on file Not on file Not on file documented as of this encounter Plan of Treatment Upcoming Encounters Date Type Department Care Team (Late st Contact Info) Description 08/26/2024 11:00 AM CDT Office Visit [facility] At [address] [place] [address] Tyler Grossman MD [address] [place] [address] [address] [place] [address] documented as of this encounter Visit Diagnoses Not on filedocumented in this encounter Care Teams Insole Rounder Relationship Specialty Start Date End Date Blake Bustillo DO [address] [facility] [address] [place] [address] PCP - General Internal Medicine 01/25/14 documented as of this encounter
--- OUTSIDE RECORDS SUMMARY | 2024-06-18 05:06 | XMS_ITS | Continuity of Care Document ---
Author Organization [facility] Address 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 [address] [facility] [address], [place], [place], [id number]. tel:[phone] [facility], [address] [place] [address], [address], tel:[phone] [facility] Complete tear of right rotator cuff 9 Berhane Copeland. [address], [place], [place], [id number]. tel:[phone] Referring Provider: Blake Jarvis, [address], [place], [address] . tel:[phone] [facility], [address] [place] [address], [address], tel:[phone] [facility] Complete tear of right rotator cuff 8 Isidoro Batista. [address], [place], [address]. tel:[phone] [facility], [address] [facility] [address], [place], [address], [place] tel:[phone] [facility] Peripheral polyneuropathy 8 Berhane Copeland. [address], [place], [place], [id number]. tel:[phone] [facility], [address] [place] [address] 200, [place], [address], [place] tel:[phone] [facility] No Information 8 Berhane Copeland. [address], [place], [place], [id number]. tel:[phone] [facility], [address] [place] [address] 200, [place], [address], [place] tel:[phone] [facility] Peripheral polyneuropathy 8 Sabrina Burnett. [address] [facility], [place], [place], [address]. tel:[phone] [facility], [address], [place], [address], [place] tel:[phone] [facility] Complete tear of right rotator cuffImpingemen t syndrome of right shoulderStrain of muscle(s) and tendon(s) of the rotator cuff of right shoulder, initial encounter 8 Berhane Copeland. [address], [place], [place], [id number]. tel:[phone] OFFICE/OUTPA TIENT VISIT EST [facility], [address] [place] [address] 200, [place], [address], [place] tel:[phone] [facility] Complete tear of right rotator cuff 8 Berhane Copeland. [address], [place], [place], [address]. tel:[phone] Referring Provider: Min Rosales, [address], [place], [address]. tel:[phone] OFFICE/OUTPA TIENT VISIT [facility], [address], [address], [place] tel:[phone] [facility] Trochanteric bursitis of both hipsTrochanter ic bursitis, left hipSpinal stenosis of lumbar region without neurogenic claudication Oct-2 5- 8 Sabrina Burnett. [address] [facility], [place], [place], [address]. tel:[phone] OFFICE/OUTPA TIENT VISIT [facility], [address] [place] [address], [address], [place] tel:[phone] [facility] Complete tear of right rotator cuff Oct-1 8- 8 Berhane Copeland. [address] [facility] [address], [place], [place], [address]. tel:[phone] OFFICE/OUTPA TIENT VISIT [facility], [address] [place] [address], [address], [place] tel:[phone] [facility] Body mass index (BMI) 30.0-30.9, adultSpinal stenosis of lumbar region without neurogenic claudicationIm pingement syndrome of right shoulderSpondy losis of lumbosacral region without myelopathy or radiculopathy Oct-1 - 8 Sabrina Burnett. [address] [facility], [place], [place], [address]. tel:[phone] OFFICE/OUTPA TIENT VISIT [facility], [address] [place] [address], [address], [place] tel:[phone] [facility] Primary osteoarthritis of right kneeSpinal stenosis of lumbar region without neurogenic claudication Oct-0 2-201 8 Benja Dickerson. [address] [place], [place], [address]. tel:[phone] OFFICE/OUTPA TIENT VISIT [facility], [address] [address], [place], [address], [place] tel:[phone] [facility] Primary osteoarthritis of right kneeSpinal stenosis of lumbar region, unspecified whether neurogenic claudication present [address] [facility], [place], [place], [id number]. tel:[phone] [facility], [address] [place] [address], [place], [address], [place] tel:[phone] [facility] [place] PO TSA R SHOULDER (chief complaint) Status post arthroscopy of shoulder Jul- 8 Berhane Copeland. [address], [place], [place], [address]. tel:[phone] [facility], [address] [place] [address], [address], [place] tel:[phone] [facility] [place] Status post arthroscopy of shoulder 8 Berhane Copeland. [address], [place], [place], [address]. tel:[phone] [facility], [address] [place] [address], [place], [address], [place] tel:[phone] [facility] [place] PO RT SHOULDER SCOPE W/RCR (chief complaint) Body mass index (BMI) 29.0-29.9, adultStatus post arthroscopy of shoulder 8 Berhane Copeland. [address], [place], [place], [address]. tel:[phone] OFFICE/OUTPA TIENT VISIT EST [facility], [address] [place] [address], [place], [address], [place] tel:[phone] [facility] [place] Incomplete tear of right rotator cuffImpingemen t syndrome of right shoulderBiceps tendonitis, right 8 Berhane Copeland. [address], [place], [place], [address]. tel:[phone] Referring Provider: Blake Jarvis, [address], [place], [address] . tel:[phone] [facility], [address], [address], [place] tel:[phone] [facility] Incomplete tear of left rotator cuffIncomplete tear of right rotator cuffComplete tear of right rotator cuff 8 Berhane Copeland. [address], [place], [place], [address]. tel:[phone] OFFICE/OUTPA TIENT VISIT [facility], [address], [address], [place] tel:[phone] [facility] Incomplete tear of right rotator cuff 8 Benja Dickerson. [address] [place] [address], [id number]. tel:[phone] Referring Provider: Tuan Yousif, [address] [place] [address] [address], [place], [address]. tel:[phone] OFFICE/OUTPA TIENT VISIT [facility], [address] [place] [address], [address], [place] tel:[phone] [facility] Primary osteoarthritis of right kneeImpingemen t syndrome of right shoulderStatus post left elbow joint replacement 7 Benja Dickerson. [address] [place] [address], [id number]. tel:[phone] [facility], [address] [place] [address], [address], [place] tel:[phone] [facility] Primary osteoarthritis of right knee 7 Jamila Benitez. [address] [place] [address] [address] [facility], [place], [place], [address]. tel:[phone] OFFICE/OUTPA TIENT VISIT [facility], [address] [place] [address], [place], [address], [place] tel:[phone] [facility] Primary osteoarthritis of right kneeRight shoulder tendonitisSpra in of left wrist, initial encounter 7 Benja Dickerson. [address] [place], [place], [address]. tel:[phone] OFFICE/OUTPA TIENT VISIT EST [facility], [address] [place] [address], [address], [place] tel:[phone] [facility] Biceps tendonitis, rightTrochante yanni bursitis of both hipsTrochanter ic bursitis, left hip 0 7 Jamila Eli. [address] [address], [place], [place], [address]. tel:[phone] OFFICE/OUTPA TIENT VISIT [facility], [address] [place] [address], [address], [place] tel:[phone] [facility] Flavio hip (chief complaint) Trochanteric bursitis of right hipTrochanteri c bursitis of left hip 5 Jamila Benitez. [address], [id number]. tel:[phone] OFFICE/OUTPA TIENT VISIT [facility], [address] [place] [address], [address], [place] tel:[phone] [facility] Follow Up of PO SHOULDER (chief complaint) Rotator cuff tear 5 Jamila Eli. [address] [address], [place], [place], [address]. tel:[phone] OFFICE/OUTPA TIENT VISIT [facility], [address] [place] [address], [address], [place] tel:[phone] [facility] Follow Up of Lt shoulder (chief complaint) Biceps muscle tear 5 Benja Dickerson. [address] [place] [address], [id number]. tel:[phone] [facility], [address] [place] [address] [place], [address], [place] tel:[phone] [facility] Rotator cuff tear 5 Jamila Eli. [address] [address], [place], [place], [address]. tel:[phone] [facility], [address] [address], [place], [address], [place] tel:[phone] [facility] Rotator cuff tear 5 Jamila Eli. [address] [address], [place], [place], [address]. tel:[phone] [facility], [address] [place] [address], [place], [address], [place] tel:[phone] [facility] Lt RTC repair (chief complaint) Rotator cuff tear 4 Jamila Eli. [address] [address], [place], [place], [address]. tel:[phone] [facility], [address] [place] [address], [place], [address], [place] tel:[phone] [facility] right biceps (chief complaint) Biceps muscle tear 4 Raoul Day. [address] [facility], [place], [place], [address]. tel:[phone] [facility], [address] [place] [address], [place], [address], [place] tel:[phone] [facility] Rotator cuff tear 4 Jamila Maldonadon. [address] [address], [place], [place], [address]. tel:[phone] [facility], [address] [place] [address], [place], [address], [place] tel:[phone] [facility] P/O R DISTAL BICEPS (chief complaint) Biceps muscle tear 4 Lei [address], [place], [place], [address], [place]. tel:[phone] [facility], [address] [address], [place], [address], [place] tel:[phone] [facility] 1st post op distal biceps repair (chief complaint) Other and unspecified injury to other specified sites, including multiple Oct-2 1-201 4 Lei Quesada. [address], [place], [place], [address], [place]. tel:[phone] [facility], [address] [address], [place], [address], [place] tel:[phone] [facility] Shoulder capsulitis Sep-2 3-201 4 Benja Dickerson. [address] [place] [address], [id number]. tel:[phone] OFFICE/OUTPA TIENT VISIT [facility], [address] [place] [address], [address], [place] tel:[phone] [facility] Biceps muscle tear Sep-2 3-201 4 Raoul Day. [address] [place], [place], [address]. tel:[phone] OFFICE/OUTPA TIENT VISIT [facility], [address] [place] [address], [address], [place] tel:[phone] [facility] Elbow tendonitis Sep-0 8-201 4 Jamila Benitez. [address], [id number]. tel:[phone] OFFICE/OUTPA TIENT VISIT [facility], [address], [address], [place] tel:[phone] [facility] Shoulder capsulitis Eliseo-2 3-201 4 Benja Dickerson. [address] [place] [address], [id number]. tel:[phone] OFFICE/OUTPA TIENT VISIT [facility], [address] [place] [address], [address], [place] tel:[phone] [facility] Shoulder capsulitis 4 Benja Dickerson. [address] [place] [address], [id number]. tel:[phone] Family History Family Member Type Diagnosis Age At Onset Mother Problem (finding) Mother Problem (finding) hypertension Son Problem (finding) Alive and well Immunizations Vaccine Date Status Comments Pneumo (2 yrs or older)(PPV) administered Source: Other Provider Payers Payer name Insurance type Covered green party ID Authoriza tion(s) No Information Social History [...] shoulder Appointment date/timeframe: 04/24/2017 ordered Referral Ordered: RADEX KNE COMPL 4/MORE VIEWS RT ordered Referral Ordered: Synvisc or Synvisc-One RT knee ordered Referral Ordered: RADEX F/ARM 2 VIEWS LT ordered Referral Ordered: RADEX QUINTON COMPL MINIMUM 2 VIEWS RT ordered Referral Ordered: [facility]EX PELVIS 1/2 VIEWS ordered Referral Ordered: RADEX HIP UNI 1 VIEW LT ordered Referral Ordered: RADEX HIP UNI 1 VIEW RT ordered Referral Ordered: MRI ANY JT UXTR C-MATRL LT shoulder Appointment date/timeframe: 03/04/2014 ordered Referral Ordered: RADEX ELBW 2 VIEWS RT ordered Referral Ordered: MRI ANY JT UXTR C-MATRL RT Appointment date/timeframe: 01/15/2014 ordered Referral Ordered: RADEX QUINTON COMPL MINIMUM [...] Information Instructions Date Instruction Additional Infor lauren Apply ice as tolerated. Related to Complete tear of right rotator cuff Home exercise program Related to Complete tear of right rotator cuff Activity as tolerated. Related t o Status post arthroscopy of right shoulder Watch for signs of infection Rel ated [...] Related to Status post arthroscopy of shoulder Activity as [...] Related to Primary osteoarthritis of right knee Home exercise program Related to Sprain of left wrist, initial encounter Activity as tolerated Related to Sprain of left wrist, initial encounter Activity as tolerated Related to Right shoulder tendonitis Elevate extremity above heart. R elated to Sprain of left wrist, initial encounter Immobilize as directed. Related to Sprain of left wrist, initial encounter Apply ice as tolerated. Related to Sprain of left wrist, initial encounter Take medication as directed. Rel ated to Sprain of left wrist, initial encounter immobilize if directed Related t o Primary osteoarthritis of right knee home exercise program Related to Primary osteoarthritis of right knee Elevate extremity above heart. R elated to Right shoulder tendonitis Immobilize as directed. Related to Right shoulder tendonitis Apply ice as tolerated. Related to Right shoulder tendonitis Take medication as directed. Rel ated to Right shoulder tendonitis Home exercise program Related to Right shoulder tendonitis apply heating pad or ice as tolerated Related to Primary osteoarthritis of right knee elevate higher than your heart R elated to Primary osteoarthritis of right knee activity as tolerated Related to Primary osteoarthritis of right knee Elevate extremity above heart. R elated to Trochanteric bursitis, left hip Immobilize as directed. Related to Trochanteric bursitis, left hip Apply ice as tolerated. Related to Trochanteric bursitis, left hip Apply [...]
[2024-06-18 08:45] VITALS: BP 147/73; PULSE 81; RESP 18; TEMP 36.4; O2SAT 97; BMI 32.3
[2024-06-18] MEDS: LACTATED RINGERS 1,000 ML 150 ML IV CONT (09:00)
--- NOTE | 2024-06-18 09:37 | WPDANESEPPF ---
Anes - Initial Pre Proc Eval Procedure: Operation Date: 06/18/24 10:00 Proposed Procedures p Esophagogastroduodenoscopy - Sukhi Dumont MD Date/Time: 06/18/24 09:37 Surgeon: Sukhi Dumont MD Pre Op Diagnosis: GERD,Cough,Dysphagia Patient Data Age: 74 Gender: M Height: 1.78 m Weight: 102.4 kg Last Vital Signs Temp 97.5 F L 06/18/24 08:45 Pulse 81 06/18/24 08:45 Resp 18 06/18/24 08:45 BP 147/73 H 06/18/24 08:45 Pulse Ox 97 06/18/24 08:45 O2 Del Method Room Air 06/18/24 08:45 Allergies Allergy/AdvReac Type Severity Reaction Status Date / Time No Known Allergies Allergy Verified 06/18/24 08:47 Home Medications ?Medication ?Instructions ?Recorded ?Confirmed ?Type atorvastatin 40 mg tablet 40 mg PO HS 04/10/20 06/18/24 History cholecalciferol (vitamin D3) 125 125 mcg PO DAILY 03/19/21 06/18/24 History mcg (5,000 unit) capsule coenzyme Q10 100 mg capsule 200 mg PO DAILY 03/19/21 06/18/24 History (CoQ-10) hydrochlorothiazide 25 mg tablet 25 mg PO QAM 03/19/21 06/18/24 History lisinopril 20 mg tablet 20 mg PO QAM 03/19/21 06/18/24 History multivitamin 1 tablet PO DAILY 03/19/21 06/18/24 History ascorbic acid (vitamin C) 1,000 mg 1 g PO DAILY 06/13/22 06/18/24 History tablet aspirin 81 mg capsule 81 mg PO DAILY 04/15/23 06/18/24 History tamsulosin 0.4 mg capsule 0.4 mg PO DAILY #90 caps 02/24/24 06/18/24 Rx pregabalin 150 mg capsule 150 mg PO TID #90 caps 04/02/24 06/18/24 Rx metoprolol succinate 25 mg 12.5 mg (1/2 x 25 mg) PO DAILY #90 04/15/24 06/18/24 Rx tablet,extended release 24 hr tabs budesonide-formoterol HFA 160 2 puff inhalation Q12H #10.2 grams 05/10/24 06/18/24 Rx mcg-4.5 mcg/actuation aerosol inhaler (Symbicort) omeprazole 40 mg capsule,delayed 40 mg PO DAILY #30 caps 05/20/24 06/18/24 Rx release thiamine HCl (vitamin B1) 100 mg See Rx Instructions .Route 05/31/24 06/18/24 Rx tablet .COMPLEX #90 tabs amlodipine 5 mg tablet (Norvasc) 5 mg PO DAILY #90 tabs 06/09/24 06/18/24 Rx Patient hx anesthesia problems: none Family hx anesthesia problems: none Results Review: All pre-operative results and documents have been reviewed as part of the pre-operative evaluation. [facility] Past Medical History Medical History CAD (coronary artery disease) Lumbar degenerative disc disease Spinal stenosis of lumbar region with neurogenic claudication Rotator cuff tear (~03/09/18) Rt Rotator cuff tear, right (~05/09/17) Abdominal aortic aneurysm (~06/10/16) repaired 2018, thoracic aaa - watching Rotator cuff tear, left (~04/11/14) Tear of right biceps muscle (~02/01/14) History of angina Essential (primary) hypertension Other fatigue Testicular hypofunction Pure hypercholesterolemia, unspecified Thoracic aortic aneurysm without rupture 4.2cm in 2017 Surgical History Surgical History Status post left rotator cuff repair 08/30/22 History of sigmoidoscopy 06/19/22 Proctosigmoidoscopy to 15 cm, transanal excision of rectal polyp Status post arthroscopy of right knee History of lumbar fusion (~1998) History of elbow surgery (~1998) History of AAA (abdominal aortic aneurysm) repair Family History Family History Sibling Hypertension Patient's brother is in good health Family history of malignant neoplasm of breast in first degree relative Family history of malignant neoplasm of breast Diabetes mellitus Mother Diabetes mellitus, Onset Age: 83 Family history of cardiovascular disease, Onset Age: 83 Father Malignant neoplasm of prostate Patient's father is in good health Social History Social History Smoking packs per day: 1 Smoking cigarettes per day: 20.0 Years smoked: 25 Smoking pack-years: 25.00 Smoking status: Former smoker Tobacco type: cigarettes Second hand tobacco smoke exposure: No Smoking end date: 04/28/97 Additional smoking assessment comments: quit in 1997 Alcohol intake: current Alcohol use details: STATES SOCIAL DRINKER - QUIT MANY YEARS AGO Substance use: never Substance use type: does not use Do You Feel Safe in your Home?: Yes Lack of Transportation: No Lack of Food: Never True Current Housing: I Have Housing Concerned About Future Housing: No Difficulty Paying Gas/Electric Bills: Decline to Answer Difficulty Paying for Meds: Decline to Answer Currently Unemployed: No Education: High School Diploma/GED Difficulty w/ Childcare or Family Care: Decline to Answer Living arrangements: with family Additional living arrangements comments: Spiritual care concerns: No Anes - Eval Final PreProcedure Day of Procedure 06/18/24 09:37 Patient weight: obese Lungs: normal air movement Airway: Mallampati scale class II Neurological: alert and oriented Last oral intake: >/= 8 hours ASA classification: III Emergent: no Anesthetic plan: proceed Anesthesia type and monitoring: general GIVS and standard monitoring Results Review: All pre-operative results and documents have been reviewed as part of the pre-operative evaluation. HTN, hyperlipidemia, URIEL on CPAP. Hx of dysphagia. Informed Consent: The patient's anesthetic plan and its attendant risks and benefits were discussed with the patient/family/POA. Questions were solicited and answers provided to the satisfaction of the patient/family/POA.
--- NOTE | 2024-06-18 10:18 | PM.IMHP ---
H&P: HPI History of Present Illness Date/Time: 06/18/24 10:18 Chief Complaint: dysphagia Narrative: this patient has been having dysphagia to pills and solid food all his life, and apparently has been recently getting worse. He endorses occasional heartburn and takes omeprazole 20 mg q.d.. He is referred for EGD. Review of Systems Review of Systems: All systems reviewed & are unremarkable except as noted in HPI and below PMFSH Past Medical History Medical History CAD (coronary artery disease) Lumbar degenerative disc disease Spinal stenosis of lumbar region with neurogenic claudication Rotator cuff tear (~03/09/18) Rt Rotator cuff tear, right (~05/09/17) Abdominal aortic aneurysm (~06/10/16) repaired 2018, thoracic aaa - watching Rotator cuff tear, left (~04/11/14) Tear of right biceps muscle (~02/01/14) History of angina Essential (primary) hypertension Other fatigue Testicular hypofunction Pure hypercholesterolemia, unspecified Thoracic aortic aneurysm without rupture 4.2cm in 2017 Surgical History Surgical History Status post left rotator cuff repair 08/30/22 History of sigmoidoscopy 06/19/22 Proctosigmoidoscopy to 15 cm, transanal excision of rectal polyp Status post arthroscopy of right knee History of lumbar fusion (~1998) History of elbow surgery (~1998) History of AAA (abdominal aortic aneurysm) repair Family History Family History Sibling Hypertension Patient's brother is in good health Family history of malignant neoplasm of breast in first degree relative Family history of malignant neoplasm of breast Diabetes mellitus Mother Diabetes mellitus, Onset Age: 83 Family history of cardiovascular disease, Onset Age: 83 Father Malignant neoplasm of prostate Patient's father is in good health Social History Social History Smoking packs per day: 1 Smoking cigarettes per day: 20.0 Years smoked: 25 Smoking pack-years: 25.00 Smoking status: Former smoker Tobacco type: cigarettes Second hand tobacco smoke exposure: No Smoking end date: 04/28/97 Additional smoking assessment comments: quit in 1997 Alcohol intake: current Alcohol use details: STATES SOCIAL DRINKER - QUIT MANY YEARS AGO Substance use: never Substance use type: does not use Do You Feel Safe in your Home?: Yes Lack of Transportation: No Lack of Food: Never True Current Housing: I Have Housing Concerned About Future Housing: No Difficulty Paying Gas/Electric Bills: Decline to Answer Difficulty Paying for Meds: Decline to Answer Currently Unemployed: No Education: High School Diploma/GED Difficulty w/ Childcare or Family Care: Decline to Answer Living arrangements: with family Additional living arrangements comments: Spiritual care concerns: No Meds Home Medications and Allergies Home Medications ?Medication ?Instructions ?Recorded ?Confirmed ?Type atorvastatin 40 mg tablet 40 mg PO HS 04/10/20 06/18/24 History cholecalciferol (vitamin D3) 125 125 mcg PO DAILY 03/19/21 06/18/24 History mcg (5,000 unit) capsule coenzyme Q10 100 mg capsule 200 mg PO DAILY 03/19/21 06/18/24 History (CoQ-10) hydrochlorothiazide 25 mg tablet 25 mg PO QAM 03/19/21 06/18/24 History lisinopril 20 mg tablet 20 mg PO QAM 03/19/21 06/18/24 History multivitamin 1 tablet PO DAILY 03/19/21 06/18/24 History ascorbic acid (vitamin C) 1,000 mg 1 g PO DAILY 06/13/22 06/18/24 History tablet aspirin 81 mg capsule 81 mg PO DAILY 04/15/23 06/18/24 History tamsulosin 0.4 mg capsule 0.4 mg PO DAILY #90 caps 02/24/24 06/18/24 Rx pregabalin 150 mg capsule 150 mg PO TID #90 caps 04/02/24 06/18/24 Rx metoprolol succinate 25 mg 12.5 mg (1/2 x 25 mg) PO DAILY #90 04/15/24 06/18/24 Rx tablet,extended release 24 hr tabs budesonide-formoterol HFA 160 2 puff inhalation Q12H #10.2 grams 05/10/24 06/18/24 Rx mcg-4.5 mcg/actuation aerosol inhaler (Symbicort) omeprazole 40 mg capsule,delayed 40 mg PO DAILY #30 caps 05/20/24 06/18/24 Rx release thiamine HCl (vitamin B1) 100 mg See Rx Instructions .Route 05/31/24 06/18/24 Rx tablet .COMPLEX #90 tabs amlodipine 5 mg tablet (Norvasc) 5 mg PO DAILY #90 tabs 06/09/24 06/18/24 Rx Allergies Allergy/AdvReac Type Severity Reaction Status Date / Time No Known Allergies Allergy Verified 06/18/24 08:47 Vital Signs Vital Signs - 24 hr 06/18/24 08:45 Temperature 97.5 F L Pulse Rate 81 Respiratory Rate 18 Blood Pressure 147/73 H Pulse Oximetry 97 Oxygen Delivery Room Air Exam Const: General: cooperative and healthy appearing Resp: Effort & Inspection: normal respiratory effort and able to speak in complete sentences Auscultation: clear to auscultation bilaterally Cardio: Rate: regular rate Rhythm: regular rhythm GI: Inspection: normal to inspection GI Palp: No No hepatosplenomegaly present Auscultation: normal bowel sounds Rectal Exam: deferred Skin: General skin exam: normal color Psych: Appearance: grossly normal Mental Status: mental status grossly normal Assessment and Plan Assessment and plan (1) Dysphagia: Code(s): R13.10 - Dysphagia, unspecified Status: Acute Assessment and Plan: differential diagnosis includes fertility disorders, EOE, Schatzki ring or peptic stricture. The patient is deemed a good candidate for the procedure. Consent signed. Will proceed.
[2024-06-18 10:50] VITALS: BP 154/84; PULSE 87; RESP 17; O2SAT 97
[2024-06-18 11:00] VITALS: BP 152/79; PULSE 86; RESP 16; O2SAT 97
[2024-06-18 11:10] VITALS: BP 148/81; PULSE 86; RESP 18; O2SAT 95
--- NOTE | 2024-06-18 14:45 | SUR.PHASEII ---
Patient called with complaints of severe sore throat/irritation from procedure today 06/18/24. Spoke with Dr. Dumont, and he wishes to call and speak with patient. Provided Dr. Dumont with patient contact number.
--- NOTE | 2024-06-18 15:03 | SUR.PHASEII ---
Per Dr. 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
== END 2024-06-18 11:29 | disposition home or self-care (01) ==
PROVIDERS: PCP Internal Medicine; Referring Provider Nurse Practitioner; Visit Provider Internal Medicine Gastroenterology
PROC: 0DJ08ZZ Inspection of Upper Intestinal Tract, Via Natural or Artificial Opening Endoscopic (ICD-10-PCS; CPT 43239; principal; 2024-06-18 10:00)
DX: K20.90 Esophagitis, unspecified without bleeding (principal); K44.9 Diaphragmatic hernia without obstruction or gangrene; Z87.891 Personal history of nicotine dependence; E66.9 Obesity, unspecified; Z68.32 Body mass index [BMI] 32.0-32.9, adult
CPT/HCPCS: 43239; 88305; J2003; J2704; J7120

== ENCOUNTER 2024-08-21 07:10 | Outpatient (CLI) | payer MEDICARE, SELFPAY ==
--- NOTE | ~2024-08-21 | US_ITS ---
Limited ABDOMINAL ULTRASOUND (Doppler ultrasound interrogation techniques used as needed for this exa m.) Ordering provider: Divya Bejarano APRN History: . Other specified diseases of liver . Comparison: None. FINDINGS: PANCREAS: Normal echotexture and size. PORTAL VEIN: Hepatopedal flow demonstrated. LIVER: Normal size and echotexture. No focal hepatic lesions or perihepatic fluid collections are david ntified. Cystic area measuring 7.7 x 7 x 8 cm is noted. BILIARY DUCTS: No intra or extrahepatic biliary dilation. Common bile duct measures 2.4 mm in diamete r which is normal for patient's age. GALLBLADDER: Normal. No stones, sludge, gallbladder wall thickening or pericholecystic fluid. Negati ve sonographic Quick's sign. IVC: Patent. Right renal cyst. FREE FLUID: None visualized within the upper abdomen. IMPRESSION: Simple Hepatic cyst. Simple Right renal cyst. Otherwise, normal limited abdominal ultrasound. Reviewed, dictated and finalized at location A. IMPRESSION: Simple Hepatic cyst. Simple Right renal cyst. Otherwise, normal limited abdomin al ultrasound.
== END 2024-08-21 07:11 | disposition home or self-care (01) ==
PROVIDERS: PCP Internal Medicine; Visit Provider Nurse Practitioner
DX: K76.89 Other specified diseases of liver (principal); N28.1 Cyst of kidney, acquired
CPT/HCPCS: 76705

== ENCOUNTER 2024-09-30 10:19 | Outpatient (CLI) | payer MEDICARE, SELFPAY ==
--- NOTE | ~2024-09-30 | XR_ITS ---
AP and oblique views of the SI joints CLINICAL HISTORY: Spinal stenosis FINDINGS: SI joints are unremarkable. Spinal fixation hardware noted at the lumbosacral junction. Flavio ateral hip joints are intact. No fracture or dislocation seen. Soft tissues are unremarkable. IMPRESSION: Unremarkable SI joints. Reviewed, dictated and finalized at location . IMPRESSION: Unremarkable SI joints.
--- NOTE | ~2024-09-30 | XR_ITS ---
Lumbosacral Spine: AP and lateral views Clinical History: Pain Findings: There is posterior fusion from L3 through S1 with bilateral rods and transpedicular screws present. There are disc fusion cages at the L4-L5 and L5-S1 disc spaces. There is advanced degenerati ve tearing at L1-L2, L2-L3, L3-L4. There is moderate facet arthropathy. There is 3 mm retrolisthesis of L2 over L3. The sacroiliac joints are normally outlined. Impression: Posterior and interbody fusion from L3 through S1, as detailed above. Advanced degenerative spondylosis, as above. 3 mm retrolisthesis of L2 over L3. Reviewed, dictated and finalized at location M. Impression: Posterior and interbody fusion from L3 through S1, as detailed above. Advanced degenerative spondylosis, as above. 3 mm retrolisthesis of L2 over L3.
== END 2024-09-30 10:20 | disposition home or self-care (01) ==
LOC: MICIMG 10:20
PROVIDERS: PCP Internal Medicine; Visit Provider Nurse Practitioner Adult Health
DX: M48.062 Spinal stenosis, lumbar region with neurogenic claudication (principal); M47.896 Other spondylosis, lumbar region; Z98.1 Arthrodesis status
CPT/HCPCS: 72110; 72202

== ENCOUNTER 2024-10-05 13:21 | Outpatient (CLI) | payer MEDICARE, SELFPAY ==
--- NOTE | ~2024-10-05 | MR_ITS ---
MRI of the lumbar spine Clinical History: Spinal stenosis, back pain Technique: Axial T2-weighted images, and sagittal T1-weighted, T2-weighted, and and T2 fat-sat images were acquired. COMPARISON: 12/03/2019 Findings: There is interval posterior fusion from L3 through S1, bilateral rods and transpedicular sc rews present. There are interbody disc fusion devices at the L4-L5 and L5-S1 disc spaces. Prior poste rior decompression at L4 and L5. There is minimal grade 1 retrolisthesis of L2 over L3. No suspicious bone marrow signal abnormality seen. There are probable type I reactive Modic changes about the L2-L 3 disc space. At L1-L2, there is advanced degenerative disc narrowing. There is mild disc bulge and mild facet arth ropathy. There is no les central canal stenosis. No neural foraminal narrowing. At L2-L3, there is severe degenerative disc narrowing. There is disc extrusion extending inferiorly b ehind the L3 vertebral body. Endotracheal facet arthropathy, contribute to moderate thecal sac compre ssion/spinal canal stenosis. There is moderate bilateral neural foraminal narrowing, left worse than right. At L3-L4, there is severe degenerative disc narrowing. No les spinal canal stenosis despite facet a rthropathy. There is minimal neural foraminal narrowing bilaterally. At L4-L5, there is posterior decompression. No spinal canal stenosis. Possible mild right neural fora angel narrowing. Left neural foramen preserved. At L5-S1, there is posterior decompression. No spinal canal stenosis. Mild to moderate right neural f oraminal narrowing present. Left neural foramen preserved. There is a postoperative seroma posterior to spinal canal at the L4 and L5 levels. Impression: Posterior and interbody fusion from L3 through S1, as detailed above. Severe degenerative spondylosis at L2-L3, as above. [id number] degenerative spondylosis in the remainder of the lumbar spine, as detailed above. Postoperative seroma posteriorly at the L4 and L5 levels. Reviewed, dictated and finalized at [facility]. Impression: Posterior and interbody fusion from L3 through S1, as detailed above. Severe degenerative spondylosis at L2-L3, as above. [id number]-ib-[id number] degenerati ve spondylosis in the remainder of the lumbar spine, as detailed above. Postoperative seroma posteriorly at the L4 and L5 levels.
== END 2024-10-05 13:22 | disposition home or self-care (01) ==
LOC: GOSHIMG 13:21
PROVIDERS: PCP Internal Medicine; Visit Provider Nurse Practitioner Adult Health
DX: M48.062 Spinal stenosis, lumbar region with neurogenic claudication (principal); Z98.1 Arthrodesis status; M43.06 Spondylolysis, lumbar region; Z98.890 Other specified postprocedural states
CPT/HCPCS: 72148

== ENCOUNTER 2024-10-27 09:21 | Outpatient (CLI) | payer MEDICARE, SELFPAY ==
--- NOTE | ~2024-10-27 | CT_ITS ---
CT Scan of the Chest without Contrast: Clinical Indication: Shortness of breath Technique: Contiguous sections were acquired throughout the chest without intravenous contrast. Dose reduction technique was used on this scan by utilizing automated exposure control and iterative recon struction technique. The dose-length product (DLP) was 401.73 mGy-cm. Findings: There is no evidence of any significant mediastinal, hilar or axillary lymphadenopathy. Extensive cor onary artery calcifications are present. There is no evidence of pleural or pericardial effusion. The lungs are clear. No pulmonary nodules or infiltrates are noted. Images through the upper abdomen reveal large hepatic cyst. There is moderate degenerative spondylosi s of the thoracic spine. Impression: No significant abnormalities seen. Reviewed, dictated and finalized at location . Impression: No significant abnormalities seen.
--- OUTSIDE RECORDS SUMMARY | 2024-10-27 09:40 | XMS_ITS | Data Portability ---
Author Organization [facility], Main Office Address [address] [place] [id number] Assessment No assessment recorded. Plan of Treatment [...] By Organization Details Last Modified Time 04/03/2022 [id number] He will follow u p with me about 2 weeks after his c-scope. On today's visit I spent a total of 35 minutes prepping for his visit (reviewing shared records), [id number] with him and documenting. [email or web address] Not available 05/17/2022 07:38:49 Reason for Referral None Reported. Problems Name Problem SNOMED Code Status Onset Date Resolution Date Notes Provider Name and Address Organization Details Recorded Time Pile easily reducible 113833979 Active 2022 Luda Londono MD [address] [place] [address], [phone] 5[facility] 3 07:29:31 External hemorrhoids 00494498 Active 2022 Luda Londono MD [address] [place] [address], [phone] [place] [address] [facility] 3 07:35:29 History of repair of aneurysm of abdominal aorta 377079166 Active 2022 Luda Londono MD [address] [place], [place] [address], [place], [address], [facility] [place] 3 07:36:17 Essential hypertension 99840489 Active 2022 Luda Londono MD [address] [place] [address],[address], [place], [address], [facility] [place] 3 07:36:24 Hyperlipidemia 54047963 Active 2022 Luda Londono MD [address] [place] [address],[address], [place], [address], [facility] [place] 3 07:36:48 Problem Notes None recorded. Procedures Surgical History Date Name Laterality Status Provider Name and Address Organization Details Recorded Time 2 Anoscopy completed Luda Londono MD [address] [place] [address],[address], [place], [address], [facility] [place] 05/17/2022 07:29:20 2 excision of lamina of lumbar vertebra completed Luda Londono MD [address] [place] [address],[address], [place], [address], [facility] [place] 05/17/2022 07:25:17 1 Knee Replacement completed Luda Londono MD [address] [place] [address],[address], [place], [address], [facility] [place] 05/17/2022 07:25:39 1 Knee Replacement completed taylor [email or web address] [facility] [place] 04/03/2022 15:02:27 7 repair of aneurysm of abdominal aorta completed Luda Londono MD [address] [place] [address],[address], [place], [address], [facility] [place] 05/17/2022 07:42:21 2 Colonoscopy completed Luda Londono MD [address] [place] [address],[address], [place], [address], [place] [facility] [place] [facility] 05/17/2022 07:26:25 Imaging Results [...] LastModified Time Tobacco Smoking Status Former Smoker taylor guerrero, [place] [facility] [place] [facility] 04/03/2022 15:01:00 Do You [...] Smoked Tobacco? 20 Information not available 04/03/2022 Sex: Unknown Functional Status Question Answer Note LastModified by Organization D etails LastModified Time Do you or have you ever used any other forms of tobacco or nicotine? No Information not available 04/03/2022 Mental Status None recorded. Family History Relationship Description Onset Age of this Age Resolved Age Notes LastModified by Organization Details LastModified Time Mother Heart disease 83 Not available 2021 15:00:43 Mother Malignant tumor of breast [email or web address] Not available 2022 07:22:57 Father Abdominal aortic aneurysm 77 77 [email or web address] Not available 2022 07:20:46 Father Malignant neoplasm of prostate [email or web address] Not available 2022 07:22:31 Medical History Condition Response High Cholesterol Y Arthritis/Gout Y Reflux/GERD Y Sleep Apnea Y Aneurysm Y Heart Disease Y Hypertension Y Past Encounters Encounter ID Performer Location Encounter Start Date Encounter Closed Date Diagnosis/Indication Diagnosis SNOMED-CT Code Diagnosis ICD10 Code Diagnosis Note [id number] Luda Londono MD Main Office [address] [facility] [address] [place] [address] 04/03/2022 14:28:28 04/03/2022 15:49:35 Pile easily reducible 989830341 K64.1 Stage 2 - 3 internal hemorrhoid [...] of water to maintain daily and soft ([place]into Scale type 4) BM's. I advised it [...] bleeding from the treatment. External hemorrhoids 239 11870 K64.4 These will improve with IRC. He understand s the only way to directly treat external hemorrhoid s/skin tags would be with a surgical excision. He does not wish to pursue this and his hemorrhoid s are not bad enough to warrant surgery. He should continue using the moist baby wipes. History of repair of aneurysm of abdominal aorta 083020628 Z98.62 Essential hypertension 16958278 I10 He takes his medication and follows routinely with his PCP Hyperlipidemia 14017603 E78.5 He takes his medication and follows routinely with his PCP Health Concerns Section Related Observation LastModified by Organization Detai ls LastModified Time None Recorded Concern Status LastModified by Organization Details LastModified Time None Recorded Advance Directives Directive Y: Payers Insurance Date Sequence Insurance Name Policy Number Policy Nieves Covered Member ID Nieves Member ID Guarantor Name 05/17/2022 1 [employer] (MEDICARE REPLACEMENT/ ADVANTAGE - HMO) [id number] Adrien Root [id number] Adrien Root Notes Date Note Type Note [...] long standing daily BM's that are soft ([place]into Scale type 3 - 4). He tries to consistently eat a high fiber diet and drink plenty of water. He does occasionally take 1 - 100 mg docusate. Luda Londono MD [address],[address], [place], [address], [facility] 05/17/2022 07:44:39
--- OUTSIDE RECORDS SUMMARY | 2024-10-27 09:40 | XMS_ITS | Continuity of Care Document ---
Author Organization [facility] Address [address] [facility] [address] [place] [address] Phone Care Team Providers Care Junior Project Coordinator Name Role Phone Min Last MD Unavailable [...] Copied on Encounter OFFICE/OUTPA TIENT VISIT EST [facility], [address], [facility], tel:[phone] [facility] Complete tear of right rotator cuff 9 Berhane Copeland. [address] [facility] [address], [place], [place], [id number]. tel:[phone] [facility], [address] [place] [address], [address], tel:[phone] [facility] Complete tear of right rotator cuff 9 Berhane Copeland. [address] [facility] [address], [place], [place], [id number]. tel:[phone] Referring Provider: Blake Jarvis, [address], [place], [address] . tel:[phone] [facility], [address] [place] [address], [address], tel:[phone] [facility] Complete tear of right rotator cuff 8 Isidoro Batista. [address] [facility] [address], [place], [address]. tel:[phone] [facility], [address] [facility] [address], [place], [address], [place] tel:[phone] [facility] Peripheral polyneuropathy 8 Berhane Copeland. [address] [facility] [address], [place], [place], [id number]. tel:[phone] [facility], [address] [place] [address] 200, [place], [address], [place] tel:[phone] [facility] No Information 8 Berhane Copeland. [address] [facility] [address], [place], [place], [id number]. tel:[phone] [facility], [address] [place] [address] 200, [place], [address], [place] tel:[phone] [facility] Peripheral polyneuropathy 8 Sabrina Burnett. [address] [facility], [place], [place], [id number]. tel:[phone] [facility], [address] [facility] [address], [place], [address], [place] tel:[phone] [facility] Complete tear of right rotator cuffImpingemen t syndrome of right shoulderStrain of muscle(s) and tendon(s) of the rotator cuff of right shoulder, initial encounter 8 Berhane Copeland. [address] [facility] [address], [place], [place], [id number]. tel:[phone] OFFICE/OUTPA TIENT VISIT EST [facility], [address] [place] [address] 200, [place], [address], [place] tel:[phone] [facility] Complete tear of right rotator cuff 8 Berhane Copeland. [address] [facility] [address], [place], [place], [id number]. tel:[phone] Referring Provider: Min Rosales, [address], [place], [address]. tel:[phone] OFFICE/OUTPA TIENT VISIT [facility], [address], [address], [place] tel:[phone] [facility] Trochanteric bursitis of both hipsTrochanter ic bursitis, left hipSpinal stenosis of lumbar region without neurogenic claudication Oct-2 5- 8 Sabrina Burnett. [address] [facility], [place], [place], [id number]. tel:[phone] OFFICE/OUTPA TIENT VISIT [facility], [address] [place] [address], [address], [place] tel:[phone] [facility] Complete tear of right rotator cuff Oct-1 8- 8 Berhane Copeland. [address] [facility] [address], [place], [place], [id number]. tel:[phone] OFFICE/OUTPA TIENT VISIT [facility], [address] [place] [address], [address], [place] tel:[phone] [facility] Body mass index (BMI) 30.0-30.9, adultSpinal stenosis of lumbar region without neurogenic claudicationIm pingement syndrome of right shoulderSpondy losis of lumbosacral region without myelopathy or radiculopathy Oct-1 - 8 Sabrina Burnett. [address] [facility], [place], [place], [id number]. tel:[phone] OFFICE/OUTPA TIENT VISIT [facility], [address] [place] [address], [address], [place] tel:[phone] [facility] Primary osteoarthritis of right kneeSpinal stenosis of lumbar region without neurogenic claudication Oct-0 2-201 8 Benja Dickerson. 5 [place], [place], [id number]. tel:[phone] OFFICE/OUTPA TIENT VISIT [facility], [address] [address], [place], [address], [place] tel:[phone] [facility] Primary osteoarthritis of right kneeSpinal stenosis of lumbar region, unspecified whether neurogenic claudication present 8 Benja Dickerson. [address] [facility], [place], [place], [id number]. tel:[phone] [facility], [address] [place] [address], [place], [address], [place] tel:[phone] [facility] [place] PO TSA R SHOULDER (chief complaint) Status post arthroscopy of shoulder Jul- 8 Berhane Copeland. [address] [facility] [address], [place], [place], [id number]. tel:[phone] [facility], [address] [place] [address], [address], [place] tel:[phone] [facility] [place] Status post arthroscopy of shoulder 8 Berhane Copeland. [address], [place], [place], [address]. tel:[phone] [facility], [address] [place] [address], [place], [address], [place] tel:[phone] [facility] [place] PO RT SHOULDER SCOPE W/RCR (chief complaint) Body mass index (BMI) 29.0-29.9, adultStatus post arthroscopy of shoulder 8 Berhane Copeland. [address], [place], [place], [address]. tel:[phone] OFFICE/OUTPA TIENT VISIT EST [facility], [address] [place] [address], [place], [address], [place] tel:[phone] [facility] [place] Incomplete tear of right rotator cuffImpingemen t syndrome of right shoulderBiceps tendonitis, right 8 Berhane Copeland. [address], [place], [place], [address]. tel:[phone] Referring Provider: Blake Jarvis, [address], [place], [address] . tel:[phone] [facility], [address], [address], [place] tel:[phone] [facility] Incomplete tear of left rotator cuffIncomplete tear of right rotator cuffComplete tear of right rotator cuff 8 Berhane Copeland. [address] [facility] [address], [place], [place], [address]. tel:[phone] OFFICE/OUTPA TIENT VISIT [facility], [address], [address], [place] tel:[phone] [facility] Incomplete tear of right rotator cuff 8 Benja Dickerson. [address] [place] [address], [id number]. tel:[phone] Referring Provider: Tuan Yousif, [address] [place] [address] [address], [place], [address]. tel:[phone] OFFICE/OUTPA TIENT VISIT [facility], [address] [place] [address], [address], [place] tel:[phone] [facility] Primary osteoarthritis of right kneeImpingemen t syndrome of right shoulderStatus post left elbow joint replacement 7 Benja Dickerson. [address] [place] [address], [id number]. tel:[phone] [facility], [address] [place] [address], [address], [place] tel:[phone] [facility] Primary osteoarthritis of right knee 7 Jamila Benitez. [address] [place] [address] [address] [facility], [place], [place], [address]. tel:[phone] OFFICE/OUTPA TIENT VISIT [facility], [address] [place] [address] [address], [address], [place] tel:[phone] [facility] Primary osteoarthritis of right kneeRight shoulder tendonitisSpra in of left wrist, initial encounter 7 Benja Dickerson. [address] [place], [place], [address]. tel:[phone] OFFICE/OUTPA TIENT VISIT EST [facility], [address] [place] [address], [address], [place] tel:[phone] [facility] Biceps tendonitis, rightTrochante yanni bursitis of both hipsTrochanter ic bursitis, left hip 0 7 Jamila Eli. [address] [address], [place], [place], [address]. tel:[phone] OFFICE/OUTPA TIENT VISIT [facility], [address] [place] [address], [address], [place] tel:[phone] [facility] Flavio hip (chief complaint) Trochanteric bursitis of right hipTrochanteri c bursitis of left hip 5 Jamila Benitez. [address], [id number]. tel:[phone] OFFICE/OUTPA TIENT VISIT [facility], [address] [place] [address], [address], [place] tel:[phone] [facility] Follow Up of PO SHOULDER (chief complaint) Rotator cuff tear 5 Jamila Eli. [address] [address], [place], [place], [address]. tel:[phone] OFFICE/OUTPA TIENT VISIT [facility], [address] [place] [address], [address], [place] tel:[phone] [facility] Follow Up of Lt shoulder (chief complaint) Biceps muscle tear 5 Benja Dickerson. [address] [place] [address], [id number]. tel:[phone] [facility], [address] [place] [address] [place], [address], [place] tel:[phone] [facility] Rotator cuff tear 5 Jamila Eli. [address] [address], [place], [place], [address]. tel:[phone] [facility], [address] [address], [place], [address], [place] tel:[phone] [facility] Rotator cuff tear 5 Jamila Eli. [address] [address], [place], [place], [address]. tel:[phone] [facility], [address] [place] [address], [place], [address], [place] tel:[phone] [facility] Lt RTC repair (chief complaint) Rotator cuff tear 4 Jamila Eli. [address] [address], [place], [place], [address]. tel:[phone] [facility], [address] [place] [address], [place], [address], [place] tel:[phone] [facility] right biceps (chief complaint) Biceps muscle tear 4 Raoul Day. [address] [facility], [place], [place], [address]. tel:[phone] [facility], [address] [place] [address], [place], [address], [place] tel:[phone] [facility] Rotator cuff tear 4 Jamila Maldonadon. [address] [address], [place], [place], [address]. tel:[phone] [facility], [address] [place] [address], [place], [address], [place] tel:[phone] [facility] P/O R DISTAL BICEPS (chief complaint) Biceps muscle tear 4 Le[address], [place], [place], [address], [place]. tel:[phone] [facility], [address] [address], [place], [address], [place] tel:[phone] [facility] 1st post op distal biceps repair (chief complaint) Other and unspecified injury to other specified sites, including multiple Oct-2 1-201 4 Lei Quesada. [address], [place], [place], [id number], [place]. tel:[phone] [facility], [address] [address], [place], [address], [place] tel:[phone] [facility] Shoulder capsulitis Sep-2 3-201 4 Benja Dickerson. [address] [place] [address], [id number]. tel:[phone] OFFICE/OUTPA TIENT VISIT [facility], [address] [place] [address], [address], [place] tel:[phone] [facility] Biceps muscle tear Sep-2 3-201 4 Raoul Day. [address] [place], [place], [address]. tel:[phone] OFFICE/OUTPA TIENT VISIT [facility], [address] [place] [address], [address], [place] tel:[phone] [facility] Elbow tendonitis Sep-0 8-201 4 Jamila Benitez. [address], [id number]. tel:[phone] OFFICE/OUTPA TIENT VISIT [facility], [address], [address], [place] tel:[phone] [facility] Shoulder capsulitis Eliseo-2 3-201 4 Benja Dickerson. [address] [place] [address], [id number]. tel:[phone] OFFICE/OUTPA TIENT VISIT [facility], [address] [place] [address], [address], [place] tel:[phone] [facility] Shoulder capsulitis 4 Benja Dickerson. [address] [place] [address], [id number]. tel:[phone] Family History Family Member Type Diagnosis Age At Onset Mother Problem (finding) Mother Problem (finding) hypertension Son Problem (finding) Alive and well Immunizations Vaccine Date Status Comments Pneumo (2 yrs or older)(PPV) administered Source: Other Provider Payers Payer name Insurance type Covered republican ID Authoriza tion(s) No Information Social History [...] Appointment date/timeframe: 04/24/2017 ordered Referral Ordered: RADEX F/ARM 2 VIEWS LT ordered Referral Ordered: Synvisc or Synvisc-One RT knee ordered Referral Ordered: RADEX KNE COMPL 4/MORE VIEWS RT ordered Referral Ordered: RADEX QUINTON COMPL MINIMUM 2 VIEWS RT ordered Referral Ordered: RADEX PELVIS 1/2 VIEWS ordered Referral Ordered: RADEX HIP UNI 1 VIEW RT ordered Referral Ordered: RADEX HIP UNI 1 VIEW LT ordered Referral Ordered: MRI ANY JT UXTR [...] stenosis of lumbar region without neurogenic claudication rest as needed Related to Prima ry osteoarthritis of right knee ice/heat as needed Related to Pr imary osteoarthritis of right knee Activity as tolerated. [...] Related to Primary osteoarthritis of right knee Activity as tolerated Related to Sprain of [...] elated to Primary osteoarthritis of right knee Elevate [...]
--- OUTSIDE RECORDS SUMMARY | 2024-10-27 09:40 | XMS_ITS | Clinical Summary ---
Author Organization [facility] Address [address] [place] [address] Care Team Providers Care Home Health Manager Name Role Phone KenyErichBlakeele Jarvis DO Primary Care Provider [phone] Source Comments [facility],non-owned Affiliates and Associated Physician Practices is amultiple site organization consisting of ambulatory clinics and hospital sitesin [place], [place], [place] and [place]. This disclosure is being madepursuant to the Care Everywhere program and may not contain all information available regarding this patient. Last updated 18.[facility] Allergies No known active allergies Medications * Be aware that medications may not be up to date on this document. Alwaysverify current medications with the patient. lisinopril (PRINIVIL; ZESTRIL) 10 MG tablet Take 10 mg by mouth once daily Active amLODIPine (NORVASC) 10 MG tablet Take 10 mg by mouth once daily Active metoprolol succinate XL 24hr (TOPROL XL) 25 MG tablet Take 25 mg by mouth once daily Active atorvastatin (LIPITOR) 40 MG tablet Take 40 mg by mouth at bedtime Active oxyCODONE-aceta minophen (PERCOCET) 5-325 MG tablet Take 1 tablet [...] at Not on file Legal Sex Male 11:38 AM DIRECTOR FUNERAL Gender Identity Not on file Sexual Orientation Not on file Last Filed Vital Signs Vital Sign Reading Time Taken Comments Blood Pressure 126/72 03/09/2018 6:44 PM DIRECTOR FUNERAL Pulse 77 03/09/2018 6:44 PM DIRECTOR FUNERAL Temperature 36.3 C (97.4 F) 03/09/2018 6:15 PM DIRECTOR FUNERAL Respiratory Rate 16 03/09/2018 6:44 PM DIRECTOR FUNERAL Oxygen Saturation 94% 03/09/2018 6:44 PM DIRECTOR FUNERAL Inhaled Oxygen Concentration - - Weight 96.2 kg (212 lb) 03/09/2018 10:54 AM DIRECTOR FUNERAL Height 180.3 cm (5' 11) 03/09/2018 10:54 AM DIRECTOR FUNERAL Body Mass Index 29.57 03/09/2018 10:54 AM DIRECTOR FUNERAL Plan of Treatment Health Maintenance Due Date [...] VACCINE ( - 2023-2 5 season) 2023 Respiratory Syncytial Virus (RSV) Vaccine Pt: or over 60 yrs (1 - 1-dose 75+ series) 01/09/2024 DEPRESSION SCREENING 04/28/2024 MEDICARE AWV CALENDAR YEAR 2024 INFLUENZA VACCINE (Season Ended) 2024 HEPATITIS B VACCINE Aged Out No longe r eligible based on patient's age to complete this topic HIB VACCINE Aged Out No longer eligi ble based on patient's age to complete this topic HPV VACCINE Aged Out No longer eligi ble based on patient's age to complete this topic MENINGOCOCCAL (Group B) VACC INE SHARED DECISION-MAKING Aged Out No longer eligibl e based on patient's age to complete this topic MENINGOCOCCAL GROUPS A/C/Y/W VACCINE Aged Out No longer eligible b ased on patient's age to complete this topic Medical Devices Implanted Type Area Assistant Produce Manager Device Identifier Shelf Expiration Date Model / Serial / Lot Dornsife Sut Healicoil Ulbrd 5.5mm Implanted:Qty: 2 on 03/09/2018 by Min Last MD at [facility] Right: Shoulder [employer] [facility] 04/30/2022 [id number] / / [id number] Description:Healicoil PK 5.5 MM Suture Dornsife with Two ULTRABRAID Sutures Dornsife Sut Multifix S Ult Peek Kntls 5.5 Implanted:Qty: 2 on 03/09/2018 by Min Last MD at [facility] Right: Shoulder [employer] [facility] [facility] 11/17/2020 [id number] / / [id number] [place] [address] [place] [employer] [employer] MED[employer] ADV SELF PAY NO INSURANCE Member Subscriber Plan / Payer (Ef fective for All Dates) Name:Adrien Root Member ID:Not on file Relation to Subscriber:Not on file Name:MICHAELADRIEN Ortiz Subscriber ID:Not on file (Home) Address: [address] [place] [address] [place] [address] Payer ID:Not on file Group ID:Not on file Type:Self Pay Address: [place], [place] [employer] Care Teams Home Health Manager Relationship Specialty Start Date End Date Blake Bustillo DO [address] [facility] [address] [place], [place] [id number] PCP - General Internal Medicine 03/09/18
--- OUTSIDE RECORDS SUMMARY | 2024-10-27 09:40 | XMS_ITS | Referral Summary ---
Author Organization [facility] [address] Address [address] [place] [address] Care Team Providers Care Striker Out Name Role Phone Leon Weir MD Unavailable [phone] Carey Sosa MD Unavailable Mervin Handley DO Primary Care Provider [phone] Allergies No known active allergies Medications hydroCHLOROthiazid [...] 1/2 syringe as directed 07/28/19 24 Active metoprolol XL (TOPROL-XL) 25 mg extended release tablet Take 1 tablet (25 mg total) by mouth daily 90 tablet 1 08/29/19 24 Active HYDROcodone-acetam inophen (NORCO) 5-325 mg [...] DAY 90 tablet 1 05/17/19 25 Active amLODIPine (NORVASC) 10 mg tablet Take 1 tablet (10 mg total) by mouth daily 90 tablet 06/25/19 25 Active lisinopriL (PRINIVIL,ZESTRIL) 20 mg tablet TAKE 1 TABLET BY MOUTH EVERY DAY 90 tablet 3 09/22/19 25 Active Active Problems Problem Noted Date Diagnosed Date Encounter for removal of internal fixation devic e 03/18/2024 Left arm pain 03/17/2024 No diagnosis on [place] I 05/06/2023 Other chronic pain 05/06/2023 Dizziness [...] (09/17/2021): Added automatically from request for surgery [id number] 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 Patient verbalized understanding. 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 Status post abdominal aortic aneurysm (AAA) repa ir 09/16/2016 Overview (09/20/2016): S/P AAA repair Obstructive sleep apnea syndrome 03/12/2016 Overview (08/08/2016): URIEL on CPAP Ascending aortic aneurysm (CMS/HCC) 09/05/2015 Overview (08/08/2016): Ascending aortic aneurysm Paraseptal emphysema 09/05/2015 Overview (08/08/2016): Paraseptal emphysema Abdominal aortic aneurysm without rupture 2015 Overview (08/08/2016): AAA (abdominal aortic aneurysm) without rupture Aortic root dilatation 07/10/2015 Overview (08/08/2016): Aortic root dilatation Pulmonary function studies abnormal 07/10/2015 Overview (08/08/2016): Abnormal PFTs (pulmonary function tests) Coronary artery disease invo lving [place] coronary artery of [place] heart without angina pectoris 05/29/2015 Overview (08/08/2016): Coronary artery disease involving [place] coronary artery of [place] heart with angina pectoris with documented spasm [...] on file Legal Sex Male 3:48 AM TECHNICAL STAFF ASSISTANT Gender Identity Male 08/22/2021 10:36 AM CDT Sexual Orientation Straight 01/29/2021 8: 39 PM CDT Occupation Industry Job Start Date Job End Date 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 Not on file Not on file Not on file Last Filed Vital Signs Vital Sign Reading Time Taken Comments Blood Pressure 120/70 04/01/2024 1:30 PM TECHNICAL STAFF ASSISTANT Pulse 63 04/01/2024 1:30 PM TECHNICAL STAFF ASSISTANT Temperature 36.3 C (97.4 F) 04/01/2024 1:00 PM TECHNICAL STAFF ASSISTANT Respiratory Rate 18 04/01/2024 1:30 PM TECHNICAL STAFF ASSISTANT Oxygen Saturation 91% 04/01/2024 1:30 PM TECHNICAL STAFF ASSISTANT Inhaled Oxygen Concentration - - Weight 105 kg (231 lb 6.4 oz) 03/29/2024 12:44 P M TECHNICAL STAFF ASSISTANT Height 180.3 cm (5' 11) 03/29/2024 12:44 PM TECHNICAL STAFF ASSISTANT Body Mass Index 32.27 03/29/2024 12:44 PM TECHNICAL STAFF ASSISTANT Plan of Treatment Not on file Goals [...] as needed Medical Devices Implanted Type Area Business Unit Controller Device Identifier Shelf Expiration Date Model / Serial / Lot Acuity Surgical Inc [id number] Tissue Bone Void Filler Acupac Plus 25cc - [id number] - [id number] Implanted:Qty: 1 on 07/06/2020 by Zenon Mead MD at [facility] Graft N/A: Spine Lumbar Acuity Surgical Inc 09/24/2023 [id number] / [id number] / [id number] Medtronic Sofamor Danek [id number] Infuse 14mm 23mm Absorbable Sponge Sterile Water Syringe Needle - S. - [id number] Implanted:Qty: 1 on 07/06/2020 by Zenon Mead MD at [facility] Graft N/A: Spine Lumbar Medtronic Inc 01/26/2021 [id number] / . / [id number] Voicendo Medical 1134.001 Creo Spinal Cap Locking Nonsterile Mis - S. - [id number] Implanted:Qty: 4 on 07/06/2020 by Zenon Mead MD at [facility] Other - see comments N/A: Spine Lumbar Globus Medical 07/06/2020 1134.0010 / . / Globus Medical 193.122 Rise [id number] 10d Lordotic Spacer Spinal Nonsterile - S. - [id number] Implanted:Qty: 1 on 07/06/2020 by Zenon Mead MD at [facility] Other - see comments N/A: Spine Lumbar [employer] Medical 07/06/2020 193.122 / . / Glob[employer] Medical 1134.7055 Creo Mis 5.5mm 55mm Curve Erich Spinal Titanium - S. - [id number] Implanted:Qty: 2 on 07/06/2020 by Zenon Mead MD at [facility] Other - see comments N/A: Spine Lumbar [employer] Medical 07/06/2020 1134.7055 / . / Gl[employer] Medical 1134.01 Creo Mis 30mm Modular Polyaxial Tulip Head Screw Bone - S. - [id number] Implanted:Qty: 4 on 07/06/2020 by Zenon Mead MD at [facility] Screw N/A: Spine Lumbar [employer] 07/06/2020 1134.0100 / . / Gl[employer] Medical 1067.4650 Creo 6.5mm 50mm Cannulated Modular Spine Screw Bone - S. - [id number] Implanted:Qty: 4 on 07/06/2020 by Zenon Mead MD at [facility] Screw N/A: Spine Lumbar [employer] 07/06/2020 1067.4650 / . / Allosource Cubes Graft 15ml Bone Cancellous [id number] - [id number] Implanted:Qty: 1 on 10/25/2021 by Chevy Teresa MD at [facility] N/A: Lumbar-S acral Spine Allosource 11/22/2025 [id number] / / [id number] [employer] Carlene Dp-1011 Duragen Plus 1x1in Patch Resorbable Suturable Cranial Dura Graft - [id number] Implanted:Qty: 1 on 10/25/2021 by Chevy Teresa MD at [facility] N/A: Lumbar-S acral Spine Integra [employer] Carlene [id number] / / Depuy Synthes Spine Expedium 6.5mm 50mm Polyaxial Spine Screw Bone Titanium 5.5mm Erich [id number] - [id number] Implanted:Qty: 2 on 10/25/2021 by Chevy Teresa MD at [facility] N/A: Lumbar-S acral Spine Depuy Synthes Spine [id number] / / Depuy Synthes Spine Expedium 6.5mm 45mm Polyaxial Spine Screw Bone Titanium 5.5mm Erich [id number] - [id number] Implanted:Qty: 6 on 10/25/2021 by Chevy Teresa MD at [facility] N/A: Lumbar-S acral Spine Depuy Synthes Spine [id number] / / Depuy Synthes Spine Expedium 1 Inner Monoaxial Spine Screw Set Titanium [id number] - [id number] Implanted:Qty: 8 on 10/25/2021 by Chevy Teresa MD at [facility] N/A: Lumbar-S acral Spine Depuy Synthes Spine [id number] / / Depuy Synthes Spine Expedium Od5.5 Mm L90 Mm Line Prebent Erich Spinal Titanium Nonsterile [id number] - [id number] Implanted:Qty: 1 on 10/25/2021 by Chevy Teresa MD at [facility] N/A: Lumbar-S acral Spine Depuy Synthes Spine [id number] / / Depuy Synthes Spine Substitute Bone Graft Fibergraft Gps Medium Putty 6cc [id number] - [id number] Implanted:Qty: 1 on 10/25/2021 by Chevy Teresa MD at [facility] N/A: Lumbar-S acral Spine Depuy Synthes Spine [id number] 10/26/2023 [id number] / / [id number] Depuy Synthes Spine Cage Post Spinal Lumbar 8 Degree Tlif Curved Eit Plif [id number] Titanium [id number] - [id number] Implanted:Qty: 1 on 10/25/2021 by Chevy Teresa MD at [facility] N/A: Lumbar-S acral Spine Depuy Synthes Spine [id number] 04/27/2023 [id number] / / [id number] Explanted Type Area Business Unit Controller Device Identifier Shelf Expiration Date Model / Serial / Lot Medtronic Inc Vectris 5mm 60cm 1x8 Electrode Trial Lead Neurostimulator [id number] - Sn/A - [id number] Implanted:Qty: 1 on 07/09/2023 by Carey Sosa MD at [facility] Explanted:Qty: 1 Spinal Cord Stimulator Back Medtronic Inc 06/06/2027 [id number] / N/A / [id number] Medtronic Inc Vectris 5mm 60cm 1x8 Electrode Trial Lead Neurostimulator [id number] - Sn/A - [id number] Implanted:Qty: 1 on 07/09/2023 by Carey Sosa MD at [facility] Explanted:Qty: 1 Spinal Cord Stimulator Back Medtronic Inc 06/20/2027 [id number] / N/A / [id number] Screws Explanted:Qty: 3 on 04/01/2024 by Dima Terrell MD at [facility] Left: Elbow Other 0 / / Description:Explanted 3 scre ws from elbow Procedures Procedure Name Priority Date/Time Associated Diagnosis Comments CT ABDOMEN W CONTRAST Schedule Routine, Read Routine (OP Routine) 08/24/2021 9:49 AM CDT Hepatic cyst from Last 3 Months or Most Recently Relevant to Health Maintenance Results * CT Abdomen W Contrast (08/24/2021 9:49 [...] agrees with it. Electronically signed by: Melquiades Salari, M.D. , PHD Narrative 08/24/2021 2:04 PM [...] Forrest M.D. , PHD Jm Carlos MD IM CT PROCEDURES Leslie l Result from Last 3 Months or Most Recently Relevant to Health Maintenance Insurance [employer] MEDICARE GOLD [place] [address] Advance Directives For more information, please contact: [phone] * Full Code (Latest Code Status on File) Date Activated Date Inactivated Comments 10/25/2021 8:19 PM 10/28/2021 6:25 PM * Full Code Date Activated Date Inactivated Comments 07/06/2020 5:18 PM 07/07/2020 7:26 PM Care Teams Striker Out Relationship Specialty Start Date End Date Mervin Handley DO [address] [place] [id number] PCP - General Internal Medicine 03/17/24 Leon Weir MD Pipeline Integrity Engineer Cardiology 06/21/20 Carey Sosa MD Consulting Physician Pain Management 03/11/23
--- OUTSIDE RECORDS SUMMARY | 2024-10-27 09:40 | XMS_ITS | Clinical Summary ---
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 Patient verbalized understanding. - After [...] (09/17/2021): Added automatically from request for surgery [id number] Hepatic cyst 08/02/2021 Assessment & Plan (08/06/2021 [...] (06/21/2020): Added automatically from request for surgery [id number] Left forearm pain 02/14/2020 Left elbow pain [...] function tests) Coronary artery disease invo lving [place] coronary artery of [place] heart without angina pectoris 05/29/2015 Overview (08/08/2016): Coronary artery disease involving [place] coronary artery of [place] heart with angina pectoris with documented spasm [...] 12/27/2014 Overview (08/08/2016): History of tobacco abuse Surgical History Surgery Date Site/Laterality Comments CARDIAC [...] History Date Comments AAA (abdominal aortic aneurysm) Hypertension Arthritis Hypercholesteremia Sleep apnea wears cpap Coronary-myocardial bridge URIEL (obstructive sleep apnea) PONV (postoperative nausea and vomiting) w/ ether following tonsillectomy Lumbar radiculopathy Aneurysm Prostate disorder Descending aortic aneurysm Monit oring 4.1 size Family History Medical History Relation Name Comments Cancer Brother 1 Angel Diabetes Brother 1 Angel Hypertension Brother 1 Angel Prostate cancer Brother 1 Angel Cancer Brother 2 Chevy Cancer Father Angel Prostate cancer Father Angle Arthritis Mother Anya Diabetes Mother Anya Heart [...] on file Legal Sex Male 3:48 AM CEMENT FINISHER HELPER Gender Identity Male 08/22/2021 10:36 AM CDT Sexual Orientation Straight 01/29/2021 8: 39 PM CDT Occupation Industry Job Start Date Job End Date 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 on file Not on file Not on file Obstetrics History Last Filed Vital Signs Vital Sign Reading Time Taken Comments Blood Pressure 120/70 04/01/2024 1:30 PM CEMENT FINISHER HELPER Pulse 63 04/01/2024 1:30 PM CEMENT FINISHER HELPER Temperature 36.3 C (97.4 F) 04/01/2024 1:00 PM CEMENT FINISHER HELPER Respiratory Rate 18 04/01/2024 1:30 PM CEMENT FINISHER HELPER Oxygen Saturation 91% 04/01/2024 1:30 PM CEMENT FINISHER HELPER Inhaled Oxygen Concentration - - Weight 105 kg (231 lb 6.4 oz) 03/29/2024 12:44 P M CEMENT FINISHER HELPER Height 180.3 cm (5' 11) 03/29/2024 12:44 PM CEMENT FINISHER HELPER Body Mass Index 32.27 03/29/2024 12:44 PM CEMENT FINISHER HELPER Plan of Treatment Health Maintenance Due Date Last Done Comments Colon Cancer Screening-Colonoscopy 1950 Hepatitis C Screening 1950 Prostate Cancer Screening-PSA 1950 DTaP/Tdap/Td Vaccine (1 - Tdap) 01/09/1960 Hepatitis B Screening 1967 Well Visit 65+ 2014 Depression Screening 01/30/2022 01/30/2021, 01/31/20 21 Covid-19 Vaccine (5 - 2023-2 5 season) 2023 08/25/2021, 03/02/2021, 07/20/2020, Additional history exists Fall Risk Assessment 07/15/2024 07/16/2023, 07/09/2023, 04/08/2023, Additional history exists Influenza Vaccine (Season Ended) 2024 01/23/2021, 02/02/2020, 02/24/2019, Additional history exists Pneumococcal vaccine 65+ Completed [...] as needed Medical Devices Implanted Type Area Meat Puller Device Identifier Shelf Expiration Date Model / Serial / Lot Acuity Surgical Inc [id number] Tissue Bone Void Filler Acupac Plus 25cc - [id number] - [id number] Implanted:Qty: 1 on 07/06/2020 by Zenon Mead MD at [facility] Graft N/A: Spine Lumbar Acuity Surgical Inc 09/24/2023 [id number] / [id number] / [id number] Medtronic Sofamor Danek [id number] Infuse 14mm 23mm Absorbable Sponge Sterile Water Syringe Needle - S. - [id number] Implanted:Qty: 1 on 07/06/2020 by Zenon Mead MD at [facility] Graft N/A: Spine Lumbar Medtronic Inc 01/26/2021 [id number] / . / [id number] Globus Medical 1134.001 Creo Spinal Cap Locking Nonsterile Mis - S. - [id number] Implanted:Qty: 4 on 07/06/2020 by Zenon Mead MD at [facility] Other - see comments N/A: Spine Lumbar [employer] 07/06/2020 1134.0010 / . / Globus Medical 193.122 Rise [id number] 10d Lordotic Spacer Spinal Nonsterile - S. - [id number] Implanted:Qty: 1 on 07/06/2020 by Zenon Mead MD at [facility] Other - see comments N/A: Spine Lumbar [employer] 07/06/2020 193.122 / . / Glob[employer] Medical 1134.7055 Creo Mis 5.5mm 55mm Curve Erich Spinal Titanium - S. - [id number] Implanted:Qty: 2 on 07/06/2020 by Zenon Mead MD at [facility] Other - see comments N/A: Spine Lumbar [facility] 07/06/2020 1134.7055 / . / Glob[employer] Medical 1134.01 Creo Mis 30mm Modular Polyaxial Tulip Head Screw Bone - S. - [id number] Implanted:Qty: 4 on 07/06/2020 by Zenon Mead MD at [facility] Screw N/A: Spine Lumbar [facility] 07/06/2020 1134.0100 / . / Globus Medical 1067.4650 Creo 6.5mm 50mm Cannulated Modular Spine Screw Bone - S. - [id number] Implanted:Qty: 4 on 07/06/2020 by Zenon Mead MD at [facility] Screw N/A: Spine Lumbar [facility] 07/06/2020 1067.4650 / . / Allosource Cubes Graft 15ml Bone Cancellous [id number] - [id number] Implanted:Qty: 1 on 10/25/2021 by Chevy Teresa MD at [facility] N/A: Lumbar-S acral Spine Allosource 11/22/2025 [id number] / / [id number] Integra Lifesciences Carlene Dp-1011 Duragen Plus 1x1in Patch Resorbable Suturable Cranial Dura Graft - [id number] Implanted:Qty: 1 on 10/25/2021 by Chevy Teresa MD at [facility] N/A: Lumbar-S acral Spine Integra Lifesciences Carlene [id number] / / Depuy Synthes Spine Expedium 6.5mm 50mm Polyaxial Spine Screw Bone Titanium 5.5mm Erich [id number] - [id number] Implanted:Qty: 2 on 10/25/2021 by Chevy Teresa MD at [facility] N/A: Lumbar-S acral Spine Depuy Synthes Spine [id number] / / Depuy Synthes Spine Expedium 6.5mm 45mm Polyaxial Spine Screw Bone Titanium 5.5mm Erich [id number] - [id number] Implanted:Qty: 6 on 10/25/2021 by Chevy Teresa MD at [facility] N/A: Lumbar-S acral Spine Depuy Synthes Spine [id number] / / Depuy Synthes Spine Expedium 1 Inner Monoaxial Spine Screw Set Titanium [id number] - [id number] Implanted:Qty: 8 on 10/25/2021 by Chevy Teresa MD at [facility] N/A: Lumbar-S acral Spine Depuy Synthes Spine [id number] / / Depuy Synthes Spine Expedium Od5.5 Mm L90 Mm Line Prebent Erich Spinal Titanium Nonsterile [id number] - [id number] Implanted:Qty: 1 on 10/25/2021 by Chevy Teresa MD at [facility] N/A: Lumbar-S acral Spine Depuy Synthes Spine [id number] / / Depuy Synthes Spine Substitute Bone Graft Fibergraft Gps Medium Putty 6cc [id number] - [id number] Implanted:Qty: 1 on 10/25/2021 by Chevy Teresa MD at [facility] N/A: Lumbar-S acral Spine Depuy Synthes Spine [id number] 10/26/2023 [id number] / / [id number] Depuy Synthes Spine Cage Post Spinal Lumbar 8 Degree Tlif Curved Eit Plif [id number] Titanium [id number] - [id number] Implanted:Qty: 1 on 10/25/2021 by Chevy Teresa MD at [facility] N/A: Lumbar-S acral Spine Depuy Synthes Spine [id number] 04/27/2023 [id number] / / [id number] Explanted Type Area Meat Puller Device Identifier Shelf Expiration Date Model / Serial / Lot Medtronic Inc Vectris 5mm 60cm 1x8 Electrode Trial Lead Neurostimulator [id number] - Sn/A - [id number] Implanted:Qty: 1 on 07/09/2023 by Carey Sosa MD at [facility] Explanted:Qty: 1 Spinal Cord Stimulator Back Medtronic Inc 06/06/2027 [id number] / N/A / [id number] Medtronic Inc Vectris 5mm 60cm 1x8 Electrode Trial Lead Neurostimulator [id number] - Sn/A - [id number] Implanted:Qty: 1 on 07/09/2023 by Carey Sosa MD at [facility] Explanted:Qty: 1 Spinal Cord Stimulator Back Medtronic Inc 06/20/2027 [id number] / N/A / [id number] Screws Explanted:Qty: 3 on 04/01/2024 by Dima Terrell MD at [facility] Left: Elbow Other 0 / / Description:Explanted [...] to Health Maintenance Insurance AETNA MEDICARE GOLD [facility] MEDICARE GOLD Advance Directives For more information, please contact: [phone] * Full Code (Latest Code Status on File) Date Activated Date Inactivated Comments 10/25/2021 8:19 PM 10/28/2021 6:25 PM * Full Code Date Activated Date Inactivated Comments 07/06/2020 5:18 PM 07/07/2020 7:26 PM Care Teams Electric Meter Repairer Helper Relationship Specialty Start Date End Date Mervin Handley DO [address] [place] [address] PCP - General Internal Medicine 03/17/24 Leon Weir MD Grain Elevator Agent Cardiology 06/21/20 Carey Sosa MD Consulting Physician Pain Management 03/11/23
--- OUTSIDE RECORDS SUMMARY | 2024-10-27 09:40 | XMS_ITS | Clinical Summary ---
Author Organization [facility] Address [address] [place] [address] Phone Care Team Providers Care Program Attendant Name Role Phone Blake Bustillo DO Primary Care Provider [phone] Allergies No known active allergies Medications lisinopril [...] Take 10 mg by mouth daily. Active atorvastatin (LIPITOR) [...] 6 Tablets 40 Tablet 05/09/2017 8:14 PM RAPID OUTSOLE STITCHER 05/09/2017 Active diazePAM (VALIUM) 5 mg tablet Take 1 Tablet by mouth every 6 hours as needed for Anxiety. 20 Tablet 05/09/2017 8:14 PM RAPID OUTSOLE STITCHER 05/09/2017 Active docusate sodium (COLACE) 100 mg capsule Take 1 Capsule by mouth 2 times daily. 20 Capsule 05/09/2017 8:14 PM RAPID OUTSOLE STITCHER 05/09/2017 Active Active Problems Problem Noted Date Diagnosed Date MAHMOOD (dyspnea on exertion) 09/11/2024 Mixed hyperlipidemia 03/14/2024 Primary hypertension 03/14/2024 S/P AAA repair 03/14/2024 Dilated aortic root 03/14/2024 Coronary artery disease invo lving [place] coronary artery of [place] heart without angina pectoris 03/14/2024 URIEL (obstructive sleep apnea) 03/14/2024 Erectile dysfunction 03/14/2024 Postprocedural hypotension 06/11/2016 Lactic acidosis 06/11/2016 Abdominal aortic aneurysm greater than 39 mm in diameter 06/06/2016 Encounters Date Type Department Care Team Description 10/12/2024 External Device Data STL ABSTRACTION Provider, Abstract 10/08/2024 Telephone [facility] [address] [place] [address] Deangelo Grossman MD monitor results 10/04/2024 9:51 AM CDT - 10/04/2024 11:59 PM CDT Hospital Encounter [facility] [address] [place] [phone] Deangelo Grossman MD Discharge Disposition: Home or Self Care 10/01/2024 10:30 AM CDT - 10/01/2024 11:59 PM CDT Hospital Encounter [facility] [address] [place] [phone] Deangelo Grossman MD Discharge Disposition: Home or Self Care 09/16/2024 External Device Data STL ABSTRACTION Provider, Abstract 08/31/2024 External Device Data STL ABSTRACTION Provider, Abstract 08/26/2024 11:00 AM CDT Office Visit [facility] [address] [place] [address] Deangelo Grossman MD MAHMOOD (dyspnea on exertion) (Primary Dx); Dilated aortic root; Mixed hyperlipidemia; Erectile dysfunction, unspecified erectile dysfunction type; Primary hypertension; S/P AAA repair; URIEL (obstructive sleep apnea) from Last 3 Months Immunizations Immunization Administration [...] on file Legal Sex Male 4:30 AM RAPID OUTSOLE STITCHER Gender Identity Not on file Sexual Orientation Not on file Occupation Industry Job Start Date Job End Date Not on file Not on file Not on file Not on file Last Filed Vital Signs Vital Sign Reading Time Taken Comments Blood Pressure 122/75 08/26/2024 11:08 AM CDT Pulse 85 08/26/2024 11:08 AM CDT Temperature 36.9 C (98.4 F) 05/09/2017 10:03 PM RAPID OUTSOLE STITCHER Respiratory Rate 14 05/09/2017 10:03 PM RAPID OUTSOLE STITCHER Oxygen Saturation 98% 08/26/2024 11:08 AM CDT Inhaled Oxygen Concentration - - Weight 103 kg (227 lb 1.6 oz) 08/26/2024 11:08 A M CDT Height 182.9 cm (6') 08/26/2024 11:08 AM CDT Body Mass Index 30.8 08/26/2024 11:08 AM CDT Plan of Treatment Upcoming Encounters Date Type Department Care Team (Late st Contact Info) Description 11/04/2024 7:30 AM CDT Appointment [facility] [address] [place] [phone] Deangelo Grossman MD [address] [place] [address] [address] [place] [address] Health Maintenance Due Date Last Done Comments DTAP/TDAP/TD VACCINES (1 - Tdap) 01/09/1968 PNEUMOCOCCAL VACCINE 50+ YEARS (1 of 2 - PCV) 01/08/19 68 FIT-DNA Q 3 years 1994 FIT/FOBT Q 1 year 1994 Flex Sig/CT Colonography Q 5 years 1994 ZOSTER VACCINE (1 of 2) 1999 Abdominal Aortic Aneurysm (AAA) Screening 2014 COLORECTAL SCREENING 04/28/2021 04/28/2011 Colorectal Cancer Screening 04/28/2021 INFLUENZA VACCINE (#1) 2023 04/06/2016 RSV VACCINE (60+ or ) (1 - 1-dose 75+ series) 01/09/2024 Medical Devices Implanted Type Area Rooming House Keeper Device Identifier Shelf Expiration Date Model / Serial / Lot Endobutton 4x12mm [id number] - [id number] Implanted:Qty : 1 on 02/01/2014 by Shay Silveira MD at [facility] Right: Arm GRANGER NEPHEW- ENDOSCOPY 04/27/2016 [id number] / / [id number] [place] Sut Bio Swvlck-C [id number] - [id number] Implanted:Qty : 1 on 05/09/2017 by Min Last MD at [facility] Right: Shoulder [employer] [id number] 02/25/2019 AR-2324BC C-2 / / [id number] Graft Hmshld Gold Bifur [id number] - [id number] Implanted:Qty : 1 on 06/10/2016 by Adrien Fontana MD at [facility] Graft N/A: Abdomen [employer] 01/25/2021 [id number] / / [id number] Explanted Type Area Rooming House Keeper Device Identifier Shelf Expiration Date Model / Serial / Lot Pin Tony Plain 5/64x9in [id number] - [id number] Explanted:Qty: 1 on 02/01/2014 at [facility] Pin Right: Arm [facility] [id number] Description:load 36jan 30, 2014 Procedures Procedure Name Priority Date/Time Associated Diagnosis Comments HOLTER MONITOR Routine 10/06/2024 7:13 AM CDT MAHMOOD (dyspnea on exertion) from Last 3 Months Results * HOLTER MONITOR (10/06/2024 7:13 AM CDT) 10/06/2024 7:13 AM CDT Narrative INTERFACE SYSTEM - 10/07/2024 2:18 PM CDT [place] [id number] Test Date: 2024-10-06 Pat Name: [facility] Department: Room: Gender: Male Clam Shucker: : 1950 Requested By: DEANGELO Contreras Order Number: [id number] Sumeet MD: Rene Ang Interpretive Statements Patient monitored for 2d 9h, analyzable time was 2d 9h starting on 10/01/2024 10:37 am. Primary rhythm was Sinus Rhythm. Average heart rate was 68 bpm, Minimum heart rate was 49 bpm on Day 3 :20:54 am, Max heart rate was 129 bpm on Day :02:20 pm SVE(s): [place] was 0.14 %, 325 total SVE(s) SV Arrhythmia(s): 4 event(s), longest event 7 beats on Day :58:33 pm, fastest event 123 bpm on Day :31:36 pm PVC(s): [place] was 1.01 %, 2392 total PVC(s), 4 disparate morphologies There were no patient recorded events. Electronically Signed On 10-07-2024 14:18:30 CDT by Rene Ang Procedure Note Rene Ang MD - 10/07/[address] [address] Test Date: 2024-10-06 Pat Name: [facility] Department: Room: Gender: Male Clam Shucker: : 1950 Requested By: DEANGELO Contreras Order Number: [id number] Sumeet ARIAS: Rene Ang Interpretive Statements Patient monitored for 2d 9h, analyzable time was 2d 9h starting on10/01/2024 10:37 am. Primary rhythm was Sinus Rhythm. Average heart rate was 68 bpm, Minimumheart rate was 49 bpm on Day :20:54 am, Max heart rate was 129 bpm on Day:02:20 pm SVE(s): [place] was 0.14 %, 325 total SVE(s) SV Arrhythmia(s): 4 event(s), longest event 7 beats on Day :58:33pm, fastest event 123 bpm on Day :31:36 pm PVC(s): [place] was 1.01 %, 2392 total PVC(s), 4 disparate morphologies There were no patient recorded events. Electronically Signed On 10-07-2024 14:18:30 CDT by Rene Ang us Deangelo Grossman MD CARDIAC SERVICES ORDERABLES Final Result INTERFACE SYSTEM Refer to clinic/hospital department from Last 3 Months Insurance [facility] RX AETNA Medicare Part D Advance Directives For more information, please contact: [phone] * Full Code (Latest Code Status on [...] 9:54 AM 02/01/2014 4:53 PM Care Teams Program Attendant Relationship Specialty Start Date End Date Blake Bustillo DO [address] [place] [phone] PCP - General Internal Medicine 01/25/14
== END 2024-10-27 09:22 | disposition home or self-care (01) ==
PROVIDERS: PCP Nurse Practitioner Family; Visit Provider Physician Assistant
DX: R06.02 Shortness of breath (principal); J43.9 Emphysema, unspecified; R05.9 Cough, unspecified
CPT/HCPCS: 71250

== ENCOUNTER 2025-02-10 08:55 | Outpatient (CLI) | payer MEDICARE, SELFPAY ==
--- OUTSIDE RECORDS SUMMARY | 2018-09-03 08:00 | XMS_ITS | Continuity of Care Document ---
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 Role Phone Min Last MD Unavailable Unavailable Allergies, Adverse Reactions, Alerts Substance Reaction Status Criticality No Known Allergies Active No Inform ation Medications Medication Instructions Dosage Effective Dates (start - stop) Status Comments hydroxyzine HCl 25 mg tablet take 1 tablet by oral route 4 times every day 25 MG - Active Voltaren 1 % topical gel apply (2G) by topical route 4 times every day to the affected area(s) - Active AMLODIPINE BESYLATE (unknown strength) take 1 tablet by oral route every day Not Available - Active ATORVASTATIN CALCIUM (unknown strength) take 1 tablet by oral route every day Not Available - Active metoprolol succinate ER 25 mg tablet,extended release 24 hr take 1 tablet by oral route every day 25 MG - Active lisinopril 10 mg tablet take 1 tablet by oral route every day 10 MG - Active Procedures Procedure Date OFFICE/OUTPATIENT VISIT EST POSTOP FOLLOW-UP VISIT POSTOP FOLLOW-UP VISIT POSTOP FOLLOW-UP VISIT OFFICE/OUTPATIENT VISIT EST OFFICE/OUTPATIENT VISIT EST OFFICE/OUTPATIENT VISIT EST OFFICE/OUTPATIENT VISIT NEW OFFICE/OUTPATIENT VISIT EST OFFICE/OUTPATIENT VISIT EST POSTOP FOLLOW-UP VISIT POSTOP FOLLOW-UP VISIT POSTOP FOLLOW-UP VISIT OFFICE/OUTPATIENT VISIT EST OFFICE/OUTPATIENT VISIT EST OFFICE/OUTPATIENT VISIT EST POSTOP FOLLOW-UP VISIT OFFICE/OUTPATIENT VISIT EST OFFICE/OUTPATIENT VISIT EST OFFICE/OUTPATIENT VISIT EST OFFICE/OUTPATIENT VISIT EST OFFICE/OUTPATIENT VISIT EST POSTOP FOLLOW-UP VISIT POSTOP FOLLOW-UP VISIT POSTOP FOLLOW-UP VISIT POSTOP FOLLOW-UP VISIT POSTOP FOLLOW-UP VISIT POSTOP FOLLOW-UP VISIT OFFICE/OUTPATIENT VISIT NEW OFFICE/OUTPATIENT VISIT EST OFFICE/OUTPATIENT VISIT EST OFFICE/OUTPATIENT VISIT NEW Advance Directives Directive Yes / No Effective Date File Name No Information Encounters Encounter Description Practice Location Reason(s) For Visit Diagnoses Date Provider Providers Copied on Encounter OFFICE/OUTPA TIENT VISIT EST [facility], [address], [facility], tel:[phone] [facility] Complete tear of right rotator cuff 9 Berhane Copeland. [address] [facility] [address], [place], [place], [id number]. tel:[phone] [facility], [address] [place] [address], [address], tel:[phone] [facility] Complete tear of right rotator cuff 9 Berhane Copeland. [address] [facility] [address], [place], [place], [address]. tel:[phone] Referring Provider: Blake Jarvis, [address], [place], [address] . tel:[phone] [facility], [address] [place] [address], [address], tel:[phone] [facility] Complete tear of right rotator cuff 8 Isidoro Batista. [address] [facility] [facility] [address], [place], [address]. tel:[phone] [facility], [address] [facility] [address], [place], [address], [place] tel:[phone] [facility] Peripheral polyneuropathy 8 Berhane Copeland. [address] [facility] [facility] [address], [place], [place], [address]. tel:[phone] [facility], [address] [place] [address] [address], [place], [address], [place] tel:[phone] [facility] No Information 8 Berhane Copeland. [address] [facility] [facility] [address], [place], [place], [address]. tel:[phone] [facility], [address] [place] [address] 200, [place], [address], [place] tel:[phone] [facility] Peripheral polyneuropathy 8 Sabrina Burnett. [address] [facility], [place], [place], [address]. tel:[phone] [facility], [address] [facility] [address], [place], [address], [place] tel:[phone] [facility] Complete tear of right rotator cuffImpingemen t syndrome of right shoulderStrain of muscle(s) and tendon(s) of the rotator cuff of right shoulder, initial encounter 8 Berhane Copeland. [address] [facility] [facility] [address], [place], [place], [address]. tel:[phone] OFFICE/OUTPA TIENT VISIT EST [facility], [address] [place] [address] [address], [place], [address], [place] tel:[phone] [facility] Complete tear of right rotator cuff 8 Berhane Copeland. [address] [facility] [facility] [address], [place], [place], [id number]. tel:[phone] Referring Provider: Min Rosales, [address], [place], [address]. tel:[phone] OFFICE/OUTPA TIENT VISIT [facility], [address], [address], [place] tel:[phone] [facility] Trochanteric bursitis of both hipsTrochanter ic bursitis, left hipSpinal stenosis of lumbar region without neurogenic claudication Oct-2 5- 8 Sabrina Burnett. [address] [facility], [place], [place], [address]. tel:[phone] OFFICE/OUTPA TIENT VISIT [facility], [address] [place] [address], [address], [place] tel:[phone] [facility] Complete tear of right rotator cuff Oct-1 8- 8 Berhane Copeland. [address] [facility] [address], [place], [place], [address]. tel:[phone] OFFICE/OUTPA TIENT VISIT [facility], [address] [place] [address], [address], [place] tel:[phone] [facility] Body mass index (BMI) 30.0-30.9, adultSpinal stenosis of lumbar region without neurogenic claudicationIm pingement syndrome of right shoulderSpondy losis of lumbosacral region without myelopathy or radiculopathy Oct-1 - 8 Sabrina Burnett. [address] [facility], [place], [place], [address]. tel:[phone] OFFICE/OUTPA TIENT VISIT [facility], [address] [place] [address], [address], [place] tel:[phone] [facility] Primary osteoarthritis of right kneeSpinal stenosis of lumbar region without neurogenic claudication Oct-0 2-201 8 Benja Dickerson. [address] [place], [place], [address]. tel:[phone] OFFICE/OUTPA TIENT VISIT [facility], [address] [address], [place], [address], [place] tel:[phone] [facility] Primary osteoarthritis of right kneeSpinal stenosis of lumbar region, unspecified whether neurogenic claudication present 8 Benja Dickerson. [address] [facility], [place], [place], [address]. tel:[phone] [facility], [address] [place] [address], [place], [address], [place] tel:[phone] [facility] [place] PO TSA R SHOULDER (chief complaint) Status post arthroscopy of shoulder Jul- 8 Berhane Copeland. [address] [facility] [address], [place], [place], [address]. tel:[phone] [facility], [address] [place] [address], [address], [place] tel:[phone] [facility] [place] Status post arthroscopy of shoulder 8 Berhane Copeland. [address], [place], [place], [address]. tel:[phone] [facility], [address] [place] [address], [place], [address], [place] tel:[phone] [facility] PO RT SHOULDER SCOPE W/RCR (chief complaint) Body mass index (BMI) 29.0-29.9, adultStatus post arthroscopy of shoulder 8 Berhane Copeland. [address], [place], [place], [address]. tel:[phone] OFFICE/OUTPA TIENT VISIT EST [facility], [address] [place] [address], [place], [address], [place] tel:[phone] [facility] Incomplete tear of right rotator cuffImpingemen t syndrome of right shoulderBiceps tendonitis, right 8 Berhane Copeland. [address], [place], [place], [address]. tel:[phone] Referring Provider: Blake Jarvis, [address], [place], [address] . tel:[phone] [facility], [address], [address], [place] tel:[phone] [facility] Incomplete tear of left rotator cuffIncomplete tear of right rotator cuffComplete tear of right rotator cuff 8 Berhane Copeland. [address] [facility] [facility] [address], [place], [place], [address]. tel:[phone] OFFICE/OUTPA TIENT VISIT [facility], [address], [address], [place] tel:[phone] [facility] Incomplete tear of right rotator cuff 8 Benja Dickerson. [address] [place] [address], [id number]. tel:[phone] Referring Provider: Tuan Yousif, [address] [place] [address] [address], [place], [address]. tel:[phone] OFFICE/OUTPA TIENT VISIT [facility], [address] [place] [address], [address], [place] tel:[phone] [facility] Primary osteoarthritis of right kneeImpingemen t syndrome of right shoulderStatus post left elbow joint replacement 7 Benja Dickerson. [address] [place] [address], [id number]. tel:[phone] [facility], [address] [place] [address], [address], [place] tel:[phone] [facility] Primary osteoarthritis of right knee 7 Jamila Benitez. [address] [place] [address] [address] [facility], [place], [place], [address]. tel:[phone] OFFICE/OUTPA TIENT VISIT [facility], [address] [place] [address], [address], [place] tel:[phone] [facility] Primary osteoarthritis of right kneeRight shoulder tendonitisSpra in of left wrist, initial encounter 7 Benja Dickerson. [address] [place], [place], [address]. tel:[phone] OFFICE/OUTPA TIENT VISIT EST [facility], [address] [place] [address], [address], [place] tel:[phone] [facility] Biceps tendonitis, rightTrochante yanni bursitis of both hipsTrochanter ic bursitis, left hip 0 7 Jamila Eli. [address] [address], [place], [place], [address]. tel:[phone] OFFICE/OUTPA TIENT VISIT [facility], [address] [place] [address], [address], [place] tel:[phone] [facility] Flavio hip (chief complaint) Trochanteric bursitis of right hipTrochanteri c bursitis of left hip 5 Jamila Benitez. [address], [id number]. tel:[phone] OFFICE/OUTPA TIENT VISIT [facility], [address] [place] [address], [address], [place] tel:[phone] [facility] Follow Up of PO SHOULDER (chief complaint) Rotator cuff tear 5 Jamila Eli. [address] [address], [place], [place], [address]. tel:[phone] OFFICE/OUTPA TIENT VISIT [facility], [address] [place] [address], [address], [place] tel:[phone] [facility] Follow Up of Lt shoulder (chief complaint) Biceps muscle tear 5 Benja Dickerson. [address] [place] [address], [id number]. tel:[phone] [facility], [address] [place] [address] [place], [address], [place] tel:[phone] [facility] Rotator cuff tear 5 Jamila Eli. [address] [address], [place], [place], [address]. tel:[phone] [facility], [address] [address], [place], [address], [place] tel:[phone] [facility] Rotator cuff tear 5 Jamila Eli. [address] [address], [place], [place], [address]. tel:[phone] [facility], [address] [place] [address], [place], [address], [place] tel:[phone] [facility] Lt RTC repair (chief complaint) Rotator cuff tear 4 Jamila Eli. [address] [address], [place], [place], [address]. tel:[phone] [facility], [address] [place] [address], [place], [address], [place] tel:[phone] [facility] right biceps (chief complaint) Biceps muscle tear [address] [facility], [place], [place], [address]. tel:[phone] [facility], [address] [place] [address], [place], [address], [place] tel:[phone] [facility] Rotator cuff tear 4 Jamila Maldonadon. [address] [address], [place], [place], [address]. tel:[phone] [facility], [address] [place] [address], [place], [address], [place] tel:[phone] [facility] P/O R DISTAL BICEPS (chief complaint) Biceps muscle tear [address], [place], [place], [address], [place]. tel:[phone] [facility], [address] [address], [place], [address], [place] tel:[phone] [facility] 1st post op distal biceps repair (chief complaint) Other and unspecified injury to other specified sites, including multiple Oct-2 1-201 4 Lei Quesada. [address], [place], [place], [address], [place]. tel:[phone] [facility], [address] [address], [place], [address], [place] tel:[phone] [facility] Shoulder capsulitis Sep-2 3-201 4 Benja Dickerson. [address] [place] [address], [id number]. tel:[phone] OFFICE/OUTPA TIENT VISIT [facility], [address] [place] [address], [address], [place] tel:[phone] [facility] Biceps muscle tear Sep-2 3-201 4 Raoul Day. [address] [place], [place], [address]. tel:[phone] OFFICE/OUTPA TIENT VISIT [facility], [address] [place] [address], [address], [place] tel:[phone] [facility] Elbow tendonitis Sep-0 8-201 4 Jamila Benitez. [address], [id number]. tel:[phone] OFFICE/OUTPA TIENT VISIT [facility], [address], [address], [place] tel:[phone] [facility] Shoulder capsulitis Eliseo-2 3-201 4 Benja Dickerson. [address] [place] [address], [id number]. tel:[phone] OFFICE/OUTPA TIENT VISIT [facility], [address] [place] [address], [address], [place] tel:[phone] [facility] Shoulder capsulitis 4 Benja Dickerson. [address] [place] [address], [id number]. tel:[phone] Family History Family Member Type Diagnosis Age At Onset Mother Problem (finding) Mother Problem (finding) hypertension Son Problem (finding) Alive and well Immunizations Vaccine Date Status Comments Pneumo (2 yrs or older)(PPV) administered Source: Other Provider Payers Payer name Insurance type Covered democrat ID Authoriza tion(s) No Information Social History Type Description Quantity Date Captured Comments Alcohol Use Details Unknown Caffeine Use Details Unknown Tobacco Use Status No Information Smoking Status No Information Sex Male Chief Complaint And Reason For Visit No Information Reason For Referral Reason For Referral No Information Plan Of Treatment Date Type Action Status Goal Lifestyle education regardin g diet completed Referral Ordered: INJ FORAMEN EPIDURAL L/S Appointment date/timeframe: 02/05/2018 ordered Referral Ordered: Synvisc 1mg Intrarticular injection Appointment date/timeframe: 01/27/2018 ordered Referral Ordered: MRI SPI CANAL&CNTS LMBR C-MATRL Appointment date/timeframe: 01/16/2018 ordered Referral Ordered: MRI ANY JT UXTR C-MATRL RT shoulder Appointment date/timeframe: 04/24/2017 ordered Referral Ordered: Synvisc or Synvisc-One RT knee ordered Referral Ordered: RADEX F/ARM 2 VIEWS LT ordered Referral Ordered: RADEX KNE COMPL 4/MORE VIEWS RT ordered Referral Ordered: RADEX QUINTON COMPL MINIMUM 2 VIEWS RT ordered Referral Ordered: RADEX PELVIS 1/2 VIEWS ordered Referral Ordered: RADEX HIP UNI 1 VIEW LT ordered Referral Ordered: RADEX HIP UNI 1 VIEW RT ordered Referral Ordered: MRI ANY JT UXTR C-MATRL LT shoulder Appointment date/timeframe: 03/04/2014 ordered Referral Ordered: MRI ANY JT UXTR C-MATRL RT Appointment date/timeframe: 01/15/2014 ordered Referral Ordered: RADEX ELBW 2 VIEWS RT ordered Referral Ordered: RADEX QUINTON COMPL MINIMUM 2 VIEWS LT ordered History Of Present Illness Encounter Date Complaint History Of Prese nt Illness PO TSA R SHOULDER PO RT SHOULDER SCOPE W/RCR Flavio hip Follow Up of PO SHOULDER Follow Up of Lt shoulder Lt RTC repair right biceps P/O R DISTAL BICEPS 1st post op distal biceps repair Functional Status Date Functional Assessmen t No Information Instructions Date Instruction Additional Infor lauren Home exercise program Related to Complete tear of right rotator cuff Activity as tolerated. Related t o Status post arthroscopy of right shoulder Apply ice as tolerated. Related to Complete tear of right rotator cuff Watch for signs of infection Rel ated to Status post arthroscopy of right shoulder Activity as tolerated Related to Complete tear of right rotator cuff Home exercise program Related to Complete tear of right rotator cuff Apply ice as tolerated. Related to Complete tear of right rotator cuff Ice or heat for comfort Related to Status post right rotator cuff repair Watch for signs of infection Rel ated to Status post right rotator cuff repair Apply ice as tolerated. Related to Complete tear of right rotator cuff Immobilize as directed. Related to Complete tear of right rotator cuff Apply ice as tolerated. Related to Trochanteric bursitis of both hips Activity as tolerated Related to Trochanteric bursitis of both hips Apply ice as tolerated. Related to Complete tear of right rotator cuff Giving encouragement to exercise Related to Body mass index (BMI) 30.0-30.9, adult Lifestyle education regarding di et Related to Body mass index (BMI) 30.0-30.9, adult Activity as tolerated. Related t o Spinal stenosis of lumbar region without neurogenic claudication Apply ice and/or heat as tolerat ed Related to Spinal stenosis of lumbar region without neurogenic claudication ice/heat as needed Related to Pr imary osteoarthritis of right knee rest as needed Related to Prima ry osteoarthritis of right knee Activity as tolerated. Related t o Status post arthroscopy of shoulder Ice as tolerated Related to Stat us post arthroscopy of shoulder Ice or heat for comfort Related to Status post arthroscopy of shoulder Ice as tolerated Related to Stat us post arthroscopy of shoulder Activity as tolerated. Related t o Status post arthroscopy of shoulder Activity as tolerated. Related t o Status post arthroscopy of shoulder Giving encouragement to exercise Related to Body mass index (BMI) 29.0-29.9, adult Ice as tolerated Related to Stat us post arthroscopy of shoulder Apply ice as tolerated. Related to Impingement syndrome of right shoulder Immobilize as directed. Related to Impingement syndrome of right shoulder activity as tolerated Related to Primary osteoarthritis of right knee apply heating pad or ice as tolerated Related to Primary osteoarthritis of right knee immobilize if directed Related t o Primary osteoarthritis of right knee Immobilize as directed. Related to Sprain of left wrist, initial encounter Apply ice as tolerated. Related to Sprain of left wrist, initial encounter Elevate extremity above heart. R elated to Right shoulder tendonitis Immobilize as directed. Related to Right shoulder tendonitis Apply ice as tolerated. Related to Right shoulder tendonitis Take medication as directed. Rel ated to Right shoulder tendonitis Home exercise program Related to Right shoulder tendonitis Activity as tolerated Related to Right shoulder tendonitis Elevate extremity above heart. R elated to Sprain of left wrist, initial encounter home exercise program Related to Primary osteoarthritis of right knee Take medication as directed. Rel ated to Sprain of left wrist, initial encounter Home exercise program Related to Sprain of left wrist, initial encounter Activity as tolerated Related to Sprain of left wrist, initial encounter activity as tolerated Related to Primary osteoarthritis of right knee apply heating pad or ice as tolerated Related to Primary osteoarthritis of right knee elevate higher than your heart R elated to Primary osteoarthritis of right knee Apply ice as tolerated. Related to Trochanteric bursitis, left hip Elevate extremity above heart. R elated to Trochanteric bursitis, left hip Immobilize as directed. Related to Trochanteric bursitis, left hip Apply ice as tolerated. Related to Trochanteric bursitis of right hip Apply ice as tolerated. Related to Rotator cuff tear Immobilize as directed. Related to Rotator cuff tear Elevate extremity above heart. R elated to Rotator cuff tear Physical activity counseling Rel ated to Dietary Surveillance Counseling Assessments Type Assessment Date assessment Complete tear of right rotator c uff Patient Care Teams Name Effective Dates (start - stop) Status Members No Information
--- NOTE | 2025-02-10 09:00 | NEURO_ITS ---
Impression: # Complains of numbness of feet. ? # History of lower back surgery and knee surgery. ? 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 Nerve Conduction Studies ?Stim Site NR Peak (ms) P-T Amp (?V) Site1 Site2 Delta-P (ms) Dist (cm) William (m/s) Left Sup Fibular Anti Sensory (Ant Lat Mall) 14 cm ? 4.3 7.7 14 cm Ant Lat Mall 4.3 16.0 37 Right Sup Fibular Anti Sensory (Ant Lat Mall) 14 cm ? 4.8 3.1 14 cm Ant Lat Mall 4.8 16.0 33 Left Sural Anti Sensory (Lat Mall)??? NO RESPONSE Calf NR Calf Lat Mall 16.0 Right Sural Anti Sensory (Lat Mall) Calf ? 5.0 6.1 Calf Lat Mall 5.0 16.0 32 ?Stim Site NR Onset (ms) O-P Amp (mV) Site1 Site2 Delta-0 (ms) Dist (cm) William (m/s) Left Peroneal Motor (Vastus Med) Ankle ? 2.7 1.3 Popit Ankle 11.6 42.0 36 Popit ? 14.3 0.2 Right Peroneal Motor (Vastus Med) Ankle ? 2.7 0.8 Popit Ankle 12.1 44.0 36 Popit ? 14.8 0.5 Left Tibial Motor (Abd Yarbrough Brev) Ankle ? 5.8 1.1 Knee Ankle 9.8 45.0 46 Knee ? 15.6 0.8 Right Tibial Motor (Abd Yarbrough Brev) Ankle ? 6.4 0.3 Knee Ankle 10.3 44.0 43 Knee ? 16.7 0.4 F Wave Studies ?NR F-Lat (ms) L-R F-Lat (ms) Left Peroneal (Mrkrs) (EDB)??? DISPERSED RESPONSE NR Right Peroneal (Mrkrs) (EDB)??? DISPERSED RESPONSE NR Left Tibial (Mrkrs) (Abd Hallucis)??? DISPERSED RESPONSE NR Right Tibial (Mrkrs) (Abd Hallucis)??? DISPERSED RESPONSE NR Electromyography ?Side Muscle Nerve Root Ins Act Fibs Amp Dur Recrt Comment Right AntTibialis Dp Br Fibular L4-5 Nml Nml Nml Nml Nml Right Gastroc Tibial S1-2 Nml Nml Nml Nml Nml Right Fibularis Long Sup Br Fibular L5-S1 Nml Nml Nml Nml Nml Right Flex Dig Long Tibial L5-S2 Nml Nml Nml Nml Nml Right Ext Dig Brev Dp Br Fibular L5, S1 Nml Nml Nml Nml Nml Right QuadratusFem QuadFemoris L4-5, S1 Nml Nml Nml Nml Nml Left AntTibialis Dp Br Fibular L4-5 Nml Nml Nml Nml Nml Left Gastroc Tibial S1-2 Nml Nml Nml Nml Nml Left Fibularis Long Sup Br Fibular L5-S1 Nml Nml Nml Nml Nml Left Flex Dig Long Tibial L5-S2 Nml Nml Nml Nml Nml Left Ext Dig Brev Dp Br Fibular L5, S1 Nml Nml Nml Nml Nml Left QuadratusFem QuadFemoris L4-5, S1 Nml Nml Nml Nml Nml
--- OUTSIDE RECORDS SUMMARY | 2025-02-10 09:29 | XMS_ITS | Clinical Summary ---
Author Organization [facility] Address [address] [place] [address] Phone Care Team Providers Care Block Captain Name Role Phone Blake Bustillo DO Primary Care Provider [phone] Allergies No known active allergies Medications lisinopril (PRINIVIL) 10 mg tablet Take 10 mg by mouth daily take 1 tablet (10MG) daily. Active Tadalafil (CIALIS) 5 mg tablet take 1 tablet (5MG) by oral route every day 08/27/2011 Active multivitamin (DAILY-JUNE) tablet Take 1 Tab by mouth daily. Active omega-3 fatty acids-fish oil 300-1,000 mg Capsule Take by mouth daily . Active aspirin (ECOTRIN EC) 81 mg [...] 6 Tablets 40 Tablet 05/09/2017 8:14 PM SOFTWARE DEVELOPMENT PROJECT MANAGER 05/09/2017 Active diazePAM (VALIUM) 5 mg tablet Take 1 Tablet by mouth every 6 hours as needed for Anxiety. 20 Tablet 05/09/2017 8:14 PM SOFTWARE DEVELOPMENT PROJECT MANAGER 05/09/2017 Active docusate sodium (COLACE) 100 mg capsule Take 1 Capsule by mouth 2 times daily. 20 Capsule 05/09/2017 8:14 PM SOFTWARE DEVELOPMENT PROJECT MANAGER 05/09/2017 Active amLODIPine (NORVASC) 10 mg tablet Take 1 Tablet (10 mg) by mouth daily. 90 Tablet 3 11/16/2024 Active atorvastatin (LIPITOR) 40 mg tablet Take 1 Tablet (40 mg) by mouth late in the day. 90 Tablet 3 11/22/2024 Active Active Problems Problem Noted Date Diagnosed Date MAHMOOD (dyspnea on exertion) 09/11/2024 Mixed hyperlipidemia 03/14/2024 Primary hypertension 03/14/2024 S/P AAA repair 03/14/2024 Dilated aortic root 03/14/2024 Coronary artery disease invo lving [place] coronary artery of [place] heart without angina pectoris 03/14/2024 URIEL (obstructive sleep apnea) 03/14/2024 Erectile dysfunction 03/14/2024 Postprocedural hypotension 06/11/2016 Lactic acidosis 06/11/2016 Abdominal aortic aneurysm greater than 39 mm in diameter 06/06/2016 Encounters Date Type Department Care Team Description 02/08/2025 External Device Data STL ABSTRACTION Provider, Abstract 01/11/2025 External Device Data STL ABSTRACTION Provider, Abstract 12/28/2024 External Device Data STL ABSTRACTION Provider, Abstract 12/01/2024 External Device Data STL ABSTRACTION Provider, Abstract 11/22/2024 Orders Only [facility] [address] [place] [phone] Mari Sharpe RN 11/22/2024 Telephone [facility] [address] [place] [phone] Tyler Grossman MD New Prescription Request 11/16/2024 Refill [facility] [address] [place] [phone] Tyler Grossman MD 11/16/2024 Refill [facility] - [facility] [address] [phone] Tyler Grossman MD 11/10/2024 External Device Data STL ABSTRACTION Provider, Abstract 11/10/2024 External Device Data STL ABSTRACTION Provider, Abstract 11/10/2024 External Device Data STL ABSTRACTION Provider, Abstract from Last 3 Months Immunizations Immunization Administration [...] on file Legal Sex Male 4:30 AM SOFTWARE DEVELOPMENT PROJECT MANAGER Gender Identity Not on file Sexual Orientation Not on file Occupation Industry Job Start Date Job End Date Not on file Not on file Not on file Not on file Last Filed Vital Signs Vital Sign Reading Time Taken Comments Blood Pressure 122/75 08/26/2024 11:08 AM CDT Pulse 85 08/26/2024 11:08 AM CDT Temperature 36.9 C (98.4 F) 05/09/2017 10:03 PM SOFTWARE DEVELOPMENT PROJECT MANAGER Respiratory Rate 14 05/09/2017 10:03 PM SOFTWARE DEVELOPMENT PROJECT MANAGER Oxygen Saturation 98% 08/26/2024 11:08 AM CDT Inhaled Oxygen Concentration - - Weight 103 kg (227 lb 1.6 oz) 08/26/2024 11:08 A M CDT Height 182.9 cm (6') 08/26/2024 11:08 AM CDT Body Mass Index 30.8 08/26/2024 11:08 AM CDT Plan of Treatment Upcoming Encounters Date Type Department Care Team (Late st Contact Info) Description 10/27/2025 8:45 AM CDT Office Visit [facility] At [address] [place] [phone] Tyler Grossman MD [address] [place] [address] [address] [place] [address] Health Maintenance Due Date Last Done Comments DTAP/TDAP/TD VACCINES (1 - Tdap) 01/09/1968 PNEUMOCOCCAL VACCINE 50+ YEARS (1 of 2 - PCV) 01/08/19 68 ZOSTER VACCINE (1 of 2) 1999 RSV VACCINE (60+ or ) (1 - 1-dose 75+ series) 01/09/2024 INFLUENZA VACCINE (#1) 2024 04/06/2016 COLORECTAL SCREENING Discontinued 04/28/2011 Colorectal Cancer Screening Discontinued FIT-DNA Q 3 years Discontinued FIT/FOBT Q 1 year Discontinued Flex Sig/CT Colonography Q 5 years Discontinued Medical Devices Implanted Type Area Statement Processor Device Identifier Shelf Expiration Date Model / Serial / Lot Endobutton 4x12mm [id number] - [id number] Implanted:Qty : 1 on 02/01/2014 by Shay Silveira MD at [facility] Right: Arm GRANGER NEPHEW- ENDOSCOPY 04/27/2016 [id number] / / [id number] [place] Sut Bio Swvlck-C [id number] - [id number] Implanted:Qty : 1 on 05/09/2017 by Min Last MD at [facility] Right: Shoulder [employer] [id number] 02/25/2019 AR-2324BC C-2 / / [id number] Graft Hmshld Gold Bifur [id number] - [id number] Implanted:Qty : 1 on 06/10/2016 by Adrien Fontana MD at [facility] Graft N/A: Abdomen [employer] 01/25/2021 [id number] / / [id number] Explanted Type Area Statement Processor Device Identifier Shelf Expiration Date Model / Serial / Lot Pin Tony Plain 5/64x9in [id number] - [id number] Explanted:Qty: 1 on 02/01/2014 at [facility] Pin Right: Rohit [facility] [id number] / Description:load 36, jan 30, 2014 Insurance AET[employer] O MCR RX AET[employer] Medicare Part D Advance Directives For more information, please contact: [phone] * Full Code (Latest Code Status on [...] 9:54 AM 02/01/2014 4:53 PM Care Teams Block Captain Relationship Specialty Start Date End Date Blake Bustillo DO [address] [facility] [address] [place] [address] PCP - General Internal Medicine 01/25/14
--- OUTSIDE RECORDS SUMMARY | 2025-02-10 09:29 | XMS_ITS | Clinical Summary ---
Author Organization [facility] Address [address] [place] [id number] Care Team Providers Care Linen Controller Name Role Phone None, Provider MD Primary Care Provider Unavaila ble Allergies No known active allergies Medications amLODIPine (NORVASC) 10 MG tablet Take 1 tablet (10 mg total) by mouth daily. 06/25/2024 Active atorvastatin (LIPITOR) 40 MG tablet Take 1 tablet (40 mg total) by mouth daily. 05/17/2024 Active thiamine 100 MG Tab Take 1 tablet (100 mg total) by mouth daily. 09/29/2024 Active pregabalin (LYRICA) 150 MG capsule Take 1 capsule (150 mg total) by mouth 3 (three) times daily. 10/06/2024 Active omeprazole (PRILOSEC) 40 MG capsule Take 1 capsule (40 mg total) by mouth daily. 08/17/2024 Active tamsulosin (FLOMAX) 0.4 MG Cap Take 1 capsule (0.4 mg total) by mouth daily. Active testosterone cypionate (DEPO TESTOSTERONE) 200 MG/ML injection Inject 1 mL (200 mg total) into the muscle. 1/2 ml twice weekly 10/19/2024 Active anastrozole (ARIMIDEX) 1 MG tablet Take 1 tablet by mouth. Once weekly Active aspirin EC 81 MG tablet Take 1 tablet (81 mg total) by mouth daily. Active budesonide-form oterol (SYMBICORT) 160-4.5 MCG/ACT inhaler Inhale 2 puffs into the lungs 2 (two) times daily. 08/05/2024 Active coenzyme Q-10 (CO Q-10) 100 MG capsule Take 2 capsules (200 mg total) by mouth daily. Active hydroCHLOROthia zide (HYDRODIURIL) 25 MG tablet Take 1 tablet (25 mg total) by mouth every morning. Active Multiple Vitamin (DAILY VITES) Tab Take 1 tablet by mouth daily. Active Active Problems Problem Noted Date Diagnosed Date Lumbar radiculopathy 01/13/2025 Trochanteric bursitis of both hips 10/28/2024 Encounters Date Type Department Care Team Description 01/13/2025 Prep for Procedure [facility] Interventional [place] [address] [id number] Mark Fung CNP 12/21/2024 11:00 AM CDT - 12/21/2024 11:20 AM CDT Surgery [facility] [place]ventional [place] [address] [id number] Lucia Woo MD INJECTION TROCHANTERIC BURSA 12/21/2024 9:36 AM CDT - 12/21/2024 11:01 AM CDT Hospital Encounter [facility] [place] [address] [id number] Lucia Woo MD Discharge Disposition: Home or Self Care (Routine Discharge) 12/21/2024 Travel from Last 3 Months Family History Medical History Relation Comments Diabetes Brother Cancer Father back surgery Father Diabetes Mother Heart Disease Mother Cancer Sister Relation Status Comments Brother Father Mother Sister Social History Tobacco Use Types Packs/Day Years Used Date Smoking Tobacco: Former Cigarettes Q uit: 1998 Smokeless Tobacco: Never Tobacco Cessation:Counseling Given: Not Answered Alcohol Use Standard Drinks/Week Comments Yes 0 (1 standard drink = 0.6 oz pur e alcohol) Sex and Gender Information Value Date Recorded Sex Assigned at Male 10/28/2024 10:09 AM CDT Legal Sex Male 7:33 AM CDT Gender Identity Not on file Sexual Orientation Not on file Last Filed Vital Signs Vital Sign Reading Time Taken Comments Blood Pressure 133/54 12/21/2024 9:47 AM CDT Pulse 77 12/21/2024 9:47 AM CDT Temperature 36.9 C (98.4 F) 12/21/2024 9:47 AM CDT Respiratory Rate 18 12/21/2024 9:47 AM CDT Oxygen Saturation 95% 12/21/2024 9:47 AM CDT Inhaled Oxygen Concentration - - Weight 104.3 kg (230 lb) 12/21/2024 9:47 AM CDT Height 180.3 cm (5' 11) 12/21/2024 9:47 AM CDT Body Mass Index 32.08 12/21/2024 9:47 AM CDT Plan of Treatment Upcoming Encounters Date Type Department Care Team (Latest Contact Info) Description 03/03/2025 12:00 PM [facility] Hospital Encounter [facility] [place]ventional [place] [address] [id number] Lucia Woo MD [address] [address] 03/03/2025 12:00 PM [facility] - 03/03/2025 12:20 PM [facility] Surgery [facility] [place]ventional [place] [address] [id number] Lucia Woo MD [address] [address] INJECTION EPIDURAL LUMBAR [id number] Scheduled Procedures Name Priority Associated Diagnoses Date/Ti me INJECTION EPIDURAL LUMBAR INTERLAMINAR Lumbar radiculopathy 03/03/2025 12:00 PM [facility] Health Maintenance Due Date Last Done Comments Hepatitis C 1968 DTaP, Tdap and Td Vaccines (1 - Tdap) 01/09/1969 COVID-19 Vaccine (8 - Moderna risk season) 2024 02/13/2024, 02/21/2023, 01/25/2022, Additional history exists Influenza Adult (#1) 2025 12/30/2023, 02/02/2020, 02/24/2019, Additional history exists Pneumococcal Vaccine: 50+ Years Completed 07/01/2017, 03/27/2016 Zoster Vaccines Completed 05/05/2019, 02/24/2019 RSV Immunization or 60+ Years Completed 02/21/2023 Hepatitis A Vaccines Aged Out No long er eligible based on patient's age to complete this topic Meningococcal B Vaccine Aged Out No l onger eligible based on patient's age to complete this topic Meningococcal Vaccine Aged Out No christiano patti eligible based on patient's age to complete this topic RSV Immunizations Under 20 Months Aged Out No longer eligible based on patient's age to complete this topic Goals Goal Patient Goal Type Associated Problems Recent Progress Patient-Stated? Author Autogenera carol ann Goal Care Plan Autogenerated Problem No Macy Valero V Procedures Procedure Name Priority Date/Time Associated Diagnosis Comments DRAIN/INJECT LARGE JOINT/BURSA 12/21/2024 10:44 AM CDT Trochanteric bursitis of both hips XR PAIN [facility] C-ARM Today 12/21/2024 10:11 AM CDT from Last 3 Months Results * XR PAIN CLINIC C-ARM (12/21/2024 10:11 AM CDT) Narrative Radiology, Technologist - 12/21/2024 10:11 AM CDT This report does not contain a radiologist's interpretation. Please review associated procedure and/or operative report. Lucia Woo MD GENERAL IMAGING Final Result from Last 3 Months Additional Health Concerns Active Problems Noted Date Diagnosed Date Autogenerated Problem 01/20/2025 Insurance AETNA Care Teams Linen Controller Relationship Specialty Start Date End Date None, Provider, PCP - General UNKNOWN PHYSICIAN SPECIALTY 10/28/24
--- OUTSIDE RECORDS SUMMARY | 2025-02-10 09:29 | XMS_ITS | Clinical Summary ---
Author Organization [facility] Address [address] [place] [address] Care Team Providers Care Auto Body Painter Name Role Phone KenyBlake Matheus GOYAL Primary Care Provider [phone] Source Comments [facility]),non-owned Affiliates and Associated Physician Practices is amultiple site organization consisting of ambulatory clinics and hospital sitesin [place], [place], [place] and [place]. This disclosure is being madepursuant to the Care Everywhere program and may not contain all information available regarding this patient. Last updated 18.[facility] Allergies No known active allergies Medications * [...] on file Legal Sex Male 11:38 AM MANUSCRIPT EDITOR Gender Identity Not on file Sexual Orientation Not on file Last Filed Vital Signs Vital Sign Reading Time Taken Comments Blood Pressure 126/72 03/09/2018 6:44 PM MANUSCRIPT EDITOR Pulse 77 03/09/2018 6:44 PM MANUSCRIPT EDITOR Temperature 36.3 C (97.4 F) 03/09/2018 6:15 PM MANUSCRIPT EDITOR Respiratory Rate 16 03/09/2018 6:44 PM MANUSCRIPT EDITOR Oxygen Saturation 94% 03/09/2018 6:44 PM MANUSCRIPT EDITOR Inhaled Oxygen Concentration - - Weight 96.2 kg (212 lb) 03/09/2018 10:54 AM MANUSCRIPT EDITOR Height 180.3 cm (5' 11) 03/09/2018 10:54 AM MANUSCRIPT EDITOR Body Mass Index 29.57 03/09/2018 10:54 AM MANUSCRIPT EDITOR Plan of Treatment Health Maintenance Due Date Last Done Comments HEPATITIS C SCREENING 01/04/1967 DTAP/TDAP/TD VACCINES (1 - Tdap) 01/09/1968 PNEUMOCOCCAL VACCINE 50+ (1 of 1 - PCV) 1999 ZOSTER VACCINE (1 of 2) 1999 Respiratory Syncytial Virus (RSV) Vaccine Pt: or over 60 yrs (1 - 1-dose 75+ series) 01/09/2024 DEPRESSION SCREENING 04/28/2024 MEDICARE AWV CALENDAR YEAR 2024 COVID-19 VACCINE (1 - 2023-2 5 season) 2024 INFLUENZA VACCINE (#1) 2024 HEPATITIS B VACCINE Aged Out No [...] this topic Medical Devices Implanted Type Area Logistics Manager Device Identifier Shelf Expiration Date Model / Serial / Lot [place] Sut Healicoil Ulbrd 5.5mm Implanted:Qty: 2 on 03/09/2018 by Min Last MD at [facility] Right: Shoulder [employer]hew [employer]opaedics 04/30/2022 [id number] / / [id number] Description:Healicoil PK 5.5 MM Suture [place] with Two ULTRABRAID Sutures [place] Sut Multifix S Ult Peek Kntls 5.5 Implanted:Qty: 2 on 03/09/2018 by Min Last MD at [facility] Right: Shoulder Fung & Nephew Endoscopy 11/17/2020 [id number] / / [id number] [place] [address] [employer] AETNA MEDICARE ADV SELF PAY NO INSURANCE Member Subscriber Plan / Payer (Ef fective for All Dates) Name:Adrien Root Member ID:Not on file Relation to Subscriber:Not on file Name:ADRIEN ROOT Subscriber ID:Not on file (Home) Address: [address] [place] [address] [place] [address] Payer ID:Not on file Group ID:Not on file Type:Self Pay Address: [place], [place] A[place] Care Teams Auto Body Painter Relationship Specialty Start Date End Date Blake Bustillo DO [address] [facility] [address] [place] [address] PCP - General Internal Medicine 03/09/18
--- OUTSIDE RECORDS SUMMARY | 2025-02-10 09:29 | XMS_ITS | Encounter Summary ---
Author Organization [facility] Address [address] [place] [address] Care Team Providers Care Ceramic Products Sales Engineer Name Role Phone AylaBlake hancock Primary Care Provider [phone] Encounter Details Date Type Department Care Team (Late st Contact Info) Description 02/08/2025 External Device Data ST[facility] ABSTRACTION [...] on file Legal Sex Male 4:30 AM LITIGATION ATTORNEY Gender Identity Not on file Sexual Orientation Not on file Occupation Industry Job Start Date Job End Date Not on file Not on file Not on file Not on file documented as of this encounter Plan of Treatment Upcoming Encounters Date Type Department Care Team (Late st Contact Info) Description 10/27/2025 8:45 AM CDT Office Visit [facility] At [address] [place] [address] Tyler Grossman MD [address] [place] [address] [address] [place] [address] documented as of this encounter Visit Diagnoses Not on filedocumented in this encounter Care Teams Ceramic Products Sales Engineer Relationship Specialty Start Date End Date Keny DO Blake [address] [facility] [address] [facility] [address] [place] [address] PCP - General Internal Medicine 01/25/14 documented as of this encounter
--- OUTSIDE RECORDS SUMMARY | 2025-02-10 09:30 | XMS_ITS | Clinical Summary ---
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 Patient verbalized understanding. 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 with documented spasm [...] on file Legal Sex Male 3:48 AM TRAVEL JOURNALIST Gender Identity Male 08/22/2021 10:36 AM CDT Sexual Orientation Straight 01/29/2021 8: 39 PM CDT Occupation Industry Job Start Date Job End Date 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 [employer] Not on file Not on file Not on file Obstetrics History Last Filed Vital Signs Vital Sign Reading Time Taken Comments Blood Pressure 120/70 04/01/2024 1:30 PM TRAVEL JOURNALIST Pulse 63 04/01/2024 1:30 PM TRAVEL JOURNALIST Temperature 36.3 C (97.4 F) 04/01/2024 1:00 PM TRAVEL JOURNALIST Respiratory Rate 18 04/01/2024 1:30 PM TRAVEL JOURNALIST Oxygen Saturation 91% 04/01/2024 1:30 PM TRAVEL JOURNALIST Inhaled Oxygen Concentration - - Weight 105 kg (231 lb 6.4 oz) 03/29/2024 12:44 P M TRAVEL JOURNALIST Height 180.3 cm (5' 11) 03/29/2024 12:44 PM TRAVEL JOURNALIST Body Mass Index 32.27 03/29/2024 12:44 PM TRAVEL JOURNALIST Plan of Treatment Health Maintenance Due Date Last Done Comments Hepatitis C Screening 1949 DTaP/Tdap/Td Vaccine (1 - Tdap) 01/09/1960 Hepatitis B Screening 1967 Well Visit 65+ 2014 Depression Screening 01/30/2022 01/30/2021, 01/31/20 21 Fall Risk Assessment 07/15/2024 07/16/2023, 07/09/2023, 04/08/2023, Additional history exists Covid-19 Vaccine (2024-2 6 season) 2024 08/25/2021, 03/02/2021, 07/20/2020, Additional history exists Influenza Vaccine (#1) 2024 , 02/02/2020, 02/24/2019, Additional history exists Pneumococcal vaccine [...] as needed Medical Devices Implanted Type Area English Professor Device Identifier Shelf Expiration Date Model / Serial / Lot Acuity [employer] Inc [id number] Tissue Bone Void Filler Acupac Plus 25cc - [id number] - [id number] Implanted:Qty: 1 on 07/06/2020 by Zenon Mead MD at [facility] Graft N/A: Spine Lumbar Acuity Surgical Inc 09/24/2023 [id number] / [id number] / [id number] Medtronic NetTalon [id number] Infuse 14mm 23mm Absorbable Sponge Sterile Water Syringe Needle - S. - [id number] Implanted:Qty: 1 on 07/06/2020 by Zenon Mead MD at [facility] Graft N/A: Spine Lumbar Medtronic Inc 01/26/2021 [id number] / . / [id number] Globus Medical 1134.001 Creo Spinal Cap Locking Nonsterile Mis - S. - [id number] Implanted:Qty: 4 on 07/06/2020 by Zenon Mead MD at [facility] Other - see comments N/A: Spine Lumbar Glob[employer] Medical 07/06/2020 1134.0010 / . / Globus Medical 193.122 Rise [id number] 10d Lordotic Spacer Spinal Nonsterile - S. - [id number] Implanted:Qty: 1 on 07/06/2020 by Zenon Mead MD at [facility] Other - see comments N/A: Spine Lumbar Gl[employer] Medical 07/06/2020 193.122 / . / Globus Medical 1134.7055 Creo Mis 5.5mm 55mm Curve Erich Spinal Titanium - S. - [id number] Implanted:Qty: 2 on 07/06/2020 by Zenon Mead MD at [facility] Other - see comments N/A: Spine Lumbar [facility] 07/06/2020 1134.7055 / . / Globus Medical 1134.01 Creo Mis 30mm Modular Polyaxial Tulip Head Screw Bone - S. - [id number] Implanted:Qty: 4 on 07/06/2020 by Zenon Mead MD at [facility] Screw N/A: Spine Lumbar [facility] 07/06/2020 1134.0100 / . / Globus Medical 1067.4650 Creo 6.5mm 50mm Cannulated Modular Spine Screw Bone - S. - [id number] Implanted:Qty: 4 on 07/06/2020 by Zenon Mead MD at [facility] Screw N/A: Spine Lumbar [facility] 07/06/2020 1067.4650 / . / Allosource Cubes Graft 15ml Bone Cancellous [id number] - [id number] Implanted:Qty: 1 on 10/25/2021 by Chevy Teresa MD at [facility] N/A: Lumbar-S acral Spine Allosource 11/22/2025 [id number] / / [id number] Integra Lifesciences Carlene Dp-1011 Duragen Plus 1x1in Patch Resorbable Suturable Cranial Dura Graft - [id number] Implanted:Qty: 1 on 10/25/2021 by Chevy Teresa MD at [facility] N/A: Lumbar-S acral Spine Integra Lifesciences Carlene [id number] / / Depuy Synthes Spine Expedium 6.5mm 50mm Polyaxial Spine Screw Bone Titanium 5.5mm Erich [id number] - [id number] Implanted:Qty: 2 on 10/25/2021 by Chevy Teresa MD at [facility] N/A: Lumbar-S acral Spine Depuy Synthes Spine [id number] / / Depuy Synthes Spine Expedium 6.5mm 45mm Polyaxial Spine Screw Bone Titanium 5.5mm Erich [id number] - [id number] Implanted:Qty: 6 on 10/25/2021 by Chevy Teresa MD at [facility] N/A: Lumbar-S acral Spine Depuy Synthes Spine [id number] / / Depuy Synthes Spine Expedium 1 Inner Monoaxial Spine Screw Set Titanium [id number] - [id number] Implanted:Qty: 8 on 10/25/2021 by Chevy Teresa MD at [facility] N/A: Lumbar-S acral Spine Depuy Synthes Spine [id number] / / Depuy Synthes Spine Expedium Od5.5 Mm L90 Mm Line Prebent Erich Spinal Titanium Nonsterile [id number] - [id number] Implanted:Qty: 1 on 10/25/2021 by Chevy Teresa MD at [facility] N/A: Lumbar-S acral Spine Depuy Synthes Spine [id number] / / Depuy Synthes Spine Substitute Bone Graft Fibergraft Gps Medium Putty 6cc [id number] - [id number] Implanted:Qty: 1 on 10/25/2021 by Chevy Teresa MD at [facility] N/A: Lumbar-S acral Spine Depuy Synthes Spine [id number] 10/26/2023 [id number] / / [id number] Depuy Synthes Spine Cage Post Spinal Lumbar 8 Degree Tlif Curved Eit Plif [id number] Titanium [id number] - [id number] Implanted:Qty: 1 on 10/25/2021 by Chevy Teresa MD at [facility] N/A: Lumbar-S acral Spine Depuy Synthes Spine [id number] 04/27/2023 [id number] / / [id number] Explanted Type Area English Professor Device Identifier Shelf Expiration Date Model / Serial / Lot Medtronic Inc Vectris 5mm 60cm 1x8 Electrode Trial Lead Neurostimulator [id number] - Sn/A - [id number] Implanted:Qty: 1 on 07/09/2023 by Carey Sosa MD at [facility] Explanted:Qty: 1 Spinal Cord Stimulator Back Medtronic Inc 06/06/2027 [id number] / N/A / [id number] Medtronic Inc Vectris 5mm 60cm 1x8 Electrode Trial Lead Neurostimulator [id number] - Sn/A - [id number] Implanted:Qty: 1 on 07/09/2023 by Carey Sosa MD at [facility] Explanted:Qty: 1 Spinal Cord Stimulator Back Medtronic Inc 06/20/2027 [id number] / N/A / [id number] Screws Explanted:Qty: 3 on 04/01/2024 by Dima Terrell MD at [facility] Left: Elbow Other 0 / [...] Most Recently Relevant to Health Maintenance Insurance [facility] MEDICARE [facility] MEDICARE Address: [facility] [id number] [place] [phone] [facility] MEDICARE GOLD Advance Directives For more information, please contact: [phone] * Full Code (Latest Code Status on File) Date Activated Date Inactivated Comments 10/25/2021 8:19 PM 10/28/2021 6:25 PM * Full Code Date Activated Date Inactivated Comments 07/06/2020 5:18 PM 07/07/2020 7:26 PM Care Teams Coke Worker Relationship Specialty Start Date End Date Mervin Handley DO PCP - General Internal Medicine 03/17/24 Leon Weir MD School Traffic Supervisor Cardiology 06/21/20 Carey Sosa MD Consulting Physician Pain Management 03/11/23
== END 2025-02-10 08:56 | disposition home or self-care (01) ==
LOC: ANHNEURO 08:56
PROVIDERS: PCP Nurse Practitioner Family; Visit Provider Psychiatry & Neurology Neurology
DX: G62.9 Polyneuropathy, unspecified (principal)
CPT/HCPCS: 95886; 95910

== ENCOUNTER 2025-04-13 13:38 | Outpatient (CLI) | payer MEDICARE, SELFPAY ==
--- NOTE | ~2025-04-13 | CT_ITS ---
EXAM/PROCEDURE: CT abdomen pelvis wo/w con HISTORY: Hematuria COMPARISON: October 01, 2022 TECHNIQUE: Pre and postcontrast CT of abdomen about FINDINGS: Several benign-appearing cysts are present in both kidneys with the largest in the right kidney measuring 4.5 cm compared to 4.2 cm on the previous exam. Parapelvic cysts are also present in the right kidney. Parapelvic cysts are present in the left kidney as well. The largest left renal cyst is in the lower pole and measures 2.3 cm. The ureters are almost completely enhance, except for the distal third of the left ureter. The ureters appear normal. No discrete lesion seen in the urinary bladder. The urinary bladder is not completely filled with contrast. The prostate is mildly enlarged. Adrenal glands appear normal. Small fat-containing only inguinal hernias. No bulky mesenteric or retroperitoneal lymphadenopathy or masses. Spleen stomach pancreas adrenal glands liver and gallbladder appear stable. No AAA. Moderate atherosclerotic disease with no acute arterial occlusion seen. Large left lobe liver cysts unchanged in appearance. Lung bases clear. Heart size normal. Mild coronary artery calcifications. Nonobstructive bowel gas pattern with no free air free fluid or pneumatosis. Degenerative changes present throughout the lumbar spine. Posterior transpedicle fusion hardware present L3-S1. No gross hardware loosening or failure. IMPRESSION: 1. Numerous bilateral renal cysts all of which appear simple/benign. No suspicious renal lesion or ureteral lesion. The urinary bladder also appears within normal limits for technique. The distalmost portion of the left ureter and urinary bladder are not completely opacified. 2. Other chronic appearing findings as above. Reviewed, dictated and finalized at location A. RICAL CONTROL MACHINE TOOL OPERATOR IMPRESSION: 1. Numerous bilateral renal cysts all of which appear simple/benign. No suspici ous renal lesion or ureteral lesion. The urinary bladder also appears within no rmal limits for technique. The distalmost portion of the left ureter and urinar y bladder are not completely opacified. 2. Other chronic appearing findings as above.
[2025-04-13 14:15] LABS: Estimated Glomerular Filt Rate 46
== END 2025-04-13 13:39 | disposition home or self-care (01) ==
LOC: MICIMG 13:40
PROVIDERS: PCP Physician Assistant; Visit Provider Physician Assistant
DX: R31.9 Hematuria, unspecified (principal); N28.1 Cyst of kidney, acquired
CPT/HCPCS: 74178; Q9967

== ENCOUNTER 2025-04-19 09:54 | Outpatient (CLI) | payer MEDICARE, SELFPAY ==
--- OUTSIDE RECORDS SUMMARY | 2025-04-19 10:22 | XMS_ITS | Clinical Summary ---
Author Organization [facility] Address [address] [facility] [place] [address] Care Team Providers Care Assistant Editor Name Role Phone KenyErichBlakeele Jarvis DO Primary Care Provider [phone] Source Comments [facility],non-owned Affiliates and Associated Physician Practices is amultiple site organization consisting of ambulatory clinics and hospital sitesin [place], [place], [place] and [place]. This disclosure is being madepursuant to the Care Everywhere program and may not contain all information available regarding this patient. Last updated 18.[facility] Allergies No known active allergies Medications * [...] on file Legal Sex Male 11:38 AM CAD MANAGER Gender Identity Not on file Sexual Orientation Not on file Last Filed Vital Signs Vital Sign Reading Time Taken Comments Blood Pressure 126/72 03/09/2018 6:44 PM CAD MANAGER Pulse 77 03/09/2018 6:44 PM CAD MANAGER Temperature 36.3 C (97.4 F) 03/09/2018 6:15 PM CAD MANAGER Respiratory Rate 16 03/09/2018 6:44 PM CAD MANAGER Oxygen Saturation 94% 03/09/2018 6:44 PM CAD MANAGER Inhaled Oxygen Concentration - - Weight 96.2 kg (212 lb) 03/09/2018 10:54 AM CAD MANAGER Height 180.3 cm (5' 11) 03/09/2018 10:54 AM CAD MANAGER Body Mass Index 29.57 03/09/2018 10:54 AM CAD MANAGER Plan of Treatment Health Maintenance Due Date Last Done Comments HEPATITIS C SCREENING 01/04/1967 DTAP/TDAP/TD VACCINES (1 - Tdap) 01/09/1968 PNEUMOCOCCAL VACCINE 50+ (1 of 1 - PCV) 1999 ZOSTER VACCINE (1 of 2) 1999 Respiratory Syncytial Virus (RSV) Vaccine Pt: or over 60 yrs (1 - 1-dose 75+ series) 01/09/2024 DEPRESSION SCREENING 04/28/2024 MEDICARE AWV CALENDAR YEAR 2024 COVID-19 VACCINE (1 - 2024-2 6 season) 2024 INFLUENZA VACCINE (#1) 2024 HEPATITIS [...] this topic Medical Devices Implanted Type Area Third Helper Device Identifier Shelf Expiration Date Model / Serial / Lot [place] Sut Healicoil Ulbrd 5.5mm Implanted:Qty: 2 on 03/09/2018 by Min Last MD at [facility] Right: Shoulder [employer]hew [employer]ed[employer] 04/30/2022 [id number] / / [id number] Description:Healicoil PK 5.5 MM Suture [place] with Two ULTRABRAID Sutures [place] Sut Multifix S Ult Peek Kntls 5.5 Implanted:Qty: 2 on 03/09/2018 by Min Last MD at [facility] Right: Shoulder Fung & Nephew Endoscopy 11/17/2020 [id number] / / [id number] [place] [address] [place] MED[place] AETNA MEDICARE ADV SELF PAY NO INSURANCE Member Subscriber Plan / Payer (Ef fective for All Dates) Name:Adrien Root Member ID:Not on file Relation to Subscriber:Not on file Name:ADRIEN ROOT Subscriber ID:Not on file (Home) Address: [address] [place] [address] [place] [address] Payer ID:Not on file Group ID:Not on file Type:Self Pay Address: [place], [place] [employer] Care Teams Assistant Editor Relationship Specialty Start Date End Date Blake Bustillo DO [address] [facility] [address] [place] [address] PCP - General Internal Medicine 03/09/18
--- OUTSIDE RECORDS SUMMARY | 2025-04-19 10:22 | XMS_ITS | Clinical Summary ---
Author Organization [facility] Address [address] [place] [address] Phone Care Team Providers Care Music Promoter Name Role Phone Blake Bustillo DO Primary Care Provider [phone] Allergies No known active allergies Medications lisinopril [...] 6 Tablets 40 Tablet 05/09/2017 8:14 PM QUALITY LIAISON 05/09/2017 Active diazePAM (VALIUM) 5 mg tablet Take 1 Tablet by mouth every 6 hours as needed for Anxiety. 20 Tablet 05/09/2017 8:14 PM QUALITY LIAISON 05/09/2017 Active docusate sodium (COLACE) 100 mg capsule Take 1 Capsule by mouth 2 times daily. 20 Capsule 05/09/2017 8:14 PM QUALITY LIAISON 05/09/2017 Active amLODIPine (NORVASC) 10 mg tablet [...] root 03/14/2024 Coronary artery disease invo lving kenaitze coronary artery of kenaitze heart without angina pectoris 03/14/2024 URIEL (obstructive sleep apnea) 03/14/2024 Erectile dysfunction 03/14/2024 Postprocedural hypotension 06/11/2016 Lactic acidosis 06/11/2016 Abdominal aortic aneurysm greater than 39 mm in diameter 06/06/2016 Encounters Date Type Department Care Team Description 04/12/2025 External Device Data [facility] ABSTRACTION Provider, Abstract 02/16/2025 External Device Data [facility] ABSTRACTION Provider, Abstract 02/08/2025 External Device Data [facility] ABSTRACTION Provider, [...] on file Legal Sex Male 4:30 AM QUALITY LIAISON Gender Identity Not on file Sexual Orientation Not on file Occupation Industry Job Start Date Job End Date Not on file Not on file Not on file Not on file Last Filed Vital Signs Vital Sign Reading Time Taken Comments Blood Pressure 122/75 08/26/2024 11:08 AM CDT Pulse 85 08/26/2024 11:08 AM CDT Temperature 36.9 C (98.4 F) 05/09/2017 10:03 PM QUALITY LIAISON Respiratory Rate 14 05/09/2017 10:03 PM QUALITY LIAISON Oxygen Saturation 98% 08/26/2024 11:08 AM CDT Inhaled Oxygen Concentration - - Weight 103 kg (227 lb 1.6 oz) 08/26/2024 11:08 A M CDT Height 182.9 cm (6') 08/26/2024 11:08 AM CDT Body Mass Index 30.8 08/26/2024 11:08 AM CDT Plan of Treatment Upcoming Encounters Date Type Department Care Team (Late st Contact Info) Description 10/27/2025 8:45 AM CDT Office Visit [facility] At [address] [place] [address] Tyler Grossman MD [address] [place] [address] [address] [place] [address] Health Maintenance Due Date Last Done Comments [...] years Discontinued Medical Devices Implanted Type Area Field Interviewer Device Identifier Shelf Expiration Date Model / Serial / Lot Endobutton 4x12mm [id number] - [id number] Implanted:Qty : 1 on 02/01/2014 by Shay Silveira MD at [facility] [place] Right: Arm GRANGER NEPHEW- ENDOSCOPY 04/27/2016 [id number] / / [id number] [place] Sut Bio Swvlck-C 4.29b02sx [id number] - [id number] Implanted:Qty : 1 on 05/09/2017 by Min Last MD at [facility] Right: Shoulder [employer] [id number] 02/25/2019 [id number] -2 / / [id number] Graft [place] Abraham Sutton [id number] - [id number] Implanted:Qty : 1 on 06/10/2016 by Adrien Fontana MD at [facility] Graft N/A: Abdomen [employer] 01/25/2021 [id number] / / [id number] Explanted Type Area Field Interviewer Device Identifier Shelf Expiration Date Model / Serial / Lot Pin Tony Lemons 5/64x9in [id number] - [id number] Explanted:Qty: 1 on 02/01/2014 at [facility] [place] Right: Arm [facility] [id number] Description:load 36, jan 30, 2014 Insurance AETNA [facility] RX AETNA Medicare Part D Advance Directives For more information, please contact: [phone] * Full Code (Latest Code Status on [...] 9:54 AM 02/01/2014 4:53 PM Care Teams Music Promoter Relationship Specialty Start Date End Date Blake Bustillo DO [address] [facility] [address] [place] [address] PCP - General Internal Medicine 01/25/14
--- OUTSIDE RECORDS SUMMARY | 2025-04-19 10:22 | XMS_ITS | Clinical Summary ---
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 Patient verbalized understanding. 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 with documented spasm [...] on file Legal Sex Male 3:48 AM FASHION DIRECTOR Gender Identity Male 08/22/2021 10:36 AM CDT Sexual Orientation Straight 01/29/2021 8: 39 PM CDT Occupation Industry Job Start Date Job End Date 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 [employer] Not on file Not on file Not on file Last Filed Vital Signs Vital Sign Reading Time Taken Comments Blood Pressure 120/70 04/01/2024 1:30 PM FASHION DIRECTOR Pulse 63 04/01/2024 1:30 PM FASHION DIRECTOR Temperature 36.3 C (97.4 F) 04/01/2024 1:00 PM FASHION DIRECTOR Respiratory Rate 18 04/01/2024 1:30 PM FASHION DIRECTOR Oxygen Saturation 91% 04/01/2024 1:30 PM FASHION DIRECTOR Inhaled Oxygen Concentration - - Weight 105 kg (231 lb 6.4 oz) 03/29/2024 12:44 P M FASHION DIRECTOR Height 180.3 cm (5' 11) 03/29/2024 12:44 PM FASHION DIRECTOR Body Mass Index 32.27 03/29/2024 12:44 PM FASHION DIRECTOR Plan of Treatment Health Maintenance Due Date [...] as needed Medical Devices Implanted Type Area Donkey Doctor Device Identifier Shelf Expiration Date Model / Serial / Lot [employer] [id number] Tissue Bone Void Filler Acupac Plus 25cc - [id number] - [id number] Implanted:Qty: 1 on 07/06/2020 by Zenon Mead MD at [facility] Graft N/A: Spine Lumbar [employer] 09/24/2023 [id number] / [id number] / [id number] Medtronic Funinhand [id number] Infuse 14mm 23mm Absorbable Sponge Sterile Water Syringe Needle - S. - [id number] Implanted:Qty: 1 on 07/06/2020 by Zenon Mead MD at [facility] Graft N/A: Spine Lumbar Medtronic Inc 01/26/2021 [id number] / . / [id number] Glob[employer] 1134.001 Creo Spinal Cap Locking Nonsterile Mis - S. - [id number] Implanted:Qty: 4 on 07/06/2020 by Zenon Mead MD at [facility] Other - see comments N/A: Spine Lumbar [employer] 07/06/2020 1134.0010 / . / [employer] 193.122 Rise [id number] 10d Lordotic Spacer Spinal Nonsterile - S. - [id number] Implanted:Qty: 1 on 07/06/2020 by Zenon Mead MD at [facility] Other - see comments N/A: Spine Lumbar [employer] 07/06/2020 193.122 / . / [employer] 1134.7055 Creo Mis 5.5mm 55mm Curve Erich Spinal Titanium - S. - [id number] Implanted:Qty: 2 on 07/06/2020 by Zenon Mead MD at [facility] Other - see comments N/A: Spine Lumbar [facility] 07/06/2020 1134.7055 / . / [employer] 1134.01 Creo Mis 30mm Modular Polyaxial Tulip Head Screw Bone - S. - [id number] Implanted:Qty: 4 on 07/06/2020 by Zenon Mead MD at [facility] Screw N/A: Spine Lumbar [facility] 07/06/2020 1134.0100 / . / [employer] 1067.4650 Creo 6.5mm 50mm Cannulated Modular Spine Screw Bone - S. - [id number] Implanted:Qty: 4 on 07/06/2020 by Zenon Mead MD at [facility] Screw N/A: Spine Lumbar [facility] 07/06/2020 1067.4650 / . / Allosource Cubes Graft 15ml Bone Cancellous [id number] - [id number] Implanted:Qty: 1 on 10/25/2021 by Chevy Teresa MD at [facility] N/A: Lumbar-S acral Spine [employer]ource 11/22/2025 [id number] / / [id number] Integra Lifesciences Carlene Dp-1011 Duragen Plus 1x1in Patch Resorbable Suturable Cranial Dura Graft - [id number] Implanted:Qty: 1 on 10/25/2021 by Chevy Teresa MD at [facility] N/A: Lumbar-S acral Spine Integra [employer]iences Carlene [id number] / / Depuy Synthes Spine Expedium 6.5mm 50mm Polyaxial Spine Screw Bone Titanium 5.5mm Erich [id number] - [id number] Implanted:Qty: 2 on 10/25/2021 by Chevy Teresa MD at [facility] N/A: Lumbar-S acral Spine Depuy Synthes Spine [id number] / / Depuy Synthes Spine Expedium 6.5mm 45mm Polyaxial Spine Screw Bone Titanium 5.5mm Erich [id number] - [id number] Implanted:Qty: 6 on 10/25/2021 by Chevy Teresa MD at [facility] N/A: Lumbar-S acral Spine Depuy Synthes Spine [id number] / / Depuy Synthes Spine Expedium 1 Inner Monoaxial Spine Screw Set Titanium [id number] - [id number] Implanted:Qty: 8 on 10/25/2021 by Chevy Teresa MD at [facility] N/A: Lumbar-S acral Spine Depuy Synthes Spine [id number] / / Depuy Synthes Spine Expedium Od5.5 Mm L90 Mm Line Prebent Erich Spinal Titanium Nonsterile [id number] - [id number] Implanted:Qty: 1 on 10/25/2021 by Chevy Teresa MD at [facility] N/A: Lumbar-S acral Spine Depuy Synthes Spine [id number] / / Depuy Synthes Spine Substitute Bone Graft Fibergraft Gps Medium Putty 6cc [id number] - [id number] Implanted:Qty: 1 on 10/25/2021 by Chevy Teresa MD at [facility] N/A: Lumbar-S acral Spine Depuy Synthes Spine [id number] 10/26/2023 [id number] / / [id number] Depuy Synthes Spine Cage Post Spinal Lumbar 8 Degree Tlif Curved Eit Plif [id number] Titanium [id number] - [id number] Implanted:Qty: 1 on 10/25/2021 by Chevy Teresa MD at [facility] N/A: Lumbar-S acral Spine Depuy Synthes Spine [id number] 04/27/2023 [id number] / / [id number] Explanted Type Area Donkey Doctor Device Identifier Shelf Expiration Date Model / Serial / Lot Medtronic Inc Vectris 5mm 60cm 1x8 Electrode Trial Lead Neurostimulator [id number] - Sn/A - [id number] Implanted:Qty: 1 on 07/09/2023 by Carey Sosa MD at [facility] Explanted:Qty: 1 Spinal Cord Stimulator Back Medtronic Inc 06/06/2027 [id number] / N/A / [id number] Medtronic Inc Vectris 5mm 60cm 1x8 Electrode Trial Lead Neurostimulator [id number] - Sn/A - [id number] Implanted:Qty: 1 on 07/09/2023 by Carey Sosa MD at [facility] Explanted:Qty: 1 Spinal Cord Stimulator Back Medtronic Inc 06/20/2027 [id number] / N/A / [id number] Explanted:Qty: 3 on 04/01/2024 by [...] Most Recently Relevant to Health Maintenance Insurance [facility] MEDIC[facility] MEDICARE [place] Advance Directives For more information, please contact: [phone] * Full Code (Latest Code Status on File) Date Activated Date Inactivated Comments 10/25/2021 8:19 PM 10/28/2021 6:25 PM * Full Code Date Activated Date Inactivated Comments 07/06/2020 5:18 PM 07/07/2020 7:26 PM Care Teams Compensation Specialist Relationship Specialty Start Date End Date Mervin Handley DO PCP - General Internal Medicine 03/17/24 Leon Weir MD Oracle Reports Developer Cardiology 06/21/20 Carey Sosa MD Consulting Physician Pain Management 03/11/23
--- OUTSIDE RECORDS SUMMARY | 2025-04-19 10:22 | XMS_ITS | Clinical Summary ---
Author Organization [facility] Address [address] [place] [id number] Care Team Providers Care Leg Man Name Role Phone None, Provider MD Primary [...] Encounters Date Type Department Care Team Description 03/03/2025 11:40 AM CONSTRUCTION CREW MEMBER - 03/03/2025 12:00 PM [facility] Surgery [facility] [place] [address] [id number] Lucia Woo MD INJECTION EPIDURAL LUMBAR [id number] 03/03/2025 10:39 AM CONSTRUCTION CREW MEMBER - 03/03/2025 11:38 AM CONSTRUCTION CREW MEMBER Hospital Encounter [facility] [place] [address] [id number] Lucia Woo MD Discharge Disposition: Home or Self Care (Routine Discharge) 03/03/2025 Travel from Last 3 Months Family History [...] Sign Reading Time Taken Comments Blood Pressure 127/66 03/03/2025 11:32 AM CONSTRUCTION CREW MEMBER Pulse 79 03/03/2025 11:32 AM CONSTRUCTION CREW MEMBER Temperature 36.4 C (97.5 F) 03/03/2025 10:57 AM CONSTRUCTION CREW MEMBER Respiratory Rate 16 03/03/2025 11:3 2 AM CONSTRUCTION CREW MEMBER Oxygen Saturation 94% 03/03/2025 11: 32 AM CONSTRUCTION CREW MEMBER Inhaled Oxygen Concentration - - Weight 102.7 kg (226 lb 6.4 oz) 025 10:57 AM CONSTRUCTION CREW MEMBER Height 180.3 cm (5' 11) 03/03/2025 10: 57 AM CONSTRUCTION CREW MEMBER Body Mass Index 31.58 03/03/2025 10:57 AM CONSTRUCTION CREW MEMBER Plan of Treatment Health Maintenance Due Date Last Done Comments Hepatitis C 1968 DTaP, Tdap and Td Vaccines (1 - Tdap) 01[birth year]09/1969 COVID-19 Vaccine (8 - season) 2024 02/13/2024, 02/21/2023, 01/25/2022, Additional history [...] on patient's age to complete this topic Procedures Procedure Name Priority Date/Time Associated Diagnosis Comments NJX INTERLAMINAR LMBR/SAC 03/03/2025 11:26 AM CONSTRUCTION CREW MEMBER Lumbar radiculopathy XR [facility] Today 03/03/2025 10:44 AM CONSTRUCTION CREW MEMBER from Last 3 Months Results * XR PAIN [facility] C-ARM (03/03/2025 10:44 AM CONSTRUCTION CREW MEMBER) Narrative Radiology, Technologist - 03/03/2025 10:44 AM CONSTRUCTION CREW MEMBER This report does not contain a radiologist's interpretation. Please review associated procedure and/or operative report. Lucia Woo MD GENERAL IMAGING Final Result from Last 3 Months Insurance [employer] Care Teams Leg Man Relationship Specialty Start Date End Date None, Provider, MD PCP - General UNKNOWN PHYSICIAN SPECIALTY 10/28/24
[2025-04-24 15:08] LABS: Vit. B1, Whole Blood 245.7 nmol/L (66.5-200.0)
== END 2025-04-19 09:55 | disposition home or self-care (01) ==
PROVIDERS: PCP Physician Assistant; Visit Provider Psychiatry & Neurology Neurology
DX: G62.9 Polyneuropathy, unspecified (principal)
CPT/HCPCS: 84425; 84446